=== PATIENT | female | born 1930 | race Caucasian/White ===

== ENCOUNTER 2016-09-11 06:42 | Outpatient (CLI) ==
[2016-08-30 08:15] VITALS: BMI 18.3
== END 2016-09-11 06:43 | disposition home or self-care (01) ==
LOC: AMBL 06:42
PROVIDERS: ATTEND Family Medicine
DX: R10.9 Unspecified abdominal pain (principal); I48.91 Unspecified atrial fibrillation; R19.5 Other fecal abnormalities; R53.1 Weakness; Z87.19 Personal history of other diseases of the digestive system; J44.9 Chronic obstructive pulmonary disease, unspecified; I50.9 Heart failure, unspecified

== ENCOUNTER 2016-09-27 04:23 | Outpatient (CLI) ==
[2016-09-27 07:50] VITALS: BMI 17.9
== END 2016-09-27 04:24 | disposition home or self-care (01) ==
LOC: AMBL 04:23
PROVIDERS: ATTEND Family Medicine
DX: R50.9 Fever, unspecified (principal); R11.10 Vomiting, unspecified; R09.02 Hypoxemia

== ENCOUNTER 2016-09-27 04:31 | Inpatient (IN) | payer OTHER ==
[2016-09-27] MEDS ORDERED: URO-JET MUCOUSMEMB STA (04:51)
[2016-09-27 05:08] LABS: BASOPHILS % (AUTO) 0.2 % (0.0-3.0); EOSINOPHILS # (AUTO) 0.1 K/ul (0.0-0.7); EOSINOPHILS % (AUTO) 0.3 % (0.0-7.0); HEMATOCRIT 38.3 % (37.0-47.0); HEMOGLOBIN 11.7 g/dl (12.0-16.0); IMMATURE GRANULOCYTE % (AUTO) 0.4 % (0.0-5.0); LYMPHOCYTES # (AUTO) 0.4 K/uL (0.60-3.4); LYMPHOCYTES % (AUTO) 2.4 (10.0-50.0); MEAN CORPUSCULAR HEMOGLOBIN 28.6 pg (27.0-31.0); MEAN CORPUSCULAR HGB CONC 30.5 (31.8-35.4); MEAN CORPUSCULAR VOLUME 93.6 fl (81.0-99.0); MONOCYTES # (AUTO) 0.5 K/uL (0.4-2.0); NEUTROPHILS # (AUTO) 14.4 K/ul (2.0-6.9); NEUTROPHILS % (AUTO) 93.7; PLATELET COUNT 335 10^3/uL (140-440); RED BLOOD COUNT 4.09 10^6/ul (4.20-5.40); WHITE BLOOD COUNT 15.31 K/ul (4.6-10.2)
[2016-09-27 05:32] LABS: FLU INTERNAL QC INTERNAL QC VALID; RAPID FLU A NEGATIVE (NEGATIVE); RAPID FLU B NEGATIVE (NEGATIVE)
[2016-09-27 05:35] LABS: ALBUMIN 3.1 g/dL (3.4-5.0); ALBUMIN/GLOBULIN RATIO 0.89; ANION GAP 15.8; BILIRUBIN,TOTAL 0.44 mg/dL (0.00-1.20); BUN/CREATININE RATIO 15.58; CALCIUM 8.9 mg/dL (8.2-10.2); CREATININE 0.77 mg/dL (0.60-1.30); POTASSIUM 3.8 mmol/L (3.5-5.10); TOTAL PROTEIN 6.6 g/dL (5.8-8.1); TROPONIN I 0.034 ng/ml (0.0000-0.4000)
--- NOTE | 2016-09-27 05:46 | CT ---
Exam: CT of the chest without contrast History: Vomiting and fever Technique: [address] of the chest without intravascular contrast FINDINGS: The lung windows show moderate to this change. Parenchymal scarring is present mostly on the right stable from 08/29/2015. There is also atelectasis in the right base adjacent to the diap hragm. No infiltrative opacities. Heavy atherosclerotic calcification of the aorta without aneurysm . Atherosclerotic calcification of the coronary arteries. No pathologic lymph node enlargement of the mediastinum. Granulomatous lymph node calcifications of the mediastinum. No acute abnormalitie s of the chest wall soft tissues or bony thorax. Chronic wedge deformity of T12. No acute abnormal ities of the upper abdomen. Impression: 1. Thick linear opacity in the right lung base favoring atelectasis. Small focus of underlying pneum onia not excluded. 2. Emphysematous change and parenchymal scarring, stable from 08/29/2015.
[2016-09-27 05:47] LABS: ADD URINE MICROSCOPIC NO; BILIRUBIN,URINE Negative (NEGATIVE); KETONES,URINE Trace (NEGATIVE); LEUKOCYTE ESTERASE ,URINE Negative (NEGATIVE); NITRITE,URINE Negative (NEGATIVE); PROTEIN,URINE Negative (NEGATIVE); URINE, BLOOD Negative (NEGATIVE)
--- NOTE | 2016-09-27 05:48 | ED.PDOC ---
General ED Provider: Dr. FAM BAEZ-ER Chief Complaint: Nausea/Vomiting Stated Complaint: sent from co with vomiting and fever Time Seen by Physician: 04:40 Mode of Arrival: Ambulance Information Source: Patient Exam Limitations: No limitations Primary Care Provider: KELI GUPTA Nursing and Triage Documentation Reviewed and Agree: Yes Miscellaneous Complaint Exam - Febrile Illness/Adult Complaint/Exam Onset/Duration: one hour Symptoms Are: Still present Timing: Constant Highest Temperature Recorded: 101 Initial Severity: Mild Current Severity: Mild Aggravating: Reports: None Alleviating: Reports: None Associated Signs and Symptoms: Reports: Short of air, Cough, Nausea, Vomiting. Denies: Headache, Fluid intake, Sore throat, Chills, Diaphoresis, Dysuria, Arthralgia, Stiff neck, Myalgia, Rash, Altered mental status Related History: Denies: Similar episode, Recent tick bite, Recent tick exposure Pseudomonas Risk Factors: Reports: Chronic Lung Disease Current Antibiotic Use: No Specific Findings: Absent: Meningeal signs, Diaphoresis, Joint swelling, Erythema, Cellulitis, Lymphadenopathy, Petechiae, CVA tenderness Differential Diagnoses: Abdominal Infection, Abdominal Abscess, Pneumonia, Pyelonephritis Quality Indicator For Non-Traumatic Chest Pain/Syncope: EKG Performed Review of Systems - Review Of Systems Constitutional: Reports: Fever Eyes: Reports: No symptoms Ears, Nose, Mouth, Throat: Reports: No symptoms Respiratory: Reports: No symptoms Cardiac: Reports: No symptoms GI: Reports: Nausea, Vomiting : Reports: No symptoms Musculoskeletal: Reports: No symptoms Skin: Reports: No symptoms Neurological: Reports: No symptoms Endocrine: Reports: No symptoms Hematologic/Lymphatic: Reports: No symptoms All Other Systems: Reviewed and Negative Past Medical History - Past Medical History Endocrine: Reports: None Cardiovascular: Reports: None Respiratory: Reports: COPD, Asthma Hematological: Reports: None Gastrointestinal: Reports: None Genitourinary: Reports: None Neuro/Psych: Reports: None Musculoskeletal: Reports: Joint Pain, Other (LEFT THIGH PAIN- RECENT FEMUR FRACTURE-IN [facility] IN JUNE FOR REHAB) Cancer: Reports: None Last Menstrual Period: n/a Other Pertinent Past Medical History: LIVES ALONE EATS POORLY PER FAMILY- ATE BETTER WHEN MEALS PROVIDED AT [facility] - Surgical History General Surgical History: Reports: Hysterectomy - Family History Family History: Reports: Unknown - Social History Smoking Status: Former smoker Hx Substance Use: No Alcohol Screening: None Lives: With family - Immunizations Tetanus Shot up to Date: No (unknown) Physical Exam - Physical Exam Appearance: Well-appearing, No pain distress, Well-nourished Eyes: SARAH ENT: Ears normal, Nose normal, Oropharynx normal Neck: Supple Respiratory: Airway patent, Crackles Cardiovascular: RRR, Pulses normal, No rub, No murmur GI/: Soft, Nontender, No masses, Bowel sounds normal, No Organomegaly Musculoskeletal: Normal strength, ROM intact, No edema, No calf tenderness Skin: Warm, Dry, Normal color Neurological: Sensation intact, Motor intact, Reflexes intact, Cranial nerves intact, Alert, Oriented Psychiatric: Affect appropriate, Mood appropriate Interpretation - Radiology Interpretation Radiology Interpretation By: Radiologist Radiology Results: Positive Exam Interpreted: CT Scan - EKG Interpretation Time of EKG #1: 06:25 Rate: Tachy Rhythm: Sinus Ectopy: None Orwell: NL ST Segment: Normal Re-Evaluation - Re-Evaluation Time of Re-Evaluation: 06:25 Status: Unchanged Vital Signs Stable: Yes Pain Level: 0 Appearance: NAD Lungs: Clear Skin: Warm and Dry Neuro: Alert and Oriented X3 CV: RRR Physician Notification - Case Discussed Physician Notified: dr castillo Time of Notification: 06:26 Critical Care Note - Critical Care Note Total Time (mins): 0 Course - Course Hematology/Chemistry: 09/27/16 05:00 09/27/16 05:00 Orders, Labs, Meds: Lab Review 09/27/16 09/27/16 09/27/16 05:00 05:02 05:40 WBC 15.31 H RBC 4.09 L Hgb 11.7 L Hct 38.3 MCV 93.6 MCH 28.6 MCHC 30.5 L RDW Coeff of Sherri 15.1 H Plt Count 335 Immature Gran % (Auto) 0.4 Neut % (Auto) 93.7 Lymph % (Auto) 2.4 L [place] % (Auto) 3.0 Eos % (Auto) 0.3 Baso % (Auto) 0.2 Immature Gran # (Auto) 0.1 Neut # 14.4 H Lymph # 0.4 L [place] # 0.5 Eos # 0.1 Baso # 0.0 Puncture Site Lb O2 Saturation 96.0 ABG pH 7.476 H ABG pCO2 48.1 H ABG pO2 77.0 L ABG HCO3 35.4 H ABG Total CO2 37 H ABG Base Excess 12 H Girma Test + O2 Delivery Device Nc Oxygen Liter Flow 3.00 FiO2 % 32.0 Sodium 143 Potassium 3.8 Chloride 97 L Carbon Dioxide 34 H Anion Gap 15.8 BUN 12 Creatinine 0.77 Estimated GFR (MDRD) 71.00 BUN/Creatinine Ratio 15.58 Glucose 111 Calcium 8.9 Total Bilirubin 0.44 AST 18 ALT 11 L Alkaline Phosphatase 86 Total Creatine Kinase 19 Troponin I 0.0340 Total Protein 6.6 Albumin 3.1 L Globulin 3.5 Albumin/Globulin Ratio 0.89 Amylase 59 Lipase 11 Urine Color Yellow Urine Clarity Clear Urine pH 7.0 Ur Specific [place] 1.015 Urine Protein Negative Urine Glucose (UA) Negative Urine Ketones Trace Urine Blood Negative Urine Nitrite Negative Urine Bilirubin Negative Urine Urobilinogen 0.2 Ur Leukocyte Esterase Negative Influenza A (Rapid) Negative Influenza B (Rapid) Negative Orders Category Date Time Status ABG DRAW REQUEST Stat CARDIO 09/27/16 05:02 Completed EKG-(ED ONLY) Stat CARDIO 09/27/16 04:51 Completed Reid [ED CATHETER INSERTION AND CARE] .ONCE EMERGENCY 09/27/16 04:51 Active IV [ED IV/MEDIPORT/POWERPORT] .ONCE EMERGENCY 09/27/16 06:04 Active AMYLASE Stat LAB 09/27/16 05:00 Completed ARTERIAL BLOOD GAS [ABG] Stat LAB 09/27/16 05:02 Completed BLOOD CULTURE Stat LAB 09/27/16 05:00 Received CBC W/ AUTO DIFF Stat LAB 09/27/16 05:00 Completed COMPREHENSIVE METABOLIC PANEL Stat LAB 09/27/16 05:00 Completed CREATINE KINASE Stat LAB 09/27/16 05:00 Completed LIPASE Stat LAB 09/27/16 05:00 Completed MOLECULAR GROUP A STREP Stat LAB 09/27/16 05:00 Results RAPID FLU A/B Stat LAB 09/27/16 05:00 Completed STREP SCREEN Stat LAB 09/27/16 05:00 Results THEOPHYLLINE Stat LAB 09/27/16 05:00 Received TROPONIN I Stat LAB 09/27/16 05:00 Completed URINALYSIS C & S IF INDICATED Stat LAB 09/27/16 05:40 Completed 0.9 % Sodium Chloride [Saline Flush] MEDS 09/27/16 06:04 Ordered 1 syr IVF PRN PRN Levofloxacin/D5w [Levaquin] 500 mg MEDS 09/27/16 06:04 Active Premix 100 ml D5w 1 bag IV ONCE Lidocaine HCl [Uro-Jet] MEDS 09/27/16 04:51 Discontinued 10 ml [id number] ONCE STA Sodium Chloride 0.9% [Sodium Chloride] 1,000 ml MEDS 09/27/16 06:04 Active IV 30 mls/hr CT ABDOMEN/PELVIS WO CONTRAST Stat RADS 09/27/16 04:[address] CHEST W/O CONTRAST Stat RADS 09/27/16 04:52 Completed Medications Generic Name Dose Route Start Last Admin Trade Name Freq PRN Reason Stop Dose Admin Levofloxacin/Dextrose 500 mg/ 100 mls @ 100 mls/hr 09/27/16 06:04 Dextrose IV 09/27/16 07:03 ONCE STA Sodium Chloride 1,000 mls @ 30 mls/hr 09/27/16 06:04 Sodium Chloride IV 09/28/16 15:23 .[id number] STA Sodium Chloride 1 syr 09/27/16 06:04 Saline Flush IVF PRN PRN To flush IV Discontinued Medications Generic Name Dose Route Start Last Admin Trade Name Freq PRN Reason Stop Dose Admin Lidocaine HCl 10 ml 09/27/16 04:51 09/27/16 05:46 Uro-Jet [id number] 09/27/16 04:52 10 ml ONCE STA Administration Vital Signs: Temp Pulse Resp BP Pulse Ox 09/27/16 04:32 100.8 F H 104 H 24 109/62 88 L Departure - Departure Time of Disposition: 06:26 Disposition: ADMITTED INPATIENT Discharge Problem: Pneumonia Qualifiers: Pneumonia type: due to unspecified organism Laterality: right Lung location: lower lobe of lung Qualifier Code: (J18.9) Pneumonia, unspecified organism Instructions: Pneumonitis (ED) Condition: Fair Pt referred to PMD for follow-up: Yes Allergies/Adverse Reactions: Allergies Penicillins Adverse Reaction (Verified 08/30/16 08:21) Home Medications: Ambulatory Orders Gabapentin 100 mg PO BID 03/22/13 Hydroxyzine HCl [Atarax] 25 mg PO BID PRN 03/22/13 Simvastatin [Zocor] 40 mg PO BEDTIME 03/22/13 Theophylline Anhydrous [Theophylline] 300 mg PO BEDTIME 03/22/13 Vitamin E 400 unit PO DAILY 03/22/13 Furosemide [Lasix Tab] 1 tab PO DAILY 07/03/13 Alprazolam 0.25 mg PO TID 08/29/15 Escitalopram Oxalate [Lexapro] 10 mg PO DAILY 30 Days 09/08/15 Acetaminophen [Tylenol] 500 mg PO Q12H 08/30/16 Amlodipine Besylate 5 mg PO DAILY 08/30/16 Beta-Carotene(A) W-C & E/Min [Vision Vitamins] 1 each PO BID 08/30/16 Budesonide/Formoterol Fumarate [Symbicort 160-4.5 Mcg Inhaler] 1 puff IH BID PRN 08/30/16 Calcium Carbonate/Vitamin D3 [Calcium 600 + Vit D Tablet] 2 each PO DAILY Cyanocobalamin (Vitamin B-12) [B-12] 500 mcg PO DIRECTED 08/30/16 Polyethylene Glycol 3350 [Miralax] 17 gm PO ONCE PRN 08/30/16 Potassium Chloride [K-Dur] 20 meq PO DAILY 08/30/16 Cholecalciferol (Vitamin D3) [Vitamin D] 1,000 mg PO DAILY 09/27/16 Ferrous Sulfate 325 mg PO DAILY 09/27/16 Hydrocodone Bit/Acetaminophen [[place] 5-325] 5 - 325 mg PO DAILY 09/27/16 Ipratropium/Albuterol Sulfate [Iprat-Albut 0.5-3(2.5) mg/3 ml] 0.5 - 2.5 inh IH QID 09/27/16 Pantoprazole Sodium [Protonix] 40 mg PO DAILY 09/27/16 Tizanidine HCl 4 mg PO DAILY 09/27/16 Disposition Discussed With: Patient, Family
--- NOTE | 2016-09-27 05:49 | CT ---
Exam: CT of the abdomen and pelvis without contrast History: Vomiting Technique: [address] of the abdomen and pelvis without intravascular contrast FINDINGS: Compared with 01/28/2014. No significant liver abnormality. The adrenals, pancreas and sp emi are unremarkable. The stomach and hiatus are unremarkable. A dense cyst in the lower left kidne y stable from prior studies. The kidneys and collecting system are unremarkable otherwise. Prior a ortic stent graft with stable aneurysm sac. Bowel loops demonstrate normal caliber. No inflamatory c hange seen in the mesentery or retroperitoneum. Anastomotic bowel sutures noted in the lower abdomen . A few sigmoid colonic diverticula. No inflammation of the pelvic fat. No free pelvic fluid. Prior hysterectomy. Normal urinary bladder. No acute findings of the skeleton. Left hip transfemoral n ail. Chronic T12 wedge deformity Impression: 1. No inflammatory process, bowel or urinary obstruction is seen. 2. Prior aortic stent graft 3. Prior bowel surgery 4. Colonic diverticulosis of the sigmoid
[2016-09-27] MEDS ORDERED: LEVAQUIN 500 MG in PREMIX 100 ML D5W 1 BAG IV STA (06:04)
[2016-09-27] MEDS ORDERED: SODIUM CHLORIDE 1,000 ML IV STA (06:04)
[2016-09-27 06:19] LABS: ABG PCO2 48.1 mmHg (35-45); ABG PH 7.476 (7.35-7.45)
[2016-09-27 06:20] LABS: ABG BASE EXCESS 12 (-2.0-2.0); ABG HCO3 35.4 (22.0-26.0); ABG TCO2 37 (22.0-28.0)
[2016-09-27] MEDS ORDERED: ATARAX PO PRN (06:31)
[2016-09-27] MEDS ORDERED: MIRALAX PO PRN (06:31)
[2016-09-27] MEDS ORDERED: LEVAQUIN 100 ML IV ONE (06:32)
[2016-09-27] MEDS ORDERED: ZOFRAN 4 MG/2 ML IVP PRN (06:35)
[2016-09-27] MEDS ORDERED: NON-FORMULARY MEDICATION (Cyanocobalamin (Vitamin B-12) [B-12] 500 MCG) PO SCH ×22 (06:45)
[2016-09-27 07:50] VITALS: BMI 17.9
[2016-09-27] MEDS ORDERED: NON-FORMULARY MEDICATION (Ferrous Sulfate [Ferrous Sulfate] 325 MG) PO SCH ×22 (09:00)
[2016-09-27] MEDS ORDERED: ROCEPHIN 1 GM in SODIUM CHLORIDE 100 ML IV SCH (09:00)
[2016-09-27] MEDS ORDERED: VANCOMYCIN 1 GM in SODIUM CHLORIDE 250 ML IV SCH (09:00)
[2016-09-27] MEDS ORDERED: VANCOMYCIN 750 MG in SODIUM CHLORIDE 250 ML IV SCH (09:00)
[2016-09-27] MEDS: SOLU-MEDROL 40 MG IVP SCH ×2 (09:20→21:35)
[2016-09-27] MEDS: LOVENOX SUBCUT SCH (09:30)
[2016-09-27] MEDS: NEURONTIN PO SCH ×2 (09:31→21:34)
[2016-09-27] MEDS: ZANAFLEX PO SCH ×3 (09:31→21:35)
[2016-09-27] MEDS: K-DUR PO SCH (09:31)
[2016-09-27] MEDS: NORVASC PO SCH (09:31)
[2016-09-27] MEDS: PROTONIX PO SCH (09:31)
[2016-09-27] MEDS: LEXAPRO PO SCH (09:31)
[2016-09-27] MEDS: XANAX PO SCH ×3 (09:31→21:35)
[2016-09-27] MEDS: LASIX TAB PO SCH (09:32)
[2016-09-27] MEDS: NORCO 5-325 PO SCH (09:32)
[2016-09-27] MEDS: FERROUS SULFATE PO SCH (09:32)
[2016-09-27] MEDS: SYMBICORT 160-4.5 MCG INHALER IH SCH ×2 (09:47→21:34)
[2016-09-27] MEDS: DUONEB NEB SCH ×3 (11:09→23:27)
--- NOTE | 2016-09-27 14:44 | HP ---
DATE OF SERVICE: 09/27/16 CHIEF COMPLAINT: Nausea, vomiting, fever. HISTORY OF PRESENT ILLNESS: This 86 year old WHITE/ F was hospitalized 09/27/16. The patient is admitted with pneumonia. This morning the nurse at the [facility] checked the patient's temperature and it was 101; therefore, the patient was sent to the hospital. Dr. English did a CT of the chest which showed right lower lobe pneumonia, health care facility acquired. The patient was feeling weak and tired and in view of COPD, oxygen dependent and cachexia, the patient was admitted to the hospital for breathing treatments and antibiotics. REVIEW OF SYSTEMS: CONSTITUTIONAL: Weakness and fever. No chills. ENDOCRINE: No weight loss or weight gain. HEENT: No sinus drainage, no sore throat. CVS: No angina symptoms. No CHF symptoms. No palpitations. No atypical chest pain for CAD. Shortness of breath on exertion. RESPIRATORY: Cough and congestion, unable to bring up any phlegm. GI: No melena. No abdominal pain. No nausea, no vomiting. : No hematuria. No polyuria. SKIN: No rash. No wounds. MUSCULOSKELETAL: No pain. TOY ASSEMBLER: No blackout, no dizziness. No headache. No double vision. PSYCHIATRIC: Not anxious; no depression. No suicidal thoughts. No homicidal thoughts. PAST MEDICAL/SURGICAL HISTORY: 1. COPD 2. Anemia with recent GI bleed 3. Recent femur fracture 3. Dyslipidemia 4. Peripheral neuropathy 5. DJD spine 6. Hypertension 7. Anxiety disorder 8. Coronary artery disease status post stent 9. Hysterectomy PERSONAL/FAMILY/SOCIAL HISTORY: The patient is ; lives by herself - has been in the [facility] for rehabilitation. Former smoker - doesn't smoke now. No alcohol use. She can do most activities of daily living. Family History - colon cancer. MEDICATIONS: (Home) 1. Vitamin E 400 unit p.o. daily 2. Gabapentin 100 mg p.o. b.i.d. 3. Theophylline 300 mg p.o. bedtime 4. Simvastatin 40 mg p.o. bedtime 5. Hydroxyzine 25 mg p.o. b.i.d. p.r.n. 6. Furosemide 20 mg one tab p.o. daily 7. Alprazolam 0.25 mg p.o. t.i.d. 8. Escitalopram 10 mg p.o. daily 9. K-Dur 20 mEq p.o. daily 10. Cyanocobalamin 500 mcg p.o. as directed 11. Calcium Carbonate/Vitamin D3 one tablet two each p.o. daily 12. Acetaminophen 500 mg p.o. q.12h 13. Budesonide/Formoterol one puff IH b.i.d. p.r.n. 14. Amlodipine 5 mg p.o. daily 15. MiraLax 17 gm p.o. once p.r.n. 16. Beta-Caratene (vision vitamins) one each p.o. b.i.d. 17. Pantoprazole 40 mg p.o. daily 18. Ferrous Sulfate 325 mg p.o. daily 19. Cholecalciferol 1,000 mg p.o. daily 20. Ipratropium 0.5-2.5 INH IH q.i.d. 21. Tizanidine 4 mg p.o. daily 22. Hydrocodone/Acetaminophen ([place]) 5-325 mg p.o. daily ALLERGIES: PENICILLIN (the patient does not remember what the adverse reaction is when taking penicillin) PHYSICAL EXAMINATION: GENERAL: Cachetic appearing lady of small stature, sitting up in bed in no distress. VITAL SIGNS: Temperature 99.3 F, Pulse 96, Respiratory Rate 20, BP 109/62, Pulse Ox 89% HEENT: Normocephalic, atraumatic. Mucosa is dry, pallor positive. NECK: No JVP, no carotid bruit. No lymphadenopathy. CARDIAC: S1, S2, no S3. No murmur, gallop or regurgitation. LUNGS: Decreased entry. Basilar crackles right more than left. ABDOMEN: Soft, non-tender. Bowel sounds active. No rigidity, guarding or CVA tenderness. EXTREMITIES: No clubbing, cyanosis or edema. NEUROLOGIC: Awake, alert and oriented x3. LYMPHATIC: No palpable lymph nodes SKIN: Not dry. Intact. MUSCULOSKELETAL: No joint swelling. ASSESSMENT: 1. Health care facility acquired pneumonia. 2. COPD, oxygen dependent. 3. Anemia with recent GI bleed. 4. Osteoporosis/osteoarthritis. PLAN: 1. Admit to the regular floor. 2. CBC, CMP daily. 3. Diet - cardiac and regular. 4. Vancomycin. 5. Duonebs. 6. Daily I & O's. 8. Stop Levaquin. 9. Rocephin 1 gm daily. 10. Have the patient up and ambulatory 11. Solu-Medrol 12. Begin regular diet. Plan and coordination of the patient's care discussed in the presence of Director Of Business Continuity and nurse. CONDITION: Stable SCRIBED BY: ZHANNA RICHARD Software Sales Executive scribed while in presence of service performed by Dr. KEMAR LIM on 09/27/16 ([id number]) [facility]OCKER HOSPITALShawna
[2016-09-27] MEDS ORDERED: THEOPHYLLINE ANHYDROUS 300 MG PO SCH ×22 (21:00)
[2016-09-27] MEDS: ZOCOR PO SCH (21:34)
[2016-09-27] MEDS: THEO-DUR PO SCH (21:34)
[2016-09-28 04:45] LABS: BASOPHILS % (AUTO) 0.1 % (0.0-3.0); HEMATOCRIT 31.3 % (37.0-47.0); HEMOGLOBIN 9.7 g/dl (12.0-16.0); IMMATURE GRANULOCYTE % (AUTO) 0.4 % (0.0-5.0); LYMPHOCYTES # (AUTO) 0.3 K/uL (0.60-3.4); LYMPHOCYTES % (AUTO) 3.8 (10.0-50.0); MEAN CORPUSCULAR HEMOGLOBIN 28.9 pg (27.0-31.0); MEAN CORPUSCULAR VOLUME 93.2 fl (81.0-99.0); MONOCYTES # (AUTO) 0.1 K/uL (0.4-2.0); NEUTROPHILS # (AUTO) 7.2 K/ul (2.0-6.9); NEUTROPHILS % (AUTO) 94.7; PLATELET COUNT 311 10^3/uL (140-440); RED BLOOD COUNT 3.36 10^6/ul (4.20-5.40); WHITE BLOOD COUNT 7.62 K/ul (4.6-10.2)
[2016-09-28 05:07] LABS: ALBUMIN 2.5 g/dL (3.4-5.0); ALBUMIN/GLOBULIN RATIO 0.81; ANION GAP 12.9; BILIRUBIN,TOTAL 0.19 mg/dL (0.00-1.20); BUN/CREATININE RATIO 23.28; CALCIUM 8.3 mg/dL (8.2-10.2); CREATININE 0.73 mg/dL (0.60-1.30); POTASSIUM 3.9 mmol/L (3.5-5.10); TOTAL PROTEIN 5.6 g/dL (5.8-8.1)
[2016-09-28] MEDS: DUONEB NEB SCH ×3 (05:30→18:10)
[2016-09-28] MEDS: LASIX TAB PO SCH (05:43)
[2016-09-28] MEDS: PROTONIX PO SCH (05:43)
[2016-09-28] MEDS: XANAX PO SCH ×3 (08:32→20:49)
[2016-09-28] MEDS: NORCO 5-325 PO SCH (08:32)
[2016-09-28] MEDS: NORVASC PO SCH (08:33)
[2016-09-28] MEDS: NEURONTIN PO SCH ×2 (08:33→20:49)
[2016-09-28] MEDS: ROCEPHIN 1 GM in SODIUM CHLORIDE 50 ML IV SCH (08:33)
[2016-09-28] MEDS: LEXAPRO PO SCH (08:33)
[2016-09-28] MEDS: FERROUS SULFATE PO SCH (08:33)
[2016-09-28] MEDS: K-DUR PO SCH (08:33)
[2016-09-28] MEDS: LOVENOX SUBCUT SCH (08:34)
[2016-09-28] MEDS: SOLU-MEDROL 40 MG IVP SCH ×2 (08:34→21:10)
[2016-09-28] MEDS: SYMBICORT 160-4.5 MCG INHALER IH SCH ×2 (08:39→20:49)
[2016-09-28] MEDS ORDERED: LEVAQUIN 500 MG in PREMIX 100 ML D5W 1 BAG IV SCH (09:00)
[2016-09-28] MEDS: VANCOMYCIN 500 MG in SODIUM CHLORIDE 100 ML IV SCH (09:17)
--- NOTE | 2016-09-28 10:50 | PCM.PROG ---
Attending Provider: ATTENDING PROVIDER: Dr. KEMAR LIM DATE OF SERVICE: 09/28/16 SUBJECTIVE: This 86 year old WHITE/ F was hospitalized 09/27/16. The patient is improving. The patient states she has been up walking. Discussed discharge. No fever, no chills. Shortness of breath is less. Coughing less. REVIEW OF SYSTEMS: CONSTITUTIONAL: No fever, no chills. ENDOCRINE: No weight loss or weight gain. HEENT: No sinus drainage, no sore throat. CVS: No angina symptoms. No CHF symptoms. No palpitations. No atypical chest pain for CAD. Less shortness of breath. RESPIRATORY: Less cough. No hemoptysis. GI: No melena. No abdominal pain. No nausea, no vomiting. : No hematuria. No polyuria. SKIN: No rash. No wounds. MUSCULOSKELETAL: No complaints of pain. MANAGER FASHION: No blackout, no dizziness. No headache. No double vision. PSYCHIATRIC: Not anxious; no depression. No suicidal thoughts. No homicidal thoughts. PHYSICAL EXAMINATION: GENERAL: Cachetic appearing lady of small stature lying in bed in no distress. VITAL SIGNS: Temperature 97.5 F, Pulse 95, Respiratory Rate 16, BP 104/57, Pulse Ox 95% HEENT: Normocephalic, atraumatic. Mucosa is dry, pallor positive. NECK: No JVP, no carotid bruit. No lymphadenopathy. CARDIAC: S1, S2, no S3. No murmur, gallop or regurgitation. LUNGS: Decreased entry, right basilar crackles. ABDOMEN: Soft, non-tender. Bowel sounds active. No rigidity, guarding or CVA tenderness. EXTREMITIES: No clubbing, cyanosis or edema. NEUROLOGIC: Awake, alert and oriented x3. LYMPHATIC: No palpable lymph nodes SKIN: Not dry. Intact. MUSCULOSKELETAL: No joint swelling. LAB REVIEW: 09/28/16 04:39 09/28/16 04:39 09/28/16 04:39: WBC 7.62 D, RBC 3.36 L, Hgb 9.7 L, Hct 31.3 L D, MCV 93.2, MCH 28.9, MCHC 31.0 L, RDW Coeff of Sherri 15.1 H, Plt Count 311, Immature Gran % (Auto ) 0.4, Neut % (Auto) 94.7, Lymph % (Auto) 3.8 L, [place] % (Auto) 1.0, Eos % (Auto ) 0.0, Baso % (Auto) 0.1, Immature Gran # (Auto) 0.0, Neut # 7.2 H, Lymph # 0.3 L, [place] # 0.1 L, Eos # 0.0, Baso # 0.0, Sodium 142, Potassium 3.9, Chloride 102 , Carbon Dioxide 31, Anion Gap 12.9, BUN 17, Creatinine 0.73, Estimated GFR ( MDRD) 75.00, BUN/Creatinine Ratio 23.28, Glucose 186 H D, Calcium 8.3, Total Bilirubin 0.19, AST 11 L, ALT 9 L, Alkaline Phosphatase 69, Total Protein 5.6 L , Albumin 2.5 L, Globulin 3.1, Albumin/Globulin Ratio 0.81 ASSESSMENT: 1. Pneumonia, health care facility acquired 2. COPD, oxygen dependent 3. Anemia with recent GI bleed 4. Osteoporosis/osteoarthritis PLAN: Plan and coordination of the patient's care discussed in the presence of Technical Designer and nurse. CONDITION: Stable SCRIBED BY: ZHANNA RICHARD Shop Helper scribed while in presence of service performed by Dr. KEMAR LIM on 09/28/16 ([id number])
[2016-09-28] MEDS: THEO-DUR PO SCH (20:49)
[2016-09-28] MEDS: ZANAFLEX PO SCH (20:49)
[2016-09-28] MEDS: ZOCOR PO SCH (20:50)
[2016-09-28 21:17] LABS: OCCULT BLOOD INTERNAL QC 1 INTERNAL QC VALID; OCCULT BLOOD SAMPLE 1 NEGATIVE (NEGATIVE)
[2016-09-29 00:04] LABS: OCCULT BLOOD INTERNAL QC 2 INTERNAL QC VALID; OCCULT BLOOD INTERNAL QC 3 INTERNAL QC VALID; OCCULT BLOOD SAMPLE 2 NO SPECIMEN RECEIVED (NEGATIVE); OCCULT BLOOD SAMPLE 3 NO SPECIMEN RECEIVED (NEGATIVE)
[2016-09-29] MEDS: DUONEB NEB SCH ×3 (00:19→11:05)
[2016-09-29 05:06] LABS: BASOPHILS % (AUTO) 0.1 % (0.0-3.0); HEMATOCRIT 31.7 % (37.0-47.0); HEMOGLOBIN 9.5 g/dl (12.0-16.0); LYMPHOCYTES # (AUTO) 0.4 K/uL (0.60-3.4); LYMPHOCYTES % (AUTO) 3.5 (10.0-50.0); MEAN CORPUSCULAR HEMOGLOBIN 28.4 pg (27.0-31.0); MEAN CORPUSCULAR VOLUME 94.6 fl (81.0-99.0); MONOCYTES # (AUTO) 0.2 K/uL (0.4-2.0); MONOCYTES % (AUTO) 1.9 (0-10); NEUTROPHILS % (AUTO) 93.5; PLATELET COUNT 306 10^3/uL (140-440); RED BLOOD COUNT 3.35 10^6/ul (4.20-5.40); WHITE BLOOD COUNT 11.78 K/ul (4.6-10.2)
[2016-09-29 05:29] LABS: ALBUMIN 2.7 g/dL (3.4-5.0); ALBUMIN/GLOBULIN RATIO 0.9; ANION GAP 15.3; BILIRUBIN,TOTAL 0.21 mg/dL (0.00-1.20); BUN/CREATININE RATIO 22.22; CALCIUM 8.3 mg/dL (8.2-10.2); CREATININE 0.63 mg/dL (0.60-1.30); POTASSIUM 4.3 mmol/L (3.5-5.10); TOTAL PROTEIN 5.7 g/dL (5.8-8.1)
[2016-09-29] MEDS: LASIX TAB PO SCH (05:33)
[2016-09-29] MEDS: PROTONIX PO SCH (05:33)
[2016-09-29] MEDS: SOLU-MEDROL 40 MG IVP SCH (09:09)
[2016-09-29] MEDS: ROCEPHIN 1 GM in SODIUM CHLORIDE 50 ML IV SCH (09:36)
[2016-09-29] MEDS: SYMBICORT 160-4.5 MCG INHALER IH SCH (09:36)
[2016-09-29] MEDS: NORVASC PO SCH (09:37)
[2016-09-29] MEDS: K-DUR PO SCH (09:37)
[2016-09-29] MEDS: LEXAPRO PO SCH (09:37)
[2016-09-29] MEDS: NORCO 5-325 PO SCH (09:37)
[2016-09-29] MEDS: LOVENOX SUBCUT SCH (09:37)
[2016-09-29] MEDS: XANAX PO SCH (09:38)
[2016-09-29] MEDS: FERROUS SULFATE PO SCH (09:38)
[2016-09-29] MEDS: NEURONTIN PO SCH (09:38)
[2016-09-29 10:20] VITALS: BP 112/45; TEMP 98.6
[2016-09-29] MEDS: VANCOMYCIN 500 MG in SODIUM CHLORIDE 100 ML IV SCH (10:26)
--- NOTE | 2016-09-30 10:07 | DS ---
DATE OF SERVICE: 09/29/16 FINAL DIAGNOSIS: 1. COPD Exacerbation secondary to the pneumonia 2. Right lower lobe pneumonia, health care facility acquired 3. COPD oxygen dependant 4. Anemia with recent GI bleed; seen and evaluated by GI doctor at [facility], did not have any endoscopic colonoscopy secondary to poor health condition. 5. Osteoporosis 6. Osteoarthritis 7. Weight loss, cachexia 8. Angina 9. Abdominal aortic aneurism with repair 10. History of colon cancer 11. Cataract surgery DISCHARGE INSTRUCTIONS: Discharge patient home. Instructed to see Dr. Bermudez in 5-7 days. [facility] for the nursing services. Resume home medication per list. MEDICATIONS AT DISCHARGE: Tylenol Xanax Norvasc Vitamin tablets Symbicort Calcium/Vitamin D Lexapro Ferrous Sulfate Lasix Neurontin Hydrocodone Atarax Protonix Simvastatin NEW PRESCRIPTIONS: Keflex 500mg twice a day for five days Medrol Dosepak DIET INSTRUCTIONS: As tolerated. Stay well hydrated. ACTIVITY: Get plenty of rest and resume regular activity. SMOKING: Former smoker DISEASE SPECIFIC EDUCATION: COPD Pneumonia and pneumonia vaccine been discussed. HOSPITAL COURSE: Gaye Garcia who is a 86 year old female who was in the senior living started feeling cough, congestion and one time vomiting and fever was 101. At that time the nurses at the senior living sent the patient to the emergency room and was seen by Dr. English for the evaluation. ABG was done which showed the pH 7.47, pCO2 48, pO2 77, WBC 15,000, BUN and creatinine was normal. CT scan of the abdomen was negative. Serology was negative. Theophylline was normal. CT scan of the chest showed the right lower lobe pneumonia. In review of the patient being at the senior living the patient was admitted with the health care facility acquired pneumonia. Vancomycin, Rocephin and Solu-Medrol was given and the DUO NEBS were given. Gradually the patient started feeling better and did not have any problem. She was up and about and walking. Hgb did drop some. The patient had recent history of GI bleed and was transferred to the [facility] the endoscopy and colonoscopy but Dr. Martinez saw the patient and suggested not to have any endoscopy and colonoscopy as the patient is old and the multiple medical problems and verbalized understand. They did the 2 units transfusion and ever since she has been fine. As of now hgb is stable. No aggressive management was done for that. As patient was doing fine and did not have any problem the patient is being discharged home today. NAEL
--- NOTE | 2016-09-30 10:18 | PN ---
DATE OF SERVICE: 09/29/16 SUBJECTIVE: Gaye Garcia who is a 86 year old female who was in the long term started feeling cough, congestion and one time vomiting and fever was 101. At that time the nurses at the long term sent the patient to the emergency room and was seen by Dr. English for the evaluation. ABG was done which showed the pH 7.47, pCO2 48, pO2 77, WBC 15,000, BUN and creatinine was normal. CT scan of the abdomen was negative. Serology was negative. Theophylline was normal. CT scan of the chest showed the right lower lobe pneumonia. In review of the patient being at the long term the patient was admitted with the health care facility acquired pneumonia. Vancomycin, Rocephin and Solu-Medrol was given and the DUO NEBS were given. Gradually the patient started feeling better and did not have any problem. She was up and about and walking. Hgb did drop some. The patient had recent history of GI bleed and was transferred to the [facility] the endoscopy and colonoscopy but Dr. Martinez saw the patient and suggested not to have any endoscopy and colonoscopy as the patient is old and the multiple medical problems and verbalized understand. They did the 2 units transfusion and ever since she has been fine. As of now hgb is stable. No aggressive management was done for that. As patient was doing fine and did not have any problem the patient is being discharged home today. REVIEW OF SYSTEMS: CONSTITUTIONAL: No fever, no chills. HEENT: Normal. ENDOCRINE: No weight gain, no weight loss. CVS: No angina symptoms. No CHF symptoms. No palpitations. No atypical chest pain for CAD. No shortness of breath. No PND, no orthopnea. RESPIRATORY: No cough, no hemoptysis. GI: No nausea, no vomiting. No abdominal pain. : No hematuria. No polyuria. MUSCULOSKELETAL:. No joint swelling. PSYCHIATRIC: Not anxious. No depression. No suicidal thoughts. No homicidal thoughts. SKIN: Intact. No rash. PHYSICAL EXAMINATION: V/S: Blood pressure 112/45, respiratory rate 24, heart rate 96, saturation 96 on 2 liters. GENERAL: Cachetic lady sitting in the bed and not in any distress. HEENT: Normocephalic, atraumatic. Ears, eyes, nose and throat normal. NECK: Supple. No JVD, no carotid bruit. No lymphadenopathy. LUNGS: Decreased and basilar crackles right more than left. No rales or rhonchi. HEART: S1, S2 normal. No S3. No murmur, gallop or regurgitation. ABDOMEN: Soft, nontender. Bowel sounds active. No rigidity. No rebound or guarding. No CVA tenderness. EXTREMITIES: No clubbing, cyanosis or pedal edema. MUSCULOSKELETAL: No joint swelling. NEUROLOGIC: Awake, alert, oriented times three. No focal deficit. LYMPHATIC: No lymph nodes palpable. SKIN: Intact. ASSESSMENT: 1. COPD Exacerbation secondary to the pneumonia 2. Right lower lobe pneumonia, health care facility acquired 3. COPD oxygen dependant 4. Anemia with recent GI bleed; seen and evaluated by GI doctor at [facility], did not have any endoscopic colonoscopy secondary to poor health condition. 5. Osteoporosis 6. Osteoarthritis 7. Weight loss, cachexia 8. Angina 9. Abdominal aortic aneurism with repair 10. History of colon cancer 11. Cataract surgery PLAN: 1. Discharge patient home. 2. Instructed to see Dr. Bermudez in 5-7 days. 3. [facility] for the nursing services. 4. Resume home medication per list. 5. Use oxygen at home continuously at 2 liters. TIME SPENT: More than 30 minutes MTDD
== END 2016-09-29 13:08 | disposition home or self-care (01) | DRG 194 ==
LOC: ED 04:31 → MEDSURG B 06:36
PROVIDERS: ADMIT Emergency Medicine; ATTEND Emergency Medicine
DX: J18.9 Pneumonia, unspecified organism (principal); J44.1 Chronic obstructive pulmonary disease with (acute) exacerbation; D62 Acute posthemorrhagic anemia; R64 Cachexia; Y95 Nosocomial condition; I10 Essential (primary) hypertension; I25.119 Atherosclerotic heart disease of native coronary artery with unspecified angina pectoris; M81.0 Age-related osteoporosis without current pathological fracture; M19.90 Unspecified osteoarthritis, unspecified site; R11.2 Nausea with vomiting, unspecified; Z95.5 Presence of coronary angioplasty implant and graft; Z79.899 Other long term (current) drug therapy; Z99.81 Dependence on supplemental oxygen; Z87.81 Personal history of (healed) traumatic fracture
CPT/HCPCS: 36415; 80053; 80198; 81001; 82150; 82272; 82550; 82803; 83690; 84484; 85025; 87040; 87081; 87651; 87804; 87880; 93005; 93010; 94640; 96365; 97802; 99284

== ENCOUNTER 2017-01-12 10:43 | Outpatient (CLI) ==
[2017-01-12 11:50] LABS: CALCIUM 9.1 mg/dL (8.2-10.2); MAGNESIUM 1.7 mg/dL (1.7-2.2); PHOSPHORUS 3.6 mg/dL (2.8-4.1)
== END 2017-01-12 10:44 | disposition home or self-care (01) ==
LOC: LAB 10:43
PROVIDERS: ATTEND Nurse Practitioner Family
DX: E55.9 Vitamin D deficiency, unspecified (principal); M81.0 Age-related osteoporosis without current pathological fracture
CPT/HCPCS: 36415; 82306; 82310; 83735; 84100

== ENCOUNTER 2017-01-17 15:24 | Emergency (ER) ==
[2017-01-17 16:16] VITALS: BMI 17.9
[2017-01-17] MEDS ORDERED: ZOFRAN 4 MG/2 ML IVP STA (16:18)
[2017-01-17] MEDS ORDERED: MORPHINE 2 MG/ML SYRINGE IVP STA (16:19)
[2017-01-17] MEDS ORDERED: MORPHINE 2 MG/ML SYRINGE ONE (16:21)
[2017-01-17] MEDS ORDERED: MORPHINE 2 MG/ML SYRINGE IM STA (16:24)
[2017-01-17] MEDS ORDERED: ZOFRAN 4 MG/2 ML IM STA (16:25)
[2017-01-17 16:34] VITALS: BP 135/77; TEMP 98.6
--- NOTE | 2017-01-17 16:40 | ED.PDOC ---
General ED Provider: Dr. CARO PALOMO JR Chief Complaint: Fall Stated Complaint: FELL DOWN AT HOME COMING OUR HER BACK DOOR. FELL ON HER LEFT RIB AREA. C/O LEFT RIB PAIN[End]BACK SHOULDER RIBS 98.6 81 22 94% 135/77 06/14 Time Seen by Physician: 16:00 Mode of Arrival: Walk-In Information Source: Patient, Family Exam Limitations: No limitations Primary Care Provider: KELI GUPTA Nursing and Triage Documentation Reviewed and Agree: No Review of Systems - Review Of Systems Constitutional: Reports: Weakness Eyes: Reports: No symptoms Ears, Nose, Mouth, Throat: Reports: No symptoms Respiratory: Reports: Short of air Cardiac: Reports: Chest pain (left sided tenderness) GI: Reports: No symptoms : Reports: No symptoms Musculoskeletal: Reports: Other Skin: Reports: No symptoms Neurological: Reports: No symptoms Endocrine: Reports: No symptoms Hematologic/Lymphatic: Reports: No symptoms All Other Systems: Other Past Medical History - Past Medical History Endocrine: Reports: None Cardiovascular: Reports: MD Respiratory: Reports: COPD, Asthma Hematological: Reports: Anemia Gastrointestinal: Reports: None Genitourinary: Reports: None Neuro/Psych: Reports: None Musculoskeletal: Reports: Arthritis, Joint Pain, Other (LEFT THIGH PAIN- RECENT FEMUR FRACTURE-IN [facility] IN [place] FOR REHAB) Cancer: Reports: None Last Menstrual Period: 1973 Other Pertinent Past Medical History: LIVES ALONE EATS POORLY PER FAMILY- ATE BETTER WHEN MEALS PROVIDED AT [facility] - Surgical History General Surgical History: Reports: Hysterectomy, Cholecystectomy - Family History Family History: Reports: Unknown - Social History Smoking Status: Former smoker Hx Substance Use: No Alcohol Screening: None - Immunizations Tetanus Shot up to Date: Yes Physical Exam - Physical Exam Appearance: Thin, Cachectic Ill-appearing: Moderate Pain Distress: Moderate Eyes: SARAH Neck: Supple Respiratory: Breath sounds clear, Breath sounds equal (LEFT SIDED CHEST WALL PAIN) Cardiovascular: RRR GI/: Soft, Bowel sounds normal Musculoskeletal: No edema, No calf tenderness Skin: Warm, Dry Neurological: Sensation intact, Motor intact, Cranial nerves intact, Alert, Oriented Psychiatric: Anxious Critical Care Note - Critical Care Note Total Time (mins): 0 Course - Course Orders, Labs, Meds: Orders Category Date Time Status ED IV/MEDIPORT/POWERPORT .ONCE EMERGENCY 01/17/17 16:18 Inactive Morphine Sulfate [Morphine 2 mg/ml Syringe] MEDS 01/17/17 16:21 Discontinued 2 mg .ROUTE .STK-MED ONE Morphine Sulfate [Morphine 2 mg/ml Syringe] MEDS 01/17/17 16:24 Discontinued 2 mg IM ONCE STA Ondansetron HCl/Pf [Zofran 4 mg/2 ml] MEDS 01/17/17 16:25 Discontinued 4 mg IM ONCE STA CHEST, 2 VIEWS PA & LAT Stat RADS 01/17/17 16:34 Completed RIBS, UNILATERAL LEFT Stat RADS 01/17/17 16:34 Completed Medications Discontinued Medications Generic Name Dose Route Start Last Admin Trade Name Freq PRN Reason Stop Dose Admin Morphine Sulfate 2 mg 01/17/17 16:24 01/17/17 16:31 Morphine 2 Mg/Ml Syringe IM 01/17/17 16:25 2 mg ONCE STA Administration Ondansetron HCl 4 mg 01/17/17 16:25 01/17/17 16:30 Zofran 4 Mg/2 Ml IM 01/17/17 16:26 4 mg ONCE STA Administration Vital Signs: Temp Pulse Resp BP Pulse Ox 01/17/17 15:24 98.6 F 81 22 135/77 94 L Departure - Departure Time of Disposition: 17:18 Disposition: HOME SELF-CARE Discharge Problem: Falls Contusion of rib on left side Qualifiers: Encounter type: initial encounter Qualifier Code: (S20.212A) Contusion of left front wall of thorax, initial encounter Instructions: Rib Contusion (ED) Condition: Good Pt referred to PMD for follow-up: Yes Additional Instructions: deep cough twice a day Norton for pain no fracture- recheck one week if not improved follow PMD if worse follow up PMD one week recheck Prescriptions: Hydrocodone Bit/Acetaminophen [Norton 5-325] 1 - 2 tab PO Q6HR PRN #12 tablet PRN Reason: pain Allergies/Adverse Reactions: Allergies clindamycin Adverse Reaction (Unknown, Unverified 11/11/16 12:15) diarrhea Penicillins Adverse Reaction (Verified 08/30/16 08:21) Home Medications: Ambulatory Orders Gabapentin 100 mg PO BID 03/22/13 Hydroxyzine HCl [Atarax] 25 mg PO BID PRN 03/22/13 Simvastatin [Zocor] 40 mg PO BEDTIME 03/22/13 Theophylline Anhydrous [Theophylline] 300 mg PO BEDTIME 03/22/13 Vitamin E 400 unit PO DAILY 03/22/13 Furosemide [Lasix Tab] 1 tab PO DAILY 07/03/13 Alprazolam 0.25 mg PO TID 08/29/15 Escitalopram Oxalate [Lexapro] 10 mg PO DAILY 30 Days 09/08/15 Acetaminophen [Tylenol] 500 mg PO Q12H 08/30/16 Amlodipine Besylate 5 mg PO DAILY 08/30/16 Beta-Carotene(A) W-C & E/Min [Vision Vitamins] 1 each PO BID 08/30/16 Budesonide/Formoterol Fumarate [Symbicort 160-4.5 Mcg Inhaler] 1 puff IH BID PRN 08/30/16 Calcium Carbonate/Vitamin D3 [Calcium 600 + Vit D Tablet] 2 each PO DAILY Cyanocobalamin (Vitamin B-12) [B-12] 500 mcg PO DIRECTED 08/30/16 Polyethylene Glycol 3350 [Miralax] 17 gm PO ONCE PRN 08/30/16 Potassium Chloride [K-Dur] 20 meq PO DAILY 08/30/16 Cholecalciferol (Vitamin D3) [Vitamin D] 1,000 mg PO DAILY 09/27/16 Ferrous Sulfate 325 mg PO DAILY 09/27/16 Hydrocodone Bit/Acetaminophen [Norton 5-325] 5 - 325 mg PO DAILY 09/27/16 Ipratropium/Albuterol Sulfate [Iprat-Albut 0.5-3(2.5) mg/3 ml] 0.5 - 2.5 inh IH QID 09/27/16 Pantoprazole Sodium [Protonix] 40 mg PO DAILY 09/27/16 Tizanidine HCl 4 mg PO DAILY 09/27/16 Cephalexin [Keflex] 500 mg PO Q12HR #10 capsule 09/29/16 Aspirin [Aspir 81] 81 mg PO DAILY 11/11/16 Calcium Carbonate/Vitamin D3 [Calcium 500-Vit D3 600 Tablet] 1 each PO BID 11/11 Cyanocobalamin (Vitamin B-12) [Vitamin B-12] 500 mcg PO TWO TIMES PER WEEK 11/11 Escitalopram Oxalate [Lexapro] 10 mg PO DAILY 11/11/16 Ferrous Gluconate 324 mg PO DAILY 11/11/16 Furosemide 20 mg PO DAILY 11/11/16 Gabapentin 100 mg PO BID 11/11/16 Hydrocodone/Acetaminophen [Norton 5-325 Tablet] 1 each PO TID 11/11/16 Hydrocodone/Acetaminophen [Norton 5-325 Tablet] 1 each PO TID 11/11/16 Hydroxyzine HCl 25 mg PO BID 11/11/16 Ipratropium/Albuterol Sulfate [Iprat-Albut 0.5-3(2.5) Mg/3 Ml] 3 ml IH QID 11/11 Pantoprazole Sodium 40 mg PO DAILY 11/11/16 Potassium Chloride 20 meq PO DAILY 11/11/16 Simvastatin [Zocor] 40 mg PO DAILY 11/11/16 Theophylline Anhydrous 300 mg PO BEDTIME #1 11/11/16 Tizanidine HCl 4 mg PO BID 11/11/16 Vitamin E Mixed [Vitamin E] 400 unit PO DAILY 11/11/16 Hydrocodone Bit/Acetaminophen [Norton 5-325] 1 - 2 tab PO Q6HR PRN #12 tablet
--- NOTE | 2017-01-17 16:53 | DI ---
EXAM: Chest two view, frontal and lateral views. HISTORY: Initial presentation for left lower lateral neck pain following a fall. COMPARISON: Chest CT 09/27/2016. FINDINGS: Heart is enlarged. Atherosclerotic calcifications present. Lungs are hyperexpanded but clear without pleural effusion or pneumothorax. Mild compression deformity of a lower thoracic vert ebral body noted. No left rib fracture seen. Abdominal aortic endovascular stent graft is present.. IMPRESSION: No acute cardiopulmonary process.
--- NOTE | 2017-01-17 16:54 | DI ---
EXAM: Radiographs, left rib HISTORY: Initial presentation for left lower lateral rib pain following a fall. COMPARISON: Chest CT 09/27/2016. TECHNIQUE: Two views. FINDINGS/IMPRESSION: No displaced left rib fracture identified. No left pleural effusion or pneumothorax identified.
== END 2017-01-17 17:53 | disposition home or self-care (01) ==
LOC: ED 15:24
DX: S20.212A Contusion of left front wall of thorax, initial encounter (principal); R06.02 Shortness of breath; R07.9 Chest pain, unspecified; W19.XXXA Unspecified fall, initial encounter; Y92.008 Other place in unspecified non-institutional (private) residence as the place of occurrence of the external cause; Z79.899 Other long term (current) drug therapy
CPT/HCPCS: 96372; 99283

== ENCOUNTER 2017-06-13 11:08 | Inpatient (IN) | payer OTHER ==
[2017-06-13] MEDS ORDERED: ATROPINE SULFATE PFS IVP PRN (11:44)
[2017-06-13] MEDS ORDERED: VISTARIL INJ IM PRN (11:44)
[2017-06-13] MEDS ORDERED: NITROSTAT SL PRN (11:44)
[2017-06-13] MEDS ORDERED: MORPHINE 4 MG/ML VIAL IVP PRN (11:44)
[2017-06-13] MEDS ORDERED: TYLENOL PO PRN ×2 (11:44→16:42)
[2017-06-13] MEDS ORDERED: ZITHROMAX 250 MG in SODIUM CHLORIDE 250 ML IV SCH (12:00)
[2017-06-13 12:06] VITALS: BMI 17.0
[2017-06-13 12:06] LABS: BASOPHILS % (AUTO) 0.5 % (0.0-3.0); EOSINOPHILS # (AUTO) 0.1 K/ul (0.0-0.7); EOSINOPHILS % (AUTO) 1.9 % (0.0-7.0); HEMATOCRIT 39.1 % (37.0-47.0); HEMOGLOBIN 12.9 g/dl (12.0-16.0); IMMATURE GRANULOCYTE % (AUTO) 0.3 % (0.0-5.0); LYMPHOCYTES % (AUTO) 13.2 (10.0-50.0); MEAN CORPUSCULAR HEMOGLOBIN 30.5 pg (27.0-31.0); MEAN CORPUSCULAR VOLUME 92.4 fl (81.0-99.0); MONOCYTES # (AUTO) 0.4 K/uL (0.4-2.0); MONOCYTES % (AUTO) 5.4 (0-10); NEUTROPHILS # (AUTO) 5.7 K/ul (2.0-6.9); NEUTROPHILS % (AUTO) 78.7; PLATELET COUNT 307 10^3/uL (140-440); RED BLOOD COUNT 4.23 10^6/ul (4.20-5.40); WHITE BLOOD COUNT 7.28 K/ul (4.6-10.2)
[2017-06-13 12:16] LABS: ABG PCO2 49.8 mmHg (35-45); ABG PH 7.484 (7.35-7.45)
[2017-06-13] MEDS: XOPENEX 1.25 MG NEB SCH ×3 (12:16→23:39)
[2017-06-13 12:17] LABS: ABG BASE EXCESS 14 (-2.0-2.0); ABG HCO3 37.4 (22.0-26.0); ABG TCO2 39 (22.0-28.0)
[2017-06-13 12:39] LABS: ALBUMIN 3.2 g/dL (3.4-5.0); ALBUMIN/GLOBULIN RATIO 0.82; ANION GAP 13.9; BILIRUBIN,TOTAL 0.34 mg/dL (0.00-1.20); CALCIUM 9.5 mg/dL (8.2-10.2); CREATININE 0.75 mg/dL (0.60-1.30); POTASSIUM 3.9 mmol/L (3.5-5.10); TOTAL PROTEIN 7.1 g/dL (5.8-8.1); TROPONIN I 0.011 ng/ml (0.0000-0.4000)
[2017-06-13] MEDS: DEXTROSE 5%-1/2NS IV SOLUTION 1,000 ML IV SCH (13:12)
[2017-06-13] MEDS: ROCEPHIN 1 GM in SODIUM CHLORIDE 50 ML IV SCH (13:17)
[2017-06-13] MEDS: SOLU-CORTEF 250 MG IVP SCH ×3 (13:30→21:44)
--- NOTE | 2017-06-13 14:06 | DI ---
EXAM: CHEST FRONTAL VIEW HISTORY: Cough. COMPARISON: 01/17/2017 FINDINGS: Upper limit normal heart size stable. Moderate atherosclerotic disease. Chronic-appearin g lung changes with hyperinflation. No acute infiltrates are seen. No vascular congestion. There is no consolidation, visible pleural fluid or pneumothorax. Bones reveal no acute fracture. IMPRESSION: No acute cardiopulmonary process.
[2017-06-13] MEDS ORDERED: NORCO 5-325 PO PRN (16:42)
[2017-06-13] MEDS ORDERED: NEURONTIN PO SCH (17:00)
[2017-06-13 17:24] LABS: ADD URINE MICROSCOPIC NO; BILIRUBIN,URINE Negative (NEGATIVE); KETONES,URINE Negative (NEGATIVE); LEUKOCYTE ESTERASE ,URINE Negative (NEGATIVE); NITRITE,URINE Negative (NEGATIVE); PH,URINE 7.5 (5-9); PROTEIN,URINE Negative (NEGATIVE); URINE, BLOOD Negative (NEGATIVE)
[2017-06-13] MEDS: PULMICORT 0.5 MG/2 ML NEB SCH (17:39)
[2017-06-13] MEDS ORDERED: NEURONTIN ONE (17:44)
[2017-06-13] MEDS: MIRALAX PO SCH (17:46)
[2017-06-13] MEDS: ZOCOR PO SCH (17:47)
[2017-06-13] MEDS: LEXAPRO PO SCH (17:47)
[2017-06-13] MEDS: CYANOCOBALAMIN 500 MG PO SCH (17:49)
[2017-06-13 20:36] LABS: CREATINE KINASE 33 U/L; MYOGLOBIN 51 ng/ml
[2017-06-13] MEDS ORDERED: THEOPHYLLINE ANHYDROUS 300 MG PO SCH ×22 (21:00)
[2017-06-13] MEDS: NORVASC PO SCH (21:44)
[2017-06-13] MEDS: PROAIR HFA IH SCH (21:44)
[2017-06-13] MEDS: THEO-DUR PO SCH (21:44)
[2017-06-13] MEDS: ATARAX PO SCH (21:44)
[2017-06-13] MEDS: SYMBICORT 160-4.5 MCG INHALER IH SCH (21:44)
[2017-06-13] MEDS: [UNRECOGNIZED DRUG - OTHER] PO SCH (21:46)
[2017-06-13] MEDS: ZANAFLEX PO SCH (21:49)
[2017-06-13] MEDS: XANAX PO SCH (21:49)
[2017-06-14 05:05] LABS: BASOPHILS % (AUTO) 0.1 % (0.0-3.0); HEMATOCRIT 36.6 % (37.0-47.0); IMMATURE GRANULOCYTE % (AUTO) 0.4 % (0.0-5.0); LYMPHOCYTES # (AUTO) 0.6 K/uL (0.60-3.4); LYMPHOCYTES % (AUTO) 8.1 (10.0-50.0); MEAN CORPUSCULAR HEMOGLOBIN 30.1 pg (27.0-31.0); MEAN CORPUSCULAR HGB CONC 32.8 (31.8-35.4); MEAN CORPUSCULAR VOLUME 91.7 fl (81.0-99.0); MONOCYTES # (AUTO) 0.1 K/uL (0.4-2.0); MONOCYTES % (AUTO) 1.4 (0-10); PLATELET COUNT 305 10^3/uL (140-440); RED BLOOD COUNT 3.99 10^6/ul (4.20-5.40); WHITE BLOOD COUNT 7.76 K/ul (4.6-10.2)
[2017-06-14] MEDS: XOPENEX 1.25 MG NEB SCH ×4 (05:12→23:35)
[2017-06-14] MEDS: PULMICORT 0.5 MG/2 ML NEB SCH ×2 (05:12→16:45)
[2017-06-14 05:29] LABS: ALANINE AMINOTRANSFERASE < 6 U/L (12-78); ALBUMIN/GLOBULIN RATIO 0.88; ALKALINE PHOSPHATASE 69 U/L (53-141); ANION GAP 16.6; ASPARTATE AMINO TRANSFERASE 8 U/L (15-37); BILIRUBIN,TOTAL 0.29 mg/dL (0.00-1.20); BLOOD UREA NITROGEN 17 mg/dL (7-18); CALCIUM 8.8 mg/dL (8.2-10.2); CARBON DIOXIDE 29 mmol/L (23-31); CHLORIDE 97 mmol/L (98-107); CREATININE 0.85 mg/dL (0.60-1.30); GLUCOSE 173 mg/dL (82-115); POTASSIUM 3.6 mmol/L (3.5-5.10); SODIUM 139 mmol/L (136-145); TOTAL PROTEIN 6.4 g/dL (5.8-8.1)
[2017-06-14] MEDS: PROTONIX PO SCH (05:38)
[2017-06-14] MEDS: LASIX TAB PO SCH (05:38)
[2017-06-14] MEDS: SOLU-CORTEF 250 MG IVP SCH ×3 (05:38→20:38)
[2017-06-14] MEDS ORDERED: [UNRECOGNIZED DRUG - OTHER] PO SCH (09:00)
[2017-06-14] MEDS ORDERED: NON-FORMULARY MEDICATION (Ferrous Gluconate [Ferrous Gluconate] 324 MG) PO SCH (09:00)
[2017-06-14] MEDS ORDERED: CALCIUM CARBONATE PO SCH (09:00)
[2017-06-14] MEDS ORDERED: VITAMIN D3 E PO SCH (09:00)
[2017-06-14] MEDS: NEURONTIN PO SCH ×2 (09:06→20:37)
[2017-06-14] MEDS: K-DUR PO SCH (09:07)
[2017-06-14] MEDS: CALCIUM 500 + VIT D 200 MG TABLET PO SCH (09:07)
[2017-06-14] MEDS: ATARAX PO SCH ×2 (09:07→20:37)
[2017-06-14] MEDS: ASPIRIN EC PO SCH (09:07)
[2017-06-14] MEDS: XANAX PO SCH ×3 (09:07→20:38)
[2017-06-14] MEDS: FERROUS SULFATE PO SCH (09:07)
[2017-06-14] MEDS: ZITHROMAX PO SCH (09:07)
[2017-06-14] MEDS: ROCEPHIN 1 GM in SODIUM CHLORIDE 50 ML IV SCH (09:07)
[2017-06-14] MEDS: SYMBICORT 160-4.5 MCG INHALER IH SCH ×2 (09:08→20:35)
[2017-06-14] MEDS: PROAIR HFA IH SCH ×2 (09:08→20:35)
[2017-06-14] MEDS: MIRALAX PO SCH (09:13)
[2017-06-14] MEDS: [UNRECOGNIZED DRUG - OTHER] PO SCH ×2 (09:45→20:39)
--- NOTE | 2017-06-14 10:43 | PCM.PROG ---
Attending Provider: ATTENDING PROVIDER: Dr. KELI GUPTA This patient is seen with Patito Rodriguez, Nurse Practitioner. DATE OF SERVICE: 06/14/17 SUBJECTIVE: This 87 year old WHITE/ F was hospitalized 06/13/17. The patient is alert, lying in bed. She slept well. Breathing is better. Shortness of breath improved today. REVIEW OF SYSTEMS: CONSTITUTIONAL: Weakness. No night sweats. No fever or chills. HEENT: Eyes: No visual changes. No eye pain. No eye discharge. ENT: No runny nose. No epistaxis. No sinus pain. No odynophagia. No congestion. RESPIRATORY: Cough. No congestion. No hemoptysis. No shortness of breath. CARDIOVASCULAR: No angina symptoms. No CHF symptoms. No atypical chest pain for CAD. No palpitations. No orthopnea.. GASTROINTESTINAL: No abdominal pain. No nausea or vomiting. No diarrhea or constipation. No hematemesis. No hematochezia. GENITOURINARY: No urgency. No frequency. No dysuria. No hematuria. No obstructive symptoms. No discharge. No pain. No significant abnormal bleeding. MUSCULOSKELETAL: No musculoskeletal pain; no joint swelling. NEUROLOGICAL: Awake, alert, oriented to time, place and person. No headache. No neck pain. No syncope. No seizures. No dizziness. PSYCHIATRIC: Not anxious. No depression. No suicidal thoughts. No homicidal thoughts. SKIN: No rash. No lesions. No wounds. ENDOCRINE: No unexplained weight loss. No weight gain. HEMATOLOGIC/LYMPHATIC: No anemia. No purpura. No petechiae. No prolonged or excessive bleeding. No palpable lymph nodes. PHYSICAL EXAMINATION: GENERAL: The patient is awake, alert and oriented, lying in bed in no distress. VITAL SIGNS: Temperature 97.6 F, Pulse 77, Respiratory Rate 18, BP 113/54, Pulse Ox 98% HEENT: Head normocephalic, atraumatic. Eyes: Extraocular muscles are intact. Pupils are equal, round and reactive to light and accommodation. Ears: No lesions. Nose appeared normal. Throat: No exudate or erythema. NECK: Supple. No JVD, no carotid bruit. No lymphadenopathy or thyromegaly. LUNGS: Diminished breath sounds bilaterally. Bilateral rhonchi. Percussion note normal. Chest symmetrical. HEART: S1, S2, no S3. No murmurs. No cyanosis or clubbing. No ascites. Pulses: Dorsalis pedis and posterior tibial pulses +1 to +2 both sides. ABDOMEN: Soft. Non-tender. Bowel sounds active. No CVA tenderness. No mass felt. EXTREMITIES: No edema. Full range of motion of all extremities, equal. NEUROLOGIC: No focal deficit. Cranial nerves II through XII are grossly intact. No headache, no double vision or headache. SKIN: Not dry. Intact. Turgor-normal. LYMPHATIC: No palpable lymph nodes/no lymphedema. MUSCULOSKELETAL: Normal joints with no swelling. Muscle tone is normal. LAB REVIEW: 06/14/17 05:04 06/14/17 05:04 06/14/17 05:04: Sodium 139, Potassium 3.6, Chloride 97 L, Carbon Dioxide 29 D, Anion Gap 16.6, BUN 17, Creatinine 0.85, Estimated GFR (MDRD) 63.00, BUN/ Creatinine Ratio 20.00, Glucose 173 H D, Calcium 8.8, Total Bilirubin 0.29, AST 8 L, ALT < 6 L, Alkaline Phosphatase 69, Total Protein 6.4, Albumin 3.0 L, Globulin 3.4, Albumin/Globulin Ratio 0.88 06/14/17 05:04: WBC 7.76, RBC 3.99 L, Hgb 12.0, Hct 36.6 L, MCV 91.7, MCH 30.1, MCHC 32.8, RDW Coeff of Sherri 13.2, Plt Count 305, Immature Gran % (Auto) 0.4, Neut % (Auto) 90.0, Lymph % (Auto) 8.1 L, [place] % (Auto) 1.4, Eos % (Auto) 0.0, Baso % (Auto) 0.1, Immature Gran # (Auto) 0.0, Neut # 7.0 H, Lymph # 0.6, [place] # 0.1 L, Eos # 0.0, Baso # 0.0 06/13/17 20:00: Total Creatine Kinase 33, Myoglobin 51, Troponin I < 0.0100 06/13/17 17:10: Urine Color Yellow, Urine Clarity Clear, Urine pH 7.5, Ur Specific Davin 1.015, Urine Protein Negative, Urine Glucose (UA) Negative, Urine Ketones Negative, Urine Blood Negative, Urine Nitrite Negative, Urine Bilirubin Negative, Urine Urobilinogen 0.2, Ur Leukocyte Esterase Negative 06/13/17 11:55: B-Natriuretic Peptide 82 06/13/17 11:55: Sodium 142, Potassium 3.9, Chloride 95 L, Carbon Dioxide 37 H, Anion Gap 13.9, BUN 15, Creatinine 0.75, Estimated GFR (MDRD) 73.00, BUN/ Creatinine Ratio 20.00, Glucose 118 H, Calcium 9.5, Total Bilirubin 0.34, AST 11 L, ALT 7 L, Alkaline Phosphatase 69, Total Creatine Kinase 36, Myoglobin 53, Troponin I 0.0110, Total Protein 7.1, Albumin 3.2 L, Globulin 3.9, Albumin/ Globulin Ratio 0.82 06/13/17 11:55: WBC 7.28, RBC 4.23, Hgb 12.9, Hct 39.1, MCV 92.4, MCH 30.5, MCHC 33.0, RDW Coeff of Sherri 13.2, Plt Count 307, Immature Gran % (Auto) 0.3, Neut % (Auto) 78.7, Lymph % (Auto) 13.2, [place] % (Auto) 5.4, Eos % (Auto) 1.9, Baso % (Auto) 0.5, Immature Gran # (Auto) 0.0, Neut # 5.7, Lymph # 1.0, [place] # 0.4, Eos # 0.1, Baso # 0.0 06/13/17 11:49: Puncture Site Rrad, O2 Saturation 89.0 L, ABG pH 7.484 H, ABG pCO2 49.8 H, ABG pO2 54.0 L*, ABG HCO3 37.4 H, ABG Total CO2 39 H, ABG Base Excess 14 H, Girma Test +, FiO2 % 21.0 ASSESSMENT: 1. Acute bronchitis 2. Shortness of breath, improved 3. COPD oxygen dependent PLAN: 1. Continue IV antibiotics and steroids Plan and coordination of the patient's care discussed in the presence of Mixed Crop And Livestock Farm Worker and nurse. CONDITION: Stable SCRIBED BY: ZHANNA RICHARD Technical Research Scientist scribed while in presence of service performed by Dr. Gupta/Patito Rodriguez APRN on 06/14/17 ([id number])
[2017-06-14] MEDS: DEXTROSE 5%-1/2NS IV SOLUTION 1,000 ML IV SCH (11:52)
[2017-06-14] MEDS: LEXAPRO PO SCH (16:57)
[2017-06-14] MEDS: ZOCOR PO SCH (16:57)
[2017-06-14] MEDS: NORVASC PO SCH (20:36)
[2017-06-14] MEDS: THEO-DUR PO SCH (20:37)
[2017-06-14] MEDS: ZANAFLEX PO SCH (20:37)
[2017-06-15] MEDS: SOLU-CORTEF 250 MG IVP SCH (04:31)
[2017-06-15] MEDS: PULMICORT 0.5 MG/2 ML NEB SCH ×2 (05:06→17:10)
[2017-06-15] MEDS: XOPENEX 1.25 MG NEB SCH ×4 (05:07→22:43)
[2017-06-15 05:29] LABS: BASOPHILS % (AUTO) 0.2 % (0.0-3.0); HEMATOCRIT 32.9 % (37.0-47.0); HEMOGLOBIN 10.8 g/dl (12.0-16.0); IMMATURE GRANULOCYTE % (AUTO) 0.5 % (0.0-5.0); LYMPHOCYTES # (AUTO) 0.9 K/uL (0.60-3.4); LYMPHOCYTES % (AUTO) 7.8 (10.0-50.0); MEAN CORPUSCULAR HEMOGLOBIN 30.1 pg (27.0-31.0); MEAN CORPUSCULAR HGB CONC 32.8 (31.8-35.4); MEAN CORPUSCULAR VOLUME 91.6 fl (81.0-99.0); MONOCYTES # (AUTO) 0.4 K/uL (0.4-2.0); MONOCYTES % (AUTO) 3.3 (0-10); NEUTROPHILS % (AUTO) 88.2; PLATELET COUNT 276 10^3/uL (140-440); RED BLOOD COUNT 3.59 10^6/ul (4.20-5.40); WHITE BLOOD COUNT 11.35 K/ul (4.6-10.2)
[2017-06-15] MEDS: LASIX TAB PO SCH (05:42)
[2017-06-15] MEDS: PROTONIX PO SCH (05:42)
[2017-06-15 05:48] LABS: ALANINE AMINOTRANSFERASE < 6 U/L (12-78); ALBUMIN 2.8 g/dL (3.4-5.0); ALBUMIN/GLOBULIN RATIO 0.97; ALKALINE PHOSPHATASE 57 U/L (53-141); ANION GAP 14.8; ASPARTATE AMINO TRANSFERASE 8 U/L (15-37); BILIRUBIN,TOTAL 0.23 mg/dL (0.00-1.20); BLOOD UREA NITROGEN 16 mg/dL (7-18); BUN/CREATININE RATIO 23.18; CALCIUM 8.3 mg/dL (8.2-10.2); CARBON DIOXIDE 28 mmol/L (23-31); CHLORIDE 103 mmol/L (98-107); CREATININE 0.69 mg/dL (0.60-1.30); GLUCOSE 130 mg/dL (82-115); POTASSIUM 3.8 mmol/L (3.5-5.10); SODIUM 142 mmol/L (136-145); TOTAL PROTEIN 5.7 g/dL (5.8-8.1)
[2017-06-15] MEDS: DEXTROSE 5%-1/2NS IV SOLUTION 1,000 ML IV SCH (06:33)
[2017-06-15] MEDS: PROAIR HFA IH SCH ×2 (08:52→20:48)
[2017-06-15] MEDS: SYMBICORT 160-4.5 MCG INHALER IH SCH ×2 (08:52→20:48)
[2017-06-15] MEDS: ROCEPHIN 1 GM in SODIUM CHLORIDE 50 ML IV SCH (08:52)
[2017-06-15] MEDS: ATARAX PO SCH ×2 (08:53→20:49)
[2017-06-15] MEDS: FERROUS SULFATE PO SCH (08:53)
[2017-06-15] MEDS: ASPIRIN EC PO SCH (08:53)
[2017-06-15] MEDS: MIRALAX PO SCH (08:53)
[2017-06-15] MEDS: K-DUR PO SCH (08:53)
[2017-06-15] MEDS: NEURONTIN PO SCH ×2 (08:53→20:48)
[2017-06-15] MEDS: CALCIUM 500 + VIT D 200 MG TABLET PO SCH (08:54)
[2017-06-15] MEDS: XANAX PO SCH ×3 (08:54→20:49)
[2017-06-15] MEDS: PREDNISONE PO SCH ×2 (08:54→17:00)
[2017-06-15] MEDS: [UNRECOGNIZED DRUG - OTHER] PO SCH ×2 (08:54→20:51)
[2017-06-15] MEDS: ZITHROMAX PO SCH (08:54)
--- NOTE | 2017-06-15 09:39 | PCM.PROG ---
Attending Provider: ATTENDING PROVIDER: Dr. KELI GUPTA DATE OF SERVICE: 06/15/17 SUBJECTIVE: This 87 year old WHITE/ F was hospitalized 06/13/17. The patient is hospitalized with acute respiratory failure and hypoxemia. Condition has improved. Oxygen saturation 98% on 2L She is feeling a lot better. No congested breath sounds at rest. REVIEW OF SYSTEMS: CONSTITUTIONAL: No night sweats. No fatigue, malaise, lethargy. No fever or chills. HEENT: Eyes: No visual changes. No eye pain. No eye discharge. ENT: No runny nose. No epistaxis. No sinus pain. No odynophagia. No congestion. RESPIRATORY: No cough, no congestion. No hemoptysis. No shortness of breath. CARDIOVASCULAR: No angina symptoms. No CHF symptoms. No atypical chest pain for CAD. No palpitations. No orthopnea.. GASTROINTESTINAL: No abdominal pain. No nausea or vomiting. No diarrhea or constipation. No hematemesis. No hematochezia. GENITOURINARY: No urgency. No frequency. No dysuria. No hematuria. No obstructive symptoms. No discharge. No pain. No significant abnormal bleeding. MUSCULOSKELETAL: No musculoskeletal pain; no joint swelling. NEUROLOGICAL: Awake, alert, oriented to time, place and person. No headache. No neck pain. No syncope. No seizures. No dizziness. PSYCHIATRIC: Not anxious. No depression. No suicidal thoughts. No homicidal thoughts. SKIN: No rash. No lesions. No wounds. ENDOCRINE: No unexplained weight loss. No weight gain. HEMATOLOGIC/LYMPHATIC: No anemia. No purpura. No petechiae. No prolonged or excessive bleeding. No palpable lymph nodes. PHYSICAL EXAMINATION: GENERAL: The patient is awake, alert and oriented, lying in bed in no distress. VITAL SIGNS: Temperature 98.0 F, Pulse 75, Respiratory Rate 21, BP 121/56, Pulse Ox 98% HEENT: Head normocephalic, atraumatic. Eyes: Extraocular muscles are intact. Pupils are equal, round and reactive to light and accommodation. Ears: No lesions. Nose appeared normal. Throat: No exudate or erythema. NECK: Supple. No JVD, no carotid bruit. No lymphadenopathy or thyromegaly. LUNGS: More air entry, no wheeze. The patient has harsh breath sounds. Percussion note normal. Chest symmetrical. HEART: S1, S2, no S3. No murmurs. No cyanosis or clubbing. No ascites. Pulses: Dorsalis pedis and posterior tibial pulses +1 to +2 both sides. ABDOMEN: Soft. Non-tender. Bowel sounds active. No CVA tenderness. No mass felt. EXTREMITIES: No pedal edema. Full range of motion of all extremities, equal. NEUROLOGIC: No focal deficit. Cranial nerves II through XII are grossly intact. No headache, no double vision or headache. SKIN: Not dry. Intact. Turgor-normal. LYMPHATIC: No palpable lymph nodes/no lymphedema. MUSCULOSKELETAL: Normal joints with no swelling. Muscle tone is normal. LAB REVIEW: 06/15/17 05:24 06/15/17 05:24 06/15/17 05:24: Sodium 142, Potassium 3.8, Chloride 103, Carbon Dioxide 28, Anion Gap 14.8, BUN 16, Creatinine 0.69, Estimated GFR (MDRD) 80.00, BUN/ Creatinine Ratio 23.18, Glucose 130 H, Calcium 8.3, Total Bilirubin 0.23, AST 8 L, ALT < 6 L, Alkaline Phosphatase 57, Total Protein 5.7 L, Albumin 2.8 L, Globulin 2.9, Albumin/Globulin Ratio 0.97 06/15/17 05:24: WBC 11.35 H, RBC 3.59 L, Hgb 10.8 L, Hct 32.9 L, MCV 91.6, MCH 30.1, MCHC 32.8, RDW Coeff of Sherri 13.5, Plt Count 276, Immature Gran % (Auto) 0.5, Neut % (Auto) 88.2, Lymph % (Auto) 7.8 L, [place] % (Auto) 3.3, Eos % (Auto) 0.0, Baso % (Auto) 0.2, Immature Gran # (Auto) 0.1, Neut # 10.0 H, Lymph # 0.9, [place] # 0.4, Eos # 0.0, Baso # 0.0 ASSESSMENT: 1. Respiratory failure under control with chronic lung disease. 2. COPD. 3. Anemia. PLAN: 1. Continue antibiotics. 2. D/C IV fluids. 3. Up and about. 4. Encouraged to eat. 5. D/C Solu-Cortef 6. Prednisone 10 mg b.i.d. Plan and coordination of the patient's care discussed in the presence of Packing Machine Inspector and nurse. CONDITION: Stable SCRIBED BY: ZHANNA RICHARD Livestock Ranch Hand scribed while in presence of service performed by Dr. KELI GUPTA on 06/15/17 ([id number])
--- NOTE | 2017-06-15 10:51 | PN ---
DATE OF SERVICE: 06/14/17 SUBJECTIVE: 87 year old white female hospitalized with acute pneumonia/bronchitis and respiratory failure. The patient's condition has improved and she felt a lot better. Her appetite has improved. No congestion anymore like what she had at rest. No fever and no chills. PHYSICAL EXAMINATION: HEENT: Head normocephalic, atraumatic. Eyes: Extraocular muscles are intact. Pupils are equal, round and reactive to light and accommodation. Ears: No lesions. Nose appeared normal. Throat: No exudate or erythema. NECK: Supple. No JVD, no carotid bruit. No lymphadenopathy or thyromegaly. LUNGS: Decreased breaths with mild wheeze. Percussion note normal. Chest symmetrical. HEART: S1, S2, no S3. No murmurs. No cyanosis or clubbing. No ascites. Pulses: Dorsalis pedis and posterior tibial pulses +1 to +2 both sides. ABDOMEN: Soft. Nontender. Bowel sounds active. No CVA tenderness. No mass felt. EXTREMITIES: No edema. Full range of motion of all extremities, equal. NEUROLOGIC: No focal deficit. Cranial nerves II through XII are grossly intact. No headache, no double vision or headache. SKIN: Not dry. Intact. Turgor - normal. LYMPHATIC: No palpable lymph nodes/no lymphedema. MUSCULOSKELETAL: Normal joints with no swelling. Muscle tone is normal. ASSESSMENT: 1. Pneumonitis/bronchitis 2. Respiratory failure, seems to be resolving PLAN: 1. Continue steroids 2. Antibiotics 3. NEBS treatment 4. IV fluids CONDITION: Stable The patient was seen and examined with Nurse Practitioner and Legal Operations Manager. TIME SPENT: More than 30 minutes. Plan and coordination of the patient's care discussed in the presence of nurse. NAEL
--- NOTE | 2017-06-15 13:03 | HP ---
DATE OF SERVICE: 06/13/17 HISTORY OF PRESENT ILLNESS: This is an 87-year-old female who presents being congested times three weeks, appetite not good. She was on Keflex off and on, steroid shots and nebs and worsening to some extent. Fatigue, shortness of breath with exertion. No PND, no orthopnea. Pleuritic pain right-sided. Coughing up yellowish phlegm. PAST MEDICAL HISTORY: Left femur fracture AAA DJD CAD with stent Hypertension Cancer of colon Neuropathy Dementia Compound fracture spine Anemia with history of GI bleed Anxiety Emphysema Atrial fibrillation MENSTRUAL HISTORY: Hysterectomy. PAST SURGICAL HISTORY: Colon resection 2004 Hernia repair Hysterectomy Gallbladder Heart cath - Dr. Brunner 04/17 REVIEW OF SYSTEMS: CONSTITUTIONAL: Positive for fever and fatigue. HEENT: No sinus drainage, no sore throat. RESPIRATORY: Cough, no hemoptysis. CARDIOVASCULAR: Atypical chest pain for coronary artery disease. No angina, CHF symptoms, or palpitations. Shortness of breath with minimal exertion. GASTROINTESTINAL: No melena or abdominal pain. No GERD. GENITOURINARY: No hematuria, no polyuria. POULTRY DRESSING WORKER: Dizziness. No blackout, no headache, no double vision. MUSCULOSKELETAL: Osteoarthritis pain. ENDOCRINE: No weight loss, no weight gain. SKIN: Dry, no rash. PSYCHIATRIC: Anxious. No depression, no suicidal thoughts, no homicidal thoughts. SOCIAL HISTORY: ; four children, one . Nonsmoker. No alcohol use. FAMILY HISTORY: Father with CVA. Mother with colon cancer. MEDICATIONS: (HOME) Lasix 20 mg one tablet p.o. two times per day Hydrocodone/Acetaminophen 5-325 mg one p.o. three times per day as needed for pain Hydroxyzine 25 mg p.o. two times per day Theophylline 300 mg one tablet p.o. one time per day Ferrous Sulfate 324 mg (65 mg iron) tablet delayed releaase one tablet p.o. two times per day one a day Neurontin 100 mg take two capsules p.o. one time per day Potassium Chloride 20 mEq one tablet p.o. one time per day Protonix 40 mg take one tablet p.o. once daily Zanaflex 4 mg one tablet p.o. every 6 to 8 hours as needed not to exceed 3 doses in 24 hours one at night Zocor 40 mg one p.o. one daily in the evening Norvasc 5 mg p.o. one time per day at h.s. Alprazolam 0.25 mg one p.o. three times per day Symbicort 160-4.5 mcg/actuation HFA aerosol inhaler two puffs by inhalation route two times per day in morning and evening Lexapro 10 mg one tablet p.o. once daily Duoneb 0.5 mg - 3 mg four times per day and as needed up to 6 doses per day p.r.n. ProAir HFA 90 mcg/actuation HFA aerosol inhaler two puffs every 12 hours Tylenol 500 mg daily p.r.n. ALLERGIES: BROVANA, PENICILLIN PHYSICAL EXAMINATION: V/S: Pulse 74, BP 104/52, temperature 98, 02 sat 94%, weight 88.6, BMI 17.3, height 5'0". GENERAL APPEARANCE: Oriented times three. Skin is dry. HEENT: Normal. NECK: No JVP, no bruits. RESPIRATORY: Lungs have decreased breath sounds with dry creps. CARDIOVASCULAR: S1, S2, no S3, no murmurs. No cyanosis, clubbing. No ascites. GI/ABDOMEN: No tenderness. Bowel sounds are active. EXTREMITIES: No edema, pulses +1, equal. POULTRY DRESSING WORKER: Deep tendon reflexes, sensory, motor and gait all normal. RECTAL/PELVIC: Patient refused repeat colonoscopy 2006. Pelvic: Hysterectomy , mammogram patient refused. Bone density refused. LABS: ABGs FI02 21, ABG pH 7.484, pc02 49.8, p02 54, base excess of 14, bicarb 37.4, TC02 39, 02 sat 89. Sodium 142, potassium 3.9, chloride 95, c02 37, BUN 15, creatinine 0.75, glucose 118, total bili 0.34, AST 11, ALT 7, total protein 7.1 , albumin 3.2, globulin 3.9, alkaline phosphatase 69, BNP 82, white count 7.28, hemoglobin 12.9, hematocrit 39.1, platelets 307. Chest x-ay reveals no acute pulmonary process. ASSESSMENT: 1. ACUTE BRONCHITIS/PNEUMONITIS 2. SEVERE COPD/CHRONIC RESPIRATORY FAILURE 3. DEPRESSION 4. COPD 02 DR[address] AC 5. HISTORY OF FEMUR FRACTURE-FALL 6. DJD SPINE 7. ABDOMINAL AORTIC ANEURYSM - DR. ADAN 8. COMPOUND FRACTURE SPINE 9. ANEMIA WITH GI BLEED 10. HYPERTENSION 11. CANCER OF THE COLON 12. NEUROPATHY PLAN: 1. Admit regular 2. Regular diet 3. Telemetry orders 4. Sputum for C & S 5. Solu-Cortef 125 mg IV now and 8 hourly 6. Rocephin 1 gm 24 hourly and today 7. Zithromax 250 mg IV times five days 8. Nebs Xopenex q.6hourly 9. Pulmicort b.i.d. 10. Oxygen 2L/cannula/min 11. ABG/BNP today 12. Daily CBC/CMP a.m. 13. Continue home medications 14. D/C Keflex 15. Ceftriaxone 1 gm 50 mL @ 75 mls/hr IV daily ANKITA TIME SPENT: More than 70 minutes. MTDD
[2017-06-15] MEDS: LEXAPRO PO SCH (16:59)
[2017-06-15] MEDS: ZOCOR PO SCH (16:59)
[2017-06-15] MEDS: CYANOCOBALAMIN 500 MG PO SCH (17:06)
[2017-06-15] MEDS: NORVASC PO SCH (20:49)
[2017-06-15] MEDS: THEO-DUR PO SCH (20:49)
[2017-06-15] MEDS: ZANAFLEX PO SCH (20:50)
[2017-06-16 04:56] LABS: BASOPHILS % (AUTO) 0.1 % (0.0-3.0); HEMATOCRIT 32.2 % (37.0-47.0); HEMOGLOBIN 10.6 g/dl (12.0-16.0); IMMATURE GRANULOCYTE % (AUTO) 0.6 % (0.0-5.0); LYMPHOCYTES # (AUTO) 1.3 K/uL (0.60-3.4); LYMPHOCYTES % (AUTO) 12.7 (10.0-50.0); MEAN CORPUSCULAR HEMOGLOBIN 30.3 pg (27.0-31.0); MEAN CORPUSCULAR HGB CONC 32.9 (31.8-35.4); MONOCYTES # (AUTO) 0.6 K/uL (0.4-2.0); MONOCYTES % (AUTO) 5.8 (0-10); NEUTROPHILS # (AUTO) 8.2 K/ul (2.0-6.9); NEUTROPHILS % (AUTO) 80.8; PLATELET COUNT 274 10^3/uL (140-440)
[2017-06-16] MEDS: XOPENEX 1.25 MG NEB SCH (04:58)
[2017-06-16] MEDS: PULMICORT 0.5 MG/2 ML NEB SCH (04:58)
[2017-06-16 05:20] LABS: ALBUMIN 2.8 g/dL (3.4-5.0); ALBUMIN/GLOBULIN RATIO 0.97; ANION GAP 12.7; BILIRUBIN,TOTAL 0.23 mg/dL (0.00-1.20); BUN/CREATININE RATIO 27.86; CALCIUM 8.1 mg/dL (8.2-10.2); CREATININE 0.61 mg/dL (0.60-1.30); POTASSIUM 3.7 mmol/L (3.5-5.10); TOTAL PROTEIN 5.7 g/dL (5.8-8.1)
[2017-06-16] MEDS: LASIX TAB PO SCH (05:36)
[2017-06-16] MEDS: PROTONIX PO SCH (05:36)
[2017-06-16] MEDS: ROCEPHIN 1 GM in SODIUM CHLORIDE 50 ML IV SCH (08:39)
[2017-06-16] MEDS: PROAIR HFA IH SCH (08:39)
[2017-06-16] MEDS: SYMBICORT 160-4.5 MCG INHALER IH SCH (08:39)
[2017-06-16] MEDS: ASPIRIN EC PO SCH (08:40)
[2017-06-16] MEDS: NEURONTIN PO SCH (08:40)
[2017-06-16] MEDS: CALCIUM 500 + VIT D 200 MG TABLET PO SCH (08:40)
[2017-06-16] MEDS: PREDNISONE PO SCH (08:40)
[2017-06-16] MEDS: ATARAX PO SCH (08:40)
[2017-06-16] MEDS: XANAX PO SCH (08:40)
[2017-06-16] MEDS: K-DUR PO SCH (08:40)
[2017-06-16] MEDS: FERROUS SULFATE PO SCH (08:41)
[2017-06-16] MEDS: [UNRECOGNIZED DRUG - OTHER] PO SCH (08:41)
[2017-06-16] MEDS: MIRALAX PO SCH (08:41)
[2017-06-16 09:53] VITALS: BP 131/62; TEMP 98.4
--- NOTE | 2017-06-16 11:34 | PCM.PROG ---
Attending Provider: ATTENDING PROVIDER: Dr. KELI GUPTA This patient is seen with Patito Rodriguez, Nurse Practitioner. DATE OF SERVICE: 06/16/17 SUBJECTIVE: This 87 year old WHITE/ F was hospitalized 06/13/17. The patient is lying in bed alert. She states she feels better ready to go home She has been eating well and has been up and about. REVIEW OF SYSTEMS: CONSTITUTIONAL: No night sweats. No fatigue, malaise, lethargy. No fever or chills. HEENT: Eyes: No visual changes. No eye pain. No eye discharge. ENT: No runny nose. No epistaxis. No sinus pain. No odynophagia. No congestion. RESPIRATORY: Cough. No congestion. No hemoptysis. No shortness of breath. CARDIOVASCULAR: No angina symptoms. No CHF symptoms. No atypical chest pain for CAD. No palpitations. No orthopnea.. GASTROINTESTINAL: No abdominal pain. No nausea or vomiting. No diarrhea or constipation. No hematemesis. No hematochezia. GENITOURINARY: No urgency. No frequency. No dysuria. No hematuria. No obstructive symptoms. No discharge. No pain. No significant abnormal bleeding. MUSCULOSKELETAL: No musculoskeletal pain; no joint swelling. NEUROLOGICAL: Awake, alert, oriented to time, place and person. No headache. No neck pain. No syncope. No seizures. No dizziness. PSYCHIATRIC: Not anxious. No depression. No suicidal thoughts. No homicidal thoughts. SKIN: No rash. No lesions. No wounds. ENDOCRINE: No unexplained weight loss. No weight gain. HEMATOLOGIC/LYMPHATIC: No anemia. No purpura. No petechiae. No prolonged or excessive bleeding. No palpable lymph nodes. PHYSICAL EXAMINATION: GENERAL: The patient is awake, alert and oriented, lying in bed in no distress. VITAL SIGNS: Temperature 97.5 F, Pulse 65, Respiratory Rate 17, BP 125/59, Pulse Ox 98% HEENT: Head normocephalic, atraumatic. Eyes: Extraocular muscles are intact. Pupils are equal, round and reactive to light and accommodation. Ears: No lesions. Nose appeared normal. Throat: No exudate or erythema. NECK: Supple. No JVD, no carotid bruit. No lymphadenopathy or thyromegaly. LUNGS: Diminished breath sounds bilaterally equal and clear to auscultation. Percussion note normal. Chest symmetrical. HEART: S1, S2, no S3. No murmurs. No cyanosis or clubbing. No ascites. Pulses: Dorsalis pedis and posterior tibial pulses +1 to +2 both sides. ABDOMEN: Soft. Non-tender. Bowel sounds active. No CVA tenderness. No mass felt. EXTREMITIES: No edema. Full range of motion of all extremities, equal. NEUROLOGIC: No focal deficit. Cranial nerves II through XII are grossly intact. No headache, no double vision or headache. SKIN: Not dry. Intact. Turgor-normal. LYMPHATIC: No palpable lymph nodes/no lymphedema. MUSCULOSKELETAL: Normal joints with no swelling. Muscle tone is normal. LAB REVIEW: 06/16/17 04:56 06/16/17 04:56 06/16/17 04:56: Sodium 141, Potassium 3.7, Chloride 102, Carbon Dioxide 30, Anion Gap 12.7, BUN 17, Creatinine 0.61, Estimated GFR (MDRD) 92.00, BUN/ Creatinine Ratio 27.86, Glucose 86, Calcium 8.1 L, Total Bilirubin 0.23, AST 17 , ALT 13, Alkaline Phosphatase 56, Total Protein 5.7 L, Albumin 2.8 L, Globulin 2.9, Albumin/Globulin Ratio 0.97 06/16/17 04:56: WBC 10.20, RBC 3.50 L, Hgb 10.6 L, Hct 32.2 L, MCV 92.0, MCH 30.3, MCHC 32.9, RDW Coeff of Sherri 14.0, Plt Count 274, Immature Gran % (Auto) 0.6, Neut % (Auto) 80.8, Lymph % (Auto) 12.7, [place] % (Auto) 5.8, Eos % (Auto) 0.0, Baso % (Auto) 0.1, Immature Gran # (Auto) 0.1, Neut # 8.2 H, Lymph # 1.3, [place] # 0.6, Eos # 0.0, Baso # 0.0 ASSESSMENT: 1. Acute bronchitis 2. COPD. 3. Anemia. PLAN: 1. D/C home 2. Prednisone 10 mg b.i.d. for five more days 3. Keflex 500 mg t.i.d. times 7 days 4. Symbicort inhaler 5. Followup on Tuesday or Tuesday Plan and coordination of the patient's care discussed in the presence of General Magistrate and nurse. CONDITION: Stable SCRIBED BY: ZHANNA RICHARD Department Head scribed while in presence of service performed by Dr. Gupta/Patito Rodriguez APRN on 06/16/17 ([id number])
--- NOTE | 2017-06-16 13:08 | CM.DICTOOL ---
ADMISSION: 06/13/17 11:08 DISCHARGE: 06/16/17 DATE OF SERVICE: 06/16/17 FINAL DIAGNOSIS ACUTE BRONCHITIS PNEUMONITIS COPD OXYGEN DEPENDENT ANEMIA/GI BLEED CAD S/P STENT APPLICATION MODERATE TRICUSPID AND MILD MITRAL REGURG (ECHO 09/05/15) DSYLIPIDEMIA HYPERTENSION PERIPHERAL NEUROPATHY DJD SPINE OA/OP WEIGHT LOSS, CACHEXIA ANXIETY AAA REPAIR COLON CANCER BY HISTORY CATARACT SURGERY HYSTERECTOMY LAST VITALS Temp Pulse Resp BP Pulse Ox 97.5 F L 65 17 125/59 L 98 06/16/17 06:00 06/16/17 06:00 06/16/17 06:00 06/16/17 06:00 06/16/17 06:00 ACTIVE MEDICATIONS Acetaminophen (Tylenol) 500 - 1,000 mg PO Q6HR PRN PRN Reason: pain Acetaminophen/Hydrocodone Bitart ([place] 5-325) 1 tab PO TID PRN PRN Reason: pain Albuterol Sulfate (Proair Hfa) 2 puff IH BID [facility] Last Admin: 06/15/17 20:48 Dose: 2 puff Alprazolam (Xanax) 0.25 mg PO TID [facility] Last Admin: 06/15/17 20:49 Dose: 0.25 mg Amlodipine Besylate (Norvasc) 5 mg PO BEDTIME [facility] Last Admin: 06/15/17 20:49 Dose: 5 mg Aspirin (Aspirin Ec) 81 mg PO DAILYWM [facility] Last Admin: 06/15/17 08:53 Dose: 81 mg Budesonide/Formoterol Fumarate (Symbicort 160-4.5 Mcg Inhaler) 2 puff IH BID [facility] Last Admin: 06/15/17 20:48 Dose: 2 puff Calcium/Vitamin D (Calcium 500 + Vit D 200 Mg Tablet) 1 each PO DAILY [facility] Last Admin: 06/15/17 08:54 Dose: 1 each Escitalopram Oxalate (Lexapro) 10 mg PO 1700 [facility] Last Admin: 06/15/17 16:59 Dose: 10 mg Ferrous Sulfate (Ferrous Sulfate) 324 mg PO DAILY [facility] Last Admin: 06/15/17 08:53 Dose: 324 mg Furosemide (Lasix Tab) 20 mg PO QDAC [facility] Last Admin: 06/16/17 05:36 Dose: 20 mg Gabapentin (Neurontin) 100 mg PO BID [facility] Last Admin: 06/15/17 20:48 Dose: 100 mg Hydroxyzine HCl (Atarax) 50 mg PO BID [facility] Last Admin: 06/15/17 20:49 Dose: 50 mg Beta-Carotene(A) W-C & E/Min [Vision Vitamins] 1 each PO BID [facility] Last Admin: 06/15/17 20:51 Dose: Not Given Cyanocobalamin (Vitamin B-12) [Vitamin B-12] 500 mg PO MOWEFR [facility] Last Admin: 06/15/17 17:06 Dose: Not Given Pantoprazole Sodium (Protonix) 40 mg PO QDAC [facility] Last Admin: 06/16/17 05:36 Dose: 40 mg Polyethylene Glycol (Miralax) 17 gm PO DAILY [facility] Last Admin: 06/15/17 08:53 Dose: Not Given Potassium Chloride (K-Dur) 20 meq PO DAILY [facility] Last Admin: 06/15/17 08:53 Dose: 20 meq Simvastatin (Zocor) 40 mg PO 1700 [facility] Last Admin: 06/15/17 16:59 Dose: 40 mg Theophylline (Jeancarlos-Dur) 300 mg PO BEDTIME [facility] Last Admin: 06/15/17 20:49 Dose: 300 mg Tizanidine HCl (Zanaflex) 4 mg PO BEDTIME [facility] Last Admin: 06/15/17 20:50 Dose: 4 mg ALLERGIES clindamycin Adverse Reaction (Unknown, Unverified 11/11/16 12:15) diarrhea Penicillins Adverse Reaction (Verified 08/30/16 08:21) NEW PRESCRIPTIONS: KEFLEX 500 MG, TAKE ONE CAPSULE BY MOUTH THREE TIMES DAILY FOR 7 DAYS PREDNISONE 10 MG, TAKE ONE TABLET BY MOUTH TWICE DAILY WITH FOOD FOR 5 DAYS SMOKING: FORMER SMOKER NONE NOW DISEASE SPECIFIC EDUCATION: BRONCHITIS/PNEUMONITIS HOME MEDICATIONS NEW PRESCRIPTIONS ADVERSE EFFECTS OF 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6, Neut % (Auto) 80.8, Lymph % (Auto) 12.7, [place] % (Auto) 5.8, Eos % (Auto) 0.0, Baso % (Auto) 0.1, Immature Gran # (Auto) 0.1, Neut # 8.2 H, Lymph # 1.3, [place] # 0.6, Eos # 0.0, Baso # 0.0 PLAN: DISCHARGE HOME TODAY RETURN TO SEE DR. GUPTA ON 06/20/17 OR 06/21/17. PLEASE PHONE THE OFFICE TO SCHEDULE YOUR FOLLOW UP APPOINTMENT RESUME YOUR HOME MEDICATIONS PER LIST PROVIDED BY THE NURSING STAFF NEW PRESCRIPTIONS: KEFLEX 500 MG, TAKE ONE CAPSULE BY MOUTH THREE TIMES DAILY FOR 7 DAYS PREDNISONE 10 MG, TAKE ONE TABLET BY MOUTH TWICE DAILY WITH FOOD FOR 5 DAYS ACTIVITY: GET PLENTY OF REST AT HOME. GRADUALLY INCREASE YOUR ACTIVITY LEVEL ACCORDING TO YOUR TOLERATION DIET: HEALTHY HEART TOLERATED SUMMARY: THE PATIENT IS ALERT AND ORIENTED X3. SHE CURRENTLY RESIDES AT HOME. SHE IS INDEPENDENT WITH ADL'S. HER FAMILY IS SUPPORTIVE OF HER NEEDS WHEN NECESSARY. SHE HAS OXYGEN, A WALKER AND A WHEELCHAIR AT HOME. SHE DOES NOT UTILIZE HOME HEALTH OR HOMEMAKING SERVICES. SHE DESIRES TO RETURN TO HER HOME AT DISCHARGE. [facility] IS INTACT. SHE HAS NO DECUBITUS ULCERS AT DISCHARGE. HER HYDRATION STATUS HAS IMPROVED SINCE ADMISSION. SHE IS AWARE OF DISCHARGE PLANS FOR TODAY AND IS AGREEABLE. WE WILL FOLLOW HER THROUGH THE OFFICE IN 5-7 DAYS. CURRENT CODE STATUS: DO NOT RESUSCITATE GEOFFREY HELM APRN KELI GUPTA M.D.
--- NOTE | 2017-06-27 15:45 | DS ---
DATE OF SERVICE: 06/16/17 FINAL DIAGNOSIS: 1. ACUTE BRONCHITIS 2. PNEUMONITIS 3. COPD OXYGEN DEPENDENT 4. ANEMIA/GI BLEED 5. CAD STATUS POST STENT APPLICATION 6. MODERATE TRICUSPID AND MILD MITRAL REGURGITATION (ECHO 09/05/15) 7. DYSLIPIDEMIA 8. HYPERTENSION 9. PERIPHERAL NEUROPATHY 10. DJD SPINE 11. OA/OP 12. WEIGHT LOSS, CACHEXIA 13. ANXIETY 14. AAA REPAIR 15. COLON CANCER BY HISTORY 16. CATARACT SURGERY 17. HYSTERECTOMY DISCHARGE INSTRUCTIONS: Followup appointment: Return to see Dr. Shi on 06/20/17 or 06/21/17. Please phone the office to schedule your follow up appointment. MEDICATIONS AT DISCHARGE: Acetaminophen (Tylenol) 500-1,000 mg p.o. q.6hr p.r.n. Acetaminophen/Hydrocodone Bitart ([place] 5-325) one tab p.o. t.i.d. p.r.n. Albuterol (ProAir Hfa) two puff IH b.i.d. ANKITA Alprazolam (Xanax) 0.25 mg p.o. t.i.d. ANKITA Amlodipine (Norvasc) 5 mg p.o. bedtime ANKITA Aspirin 81 mg p.o. daily with meal ANKITA Budesonide/Formoterol (Symbicort 160-4.5 mcg) two puff IH b.i.d. ANKITA Calcium/Vitamin D (Calcium 500 +Vit D 200 mg) one each p.o. daily ANKITA Escitalopram (Lexapro) 10 mg p.o. 1700 ANKITA Ferrous Sulfate 324 mg p.o. daily ANKITA Furosemide (Lasix) 20 mg p.o. q.d a.c ANKITA Gabapentin 100 mg p.o. b.i.d. ANKITA Hydroxyzine (Atarax) 50 mg p.o. b.i.d. ANKITA Beta Carotene (A) W-C & E/min (Vision Vitamins) one each p.o. b.i.d. ANKITA Cyanocobalamin (Vitamin B12) 500 mg p.o. MoWeFr ANKITA Pantoprazole (Protonix) 40 mg p.o. q.d a.c. ANKITA Polyethylene Glycol (Miralax) 17 mg p.o. daily ANKITA Potassium Chloride (K-Dur) 20 mEq p.o. daily ANKITA Simvastatin (Zocor) 40 mg p.o. 1700 ANKITA Theophylline (Jeancarlos-Dur) 300 mg p.o. bedtime ANKITA Tizanidine (Zanaflex) 4 mg p.o. bedtime ANKITA NEW PRESCRIPTIONS: Keflex 500 mg take one capsule by mouth three times daily for 7 days Prednisone 10 mg take one tablet by m outh twice daily with food for 5 days DIET INSTRUCTIONS: Healthy heart as tolerated. ACTIVITY: Get plenty of rest at home. Gradually increase your activity level according to your toleration. SMOKING: N/A DISEASE SPECIFIC EDUCATION: Bronchitis/Pneumonitis Home medications New prescriptions Adverse effects of long-term steroid use including bone demineralization Follow up HOSPITAL COURSE: This is an 87-year-old female who was a direct admit from our office. She arrived at the office on 06/13 and was found to be short of breath, have worsening cough and congestion. She is oxygen dependent with severe COPD. She has been treated as an outpatient with p.o. steroids and antibiotics and this subsequently failed over the past several weeks. Her oxygen saturation in the office was 90% and below with exertion. She was subsequently admitted. Her chest x-ray showed no pneumonia, only acute bronchitis and chronic changes associated with COPD. She was started on Zithromax p.o. daily for three days along with Rocephin 1 gm IV daily along with Solu-Medrol 125 mg q.8hr. We started her on nebulizer treatments, Duonebs q.6hr for cough. Over the course of several days after the IV steroids and antibiotics, her wheezing and ease of breathing has significantly improved. Today, on day of discharge, her pulse ox is 98% on 2L. Her vital signs have been stable. On the day of admission, she had low grade temperature of 99, has had none since. Today, temperature 97.5, heart rate 65, respirations 17, BP 125/59 and pulse ox 98%. Yesterday, she was placed on Prednisone 10 mg by mouth b.i.d. and her Solu-Medrol was discontinued. Today we will discontinue her Rocephin. She has completed the three day course of Zithromax. We will start her on Keflex 500 mg t.i.d. for the next 7 days to go home as well as continue Prednisone 10 mg b.i.d. for the next five days. We will followup with her on Tuesday or Tuesday of next week, The patient has oxygen at home. The past two days she has been eating 75 to 100 % of her meals. She has been up and about on her own with the assistance of a walker and her oxygen. Her vital signs have been stable. Her labs look good. White count 10.2, hemoglobin 10.6, hematocrit 32.2, platelets 274. Sodium 141, potassium 3.7, BUN 17, creatinine 0.61. BNP was normal on admission. She has been on routine telemetry which has shown sinus rhythm with a few PACs. Her weight has remained stable. She is alert and oriented. She will be discharged home today in stable condition. TIME SPENT: More than 60 minutes. NAEL
== END 2017-06-16 11:10 | disposition home or self-care (01) | DRG 202 ==
LOC: MEDSURG B 11:08
PROVIDERS: ADMIT Internal Medicine; ATTEND Internal Medicine
DX: J20.9 Acute bronchitis, unspecified (principal); J96.01 Acute respiratory failure with hypoxia; J44.0 Chronic obstructive pulmonary disease with (acute) lower respiratory infection; K92.2 Gastrointestinal hemorrhage, unspecified; D50.0 Iron deficiency anemia secondary to blood loss (chronic); R50.9 Fever, unspecified; R06.02 Shortness of breath; I34.0 Nonrheumatic mitral (valve) insufficiency; I07.1 Rheumatic tricuspid insufficiency; I25.10 Atherosclerotic heart disease of native coronary artery without angina pectoris; E78.5 Hyperlipidemia, unspecified; I10 Essential (primary) hypertension; G62.9 Polyneuropathy, unspecified; M47.9 Spondylosis, unspecified; R63.4 Abnormal weight loss; F41.9 Anxiety disorder, unspecified; M19.90 Unspecified osteoarthritis, unspecified site; M81.0 Age-related osteoporosis without current pathological fracture; Z85.038 Personal history of other malignant neoplasm of large intestine; Z95.5 Presence of coronary angioplasty implant and graft; Z99.81 Dependence on supplemental oxygen; Z79.899 Other long term (current) drug therapy
CPT/HCPCS: 36415; 80053; 81001; 82550; 82803; 83874; 83880; 84484; 85025; 93005; 93010; 94640

== ENCOUNTER 2017-08-02 09:11 | Outpatient (CLI) ==
[2017-08-02 10:16] LABS: CALCIUM 10.1 mg/dL (8.2-10.2); MAGNESIUM 1.7 mg/dL (1.7-2.2); PHOSPHORUS 3.5 mg/dL (2.8-4.1)
== END 2017-08-02 09:12 | disposition home or self-care (01) ==
LOC: LAB 09:11
PROVIDERS: ATTEND Nurse Practitioner Family
DX: M81.0 Age-related osteoporosis without current pathological fracture (principal)
CPT/HCPCS: 36415; 82306; 82310; 83735; 84100

== ENCOUNTER 2017-10-07 13:20 | Inpatient (IN) ==
[2017-10-07] MEDS ORDERED: NORCO 10-325 PO STA (16:02)
--- NOTE | 2017-10-07 16:58 | US ---
EXAM: ULTRASOUND LOWER EXTREMITY VENOUS DOPPLER EXAM HISTORY: Leg pain. FINDINGS: Left lower extremity venous Doppler exam. Real time pena-scale, Doppler spectral analysis and color-flow Doppler imaging performed. The veins targeted for evaluation include the common femor al, greater saphenous, profundus, femoral, popliteal, peroneal, anterior tibial and posterior tibial. The evaluated veins demonstrated normal spontaneous flow and compression without evidence of throm bosis. IMPRESSION: No venous thrombosis identified within the areas evaluated.
--- NOTE | 2017-10-07 17:21 | CT ---
EXAM: CT scan of the chest without contrast HISTORY: Fall. Right rib pain TECHNIQUE: Imaging of the chest was performed without contrast. 5 mm thin axial images and coronal and sagittal images were provided for interpretation. Comparison CT scan of the chest dated 09/27/2016. FINDINGS: No acute fractures are seen within the osseous structures. The heart is normal size. No mediastinal masses are seen. There is diffuse atherosclerotic calcification of the thoracic aorta. There appears to be an opacity seen in the right lower lobe of the lung. Additional patchy opacities are also seen in the dependent left lower lobe of the lung and within the left upper lobe of the lung . IMPRESSION: No acute traumatic abnormalities are seen within the thorax. Right lower lobe pneumonia. Additional patchy areas of probable pneumonia are also seen in the left l ower lobe and left upper lobe of the lung.
--- NOTE | 2017-10-07 17:22 | CT ---
EXAM: CT lumbar spine without intravenous contrast 10/07/2017. Sagittal and coronal reformatted janes ges obtained HISTORY: Pain COMPARISON: 12/16/2015 FINDINGS: Chronic partial compression fracture of T12. The lumbar vertebral bodies appear intact without fracture. The facet joints align normally Normal anatomic alignment is maintained. Chronic healed fracture within the S3-S4 level. No acute fracture identified. Partially visualized aortoiliac stent graft. IMPRESSION: Chronic and postoperative findings. There is no acute osseous abnormality of the lumbar spine.
--- NOTE | 2017-10-07 17:25 | CT ---
EXAM: CT scan of the thoracic spine without contrast HISTORY: Fall, back pain TECHNIQUE: Imaging of the thoracic spine was performed without contrast. Sagittal and coronal recon structions and axial images were provided for interpretation. FINDINGS: The alignment of the thoracic spine is normal. There is no evidence of acute compression fracture. The paraspinal soft tissues are normal. The spinous processes are intact. There is a norm al alignment of the facet joints. IMPRESSION: No evidence of acute fracture seen within the thoracic spine.
--- NOTE | 2017-10-07 17:25 | CT ---
EXAM: CT pelvis without contrast HISTORY: Pelvic pain post fall. COMPARISON: CT abdomen pelvis 09/27/2016 and multiple priors TECHNIQUE: Serial axial images of the pelvis were obtained without contrast. These were viewed in m ultiple planes. FINDINGS: The osseous structures demonstrate mild degenerative disease and generalized osteopenia. There is de generative disease of the sacroiliac joints. The pelvis is unremarkable. Internal fixation hardware in the left hip with associated degenerative change and osteophyte formation is stable when compared to prior CT. There is narrowing and osteophyte formation of the right hip joint space. The soft tissues demonstrate moderate atherosclerotic disease with endograft stent and bilateral rowdy c extensions present. The urinary bladder is distended. Small bowel and colon are unremarkable. Th ere is surgical change in the anterior mid pelvis and in the right lower quadrant. There is no free a ir or free fluid. IMPRESSION: 1. No acute abnormality or displaced fracture of the pelvis. 2. Internal fixation hardware in the left hip with degenerative changes of both hips and spine are u nchanged in comparison to prior study. 3. Aortic endograft is unchanged with scattered atherosclerotic disease. 4. Surgical changes in the anterior mid pelvis and right lower quadrant with no evidence of obstruct ion.
[2017-10-07] MEDS ORDERED: ROCEPHIN 1 GM in SODIUM CHLORIDE 50 ML IV STA (17:34)
[2017-10-07] MEDS ORDERED: SOLU-MEDROL 125 MG IVP STA (17:35)
[2017-10-07] MEDS ORDERED: ROCEPHIN ONE (17:48)
[2017-10-07] MEDS ORDERED: DUONEB NEB SCH (18:00)
--- NOTE | 2017-10-07 18:41 | ED.PDOC ---
General ED Provider: Dr. CHADD PIZARRO Chief Complaint: Back Pain Stated Complaint: BACK PAIN Time Seen by Physician: 13:21 (THIS PT WAS SEEN nery at ALL TIMES ) Mode of Arrival: Wheelchair Information Source: Patient Exam Limitations: No limitations Primary Care Provider: KELI GUPTA Nursing and Triage Documentation Reviewed and Agree: Yes Reviewed sepsis parameters & appropriate labs ordered?: Yes System Inflammatory Response Syndrome: Not Applicable Sepsis Protocol: For patient's 13 years and over: Temp is 96.8 and below OR 101 and greater Pulse >90 BPM Resp >20/minute Acutely Altered Mental Status Are patient's symptoms suggestive of a new infection, such as: -Pneumonia -Skin, Soft Tissue -Endocarditis -UTI -Bone, Joint Infection -Implantable Device -Acute Abdominal Infection -Wound Infection -Meningitis -Blood Stream Catheter Infection -Unknown System Inflammatory Response Syndrome: Not Applicable Respiratory Complaint Exam - Respiratory Complaint/Exam Onset/Duration: CHRONIC Symptoms Are: Still present Timing: Intermittent Initial Severity: Moderate Current Severity: Moderate Location: Throat Character: Reports: Non-productive cough Aggravating: Reports: None Alleviating: Reports: None Associated Signs and Symptoms: Reports: Nasal congestion. Denies: Rapid breathing, Dyspnea, Fever, Chills, Chest pain, Pleuritic chest pain, Wheezing, Hemoptysis, Dizziness, Calf pain, Calf swelling, Edema, URI, Hoarseness, Sinus discomfort, Vomiting, Sore throat, Weight loss, Decreased oral intake, Increased thirst, Increased appetite, Increased urination Related History: Reports: Similar episode History of Healthcare-Acquired Pneumonia: No Related Surgical History: Reports: None Pulmonary Embolism Risk Factors: None Review of Systems - Review Of Systems Constitutional: Reports: Malaise Eyes: Reports: No symptoms Ears, Nose, Mouth, Throat: Reports: No symptoms Respiratory: Reports: Cough Cardiac: Reports: No symptoms GI: Reports: No symptoms : Reports: No symptoms Musculoskeletal: Reports: Back pain Skin: Reports: No symptoms Neurological: Reports: No symptoms Endocrine: Reports: No symptoms Hematologic/Lymphatic: Reports: No symptoms All Other Systems: Reviewed and Negative Past Medical History - Past Medical History Previously Healthy: Yes Endocrine: Reports: None Cardiovascular: Reports: IA Respiratory: Reports: COPD, Asthma Hematological: Reports: Anemia Gastrointestinal: Reports: None Genitourinary: Reports: None Neuro/Psych: Reports: None Musculoskeletal: Reports: Arthritis, Joint Pain, Other (LEFT THIGH PAIN- RECENT FEMUR FRACTURE-IN [facility] IN [place] FOR REHAB) Cancer: Reports: None Last Menstrual Period: unknown Other Pertinent Past Medical History: LIVES ALONE EATS POORLY PER FAMILY- ATE BETTER WHEN MEALS PROVIDED AT [facility] - Surgical History General Surgical History: Reports: Hysterectomy, Cholecystectomy - Family History Family History: Reports: Unknown - Social History Smoking Status: Former smoker Hx Substance Use: No Alcohol Screening: None Physical Exam - Physical Exam Appearance: Well-appearing, No pain distress, Well-nourished Eyes: SARAH, EOMI, Conjunctiva clear ENT: Ears normal, Nose normal, Oropharynx normal Respiratory: Airway patent, Breath sounds clear, Breath sounds equal, Respirations nonlabored Cardiovascular: RRR, Pulses normal, No rub, No murmur GI/: Soft, Nontender, No masses, Bowel sounds normal, No Organomegaly Musculoskeletal: Normal strength, ROM intact, No edema, No calf tenderness Skin: Warm, Dry, Normal color Neurological: Sensation intact, Motor intact, Reflexes intact, Cranial nerves intact, Alert, Oriented Psychiatric: Affect appropriate, Mood appropriate Interpretation - Radiology Interpretation Radiology Interpretation By: Radiologist Radiology Results: No acute changes Re-Evaluation - Re-Evaluation Time of Re-Evaluation: 16:00 Status: Improved Vital Signs Stable: Yes Pain Level: 6 Appearance: NAD Lungs: Clear Skin: Warm and Dry Neuro: Alert and Oriented X3 CV: RRR - Re-Evaluation Time of Re-Evaluation: 18:42 (SEEN WITH NURSING STAFF AND POLICE LIEUTENANT PATROL AT ALL TIMES ) Status: Improved Vital Signs Stable: Yes Pain Level: 7 Appearance: NAD Skin: Warm and Dry Neuro: Alert and Oriented X3 CV: RRR Additional Comments: THIS IS A CHRONIC ISSUE WORSE TODAY REPORTS OF ALL IMAGING GIVE TO FAMILY Physician Notification - Case Discussed Physician Notified: PMD Time of Notification: 18:43 Admit To: Inpatient Critical Care Note - Critical Care Note Total Time (mins): 0 Course - Course Hematology/Chemistry: 10/07/17 17:57 Orders, Labs, Meds: Lab Review 10/07/17 10/07/17 10/07/17 17:34 17:38 17:57 Puncture Site Lbrach O2 Saturation 98.0 ABG pH 7.438 ABG pCO2 54.4 H ABG pO2 112.0 H ABG HCO3 36.8 H ABG Total CO2 38 H ABG Base Excess 13 H O2 Delivery Device Nc Oxygen Liter Flow 2.00 Sodium 140 Potassium 4.1 Chloride 95 L Carbon Dioxide 35 H Anion Gap 14.1 BUN 9 Creatinine 0.72 Estimated GFR (MDRD) 76.00 BUN/Creatinine Ratio 12.50 Glucose 90 Calcium 9.9 Total Bilirubin 0.4 AST 10 L ALT 9 L Alkaline Phosphatase 79 Total Protein 7.3 Albumin 3.0 L Globulin 4.3 Albumin/Globulin Ratio 0.70 Influenza A (Rapid) Negative by naat Influenza B (Rapid) Negative by naat Orders Category Date Time Status ABG DRAW REQUEST Stat CARDIO 10/07/17 17:34 Completed EKG-(ED ONLY) Stat CARDIO 10/07/17 17:33 Completed NEBULIZER TREATMENT Routine CARDIO 10/07/17 17:35 Active IV ACCESS ONCE CARE 10/07/17 17:33 Active IV [ED IV/MEDIPORT/POWERPORT] .ONCE EMERGENCY 10/07/17 17:43 Active ABG Stat LAB 10/07/17 17:34 Completed BLOOD CULTURE Stat LAB 10/07/17 17:34 Received CBC W/ AUTO DIFF Stat LAB 10/07/17 17:57 Received COMPREHENSIVE METABOLIC PANEL Stat LAB 10/07/17 17:57 Completed FLU A/B MOLECULAR Stat LAB 10/07/17 17:38 Completed MOLECULAR GROUP A STREP Stat LAB 10/07/17 17:38 Received PROCALCITONIN Stat LAB 10/07/17 17:57 Received 0.9 % Sodium Chloride [Saline Flush] MEDS 10/07/17 17:43 Ordered 1 syr IVF PRN PRN Ceftriaxone Sodium [Rocephin] MEDS 10/07/17 17:48 Discontinued 1 gm .ROUTE .STK-MED ONE Ceftriaxone Sodium [Rocephin] 1 gm MEDS 10/07/17 17:34 Discontinued 0.9 % Sodium Chloride [Sodium Chloride] 50 ml IV ONCE Hydrocodone Bit/Acetaminophen [[place] 10-325] MEDS 10/07/17 16:02 Discontinued 1 tab PO ONCE STA Ipratropium/Albuterol Neb [Duoneb] MEDS 10/07/17 18:00 Ordered 1 vial NEB RTQ6H Methylprednisolone Sod Succ/Pf [Solu-Medrol 125 mg] MEDS 10/07/17 17:35 Discontinued [address] ON[address] CHEST W/O CONTRAST Stat RADS 10/07/17 16:[address] LUMBAR SPINE W/O CONTRAST Stat RADS 10/07/17 16:[address] PELVIS W/O CONTRAST Stat RADS 10/07/17 16:[address] THORACIC SPINE W/O CONTRAST Stat RADS 10/07/17 16:02 Completed U/S VENOUS SCAN LT. LEG Stat RADS 10/07/17 16:16 Completed Medications Generic Name Dose Route Start Last Admin Trade Name Freq PRN Reason Stop Dose Admin Albuterol/Ipratropium 1 vial 10/07/17 18:00 Duoneb NEB RTQ6H ANKITA Sodium Chloride 1 syr 10/07/17 17:43 10/07/17 18:02 Saline Flush IVF 1 syr PRN PRN Administration To flush IV Discontinued Medications Generic Name Dose Route Start Last Admin Trade Name Freq PRN Reason Stop Dose Admin Acetaminophen/Hydrocodone Bitart 1 tab 10/07/17 16:02 10/07/17 16:16 [place] 10-325 PO 10/07/17 16:03 1 tab ONCE STA Administration Ceftriaxone Sodium 1 gm/ 50 mls @ 75 mls/hr 10/07/17 17:34 10/07/17 18:02 Sodium Chloride IV 10/07/17 18:13 75 mls/hr ONCE STA Administration Methylprednisolone Sodium Succinate 125 mg 10/07/17 17:35 10/07/17 18:05 Solu-Medrol 125 Mg IVP 10/07/17 17:36 Not Given ONCE STA Vital Signs: Temp Pulse Resp BP Pulse Ox 10/07/17 13:21 99.3 F 75 20 121/82 91 L Departure - Departure Time of Disposition: 18:41 Disposition: ADMITTED INPATIENT Discharge Problem: Pneumonia Qualifiers: Pneumonia type: due to unspecified organism Instructions: Pneumonitis (ED) Condition: Good Pt referred to PMD for follow-up: Yes IPMP verified?: Yes Additional Instructions: Please call your Family Physician as soon as possible to schedule a follow-up appointment. Allergies/Adverse Reactions: Allergies clindamycin Adverse Reaction (Unknown, Verified 10/07/17 13:35) diarrhea Penicillins Adverse Reaction (Verified 10/07/17 13:35) Home Medications: Ambulatory Orders Gabapentin 100 mg PO BID 03/22/13 Theophylline Anhydrous [Theophylline] 300 mg PO BEDTIME 03/22/13 Alprazolam 0.25 mg PO TID 08/29/15 Beta-Carotene(A)-Vits C,E/Mins [Vision Vitamins] 1 each PO BID 08/30/16 Potassium Chloride [K-Dur] 20 meq PO DAILY 08/30/16 Pantoprazole Sodium [Protonix] 40 mg PO DAILY 09/27/16 Tizanidine HCl 4 mg PO BID 09/27/16 Cyanocobalamin (Vitamin B-12) [Vitamin B-12] 500 mg PO 2 TIMES PER WEEK Ferrous Gluconate 324 mg PO DAILY 11/11/16 Furosemide 20 mg PO DAILY 11/11/16 Hydrocodone/Acetaminophen [[place] 5-325 Tablet] 1 tab PO TID PRN 11/11/16 Acetaminophen [Tylenol Extra Strength] 1 - 2 tab PO Q6HR PRN 06/13/17 Albuterol Sulfate [Proair Hfa] 2 inh INH BID 06/13/17 Amlodipine Besylate 5 mg PO BEDTIME 06/13/17 Budesonide/Formoterol Fumarate [Symbicort 160-4.5 Mcg Inhaler] 2 inh INH BID 05/22 Escitalopram Oxalate [Lexapro] 10 mg PO 1700 06/13/17 Ipratropium/Albuterol Neb [Duoneb] 1 vial INH QID 06/13/17 Simvastatin 40 mg PO 1700 06/13/17 Calcium Carbonate/Vitamin D3 [Calcium 1,000 + D3 Caplet] 1 each PO DAILY Hydroxyzine HCl [Atarax] 25 mg PO BID 10/07/17
[2017-10-07 20:46] VITALS: BMI 15.9
[2017-10-07] MEDS ORDERED: SOLU-MEDROL 40 MG IVP SCH (21:00)
[2017-10-07] MEDS ORDERED: PROAIR HFA IH SCH ×2 (21:10→21:46)
[2017-10-07] MEDS ORDERED: CYANOCOBALAMIN 500 MG PO SCH (21:15)
[2017-10-07] MEDS ORDERED: SYMBICORT 160-4.5 MCG INHALER IH SCH (21:30)
[2017-10-07] MEDS: NEURONTIN PO SCH (21:55)
[2017-10-07] MEDS: ATARAX PO SCH (21:55)
[2017-10-07] MEDS: NORVASC PO SCH (21:56)
[2017-10-07] MEDS: ZANAFLEX PO SCH (21:56)
[2017-10-07] MEDS: XANAX PO SCH (21:56)
[2017-10-07] MEDS ORDERED: SOLU-MEDROL 125 MG IVP SCH (22:00)
[2017-10-07] MEDS ORDERED: SOLU-CORTEF 250 MG IVP SCH (22:00)
[2017-10-07] MEDS: SOLU-CORTEF 250 MG IVP SCH (23:32)
[2017-10-07] MEDS: XOPENEX 1.25 MG NEB SCH (23:40)
[2017-10-08] MEDS: XOPENEX 1.25 MG NEB SCH ×4 (04:55→22:51)
[2017-10-08] MEDS: SOLU-CORTEF 250 MG IVP SCH ×3 (05:25→21:27)
[2017-10-08] MEDS ORDERED: NON-FORMULARY MEDICATION (Ferrous Gluconate [Ferrous Gluconate] 324 MG) PO SCH (09:00)
[2017-10-08] MEDS ORDERED: VITAMIN D3 PO SCH (09:00)
[2017-10-08] MEDS ORDERED: [UNRECOGNIZED DRUG - OTHER] PO SCH (09:00)
[2017-10-08] MEDS ORDERED: CALCIUM CARBONATE PO SCH (09:00)
[2017-10-08] MEDS: ATARAX PO SCH ×2 (09:20→21:25)
[2017-10-08] MEDS: MINS PO SCH ×2 (09:20→21:33)
[2017-10-08] MEDS: BETA CAROTENE VITS C E PO SCH ×2 (09:20→21:33)
[2017-10-08] MEDS: FERROUS SULFATE PO SCH (09:21)
[2017-10-08] MEDS: K-DUR PO SCH (09:21)
[2017-10-08] MEDS: CALCIUM 500 + VIT D 200 MG TABLET PO SCH (09:21)
[2017-10-08] MEDS: LASIX TAB PO SCH (09:22)
[2017-10-08] MEDS: NEURONTIN PO SCH ×2 (09:22→21:25)
[2017-10-08] MEDS: XANAX PO SCH ×3 (09:23→21:26)
[2017-10-08] MEDS: PROTONIX PO SCH (09:23)
[2017-10-08] MEDS: ZANAFLEX PO SCH ×2 (09:23→21:24)
[2017-10-08] MEDS: ROCEPHIN 1 GM in SODIUM CHLORIDE 50 ML IV SCH (09:33)
[2017-10-08] MEDS: PROAIR HFA IH SCH ×2 (09:34→21:23)
[2017-10-08] MEDS: SYMBICORT 160-4.5 MCG INHALER IH SCH ×2 (09:34→21:23)
[2017-10-08] MEDS: LEXAPRO PO SCH (17:06)
[2017-10-08] MEDS: ZOCOR PO SCH (17:06)
[2017-10-08] MEDS ORDERED: THEOPHYLLINE ANHYDROUS 300 MG PO SCH (21:00)
[2017-10-08] MEDS: THEO-DUR PO SCH (21:24)
[2017-10-08] MEDS: NORVASC PO SCH (21:26)
[2017-10-08] MEDS: DECADRON 4 MG/ML SDV IM SCH (22:14)
[2017-10-09] MEDS: XOPENEX 1.25 MG NEB SCH ×4 (04:52→23:55)
[2017-10-09] MEDS: PROTONIX PO SCH (05:48)
[2017-10-09] MEDS: LASIX TAB PO SCH (05:49)
[2017-10-09] MEDS: PROAIR HFA IH SCH ×2 (09:32→20:35)
[2017-10-09] MEDS: SYMBICORT 160-4.5 MCG INHALER IH SCH ×2 (09:32→20:35)
[2017-10-09] MEDS: DECADRON 4 MG/ML SDV IM SCH (09:33)
[2017-10-09] MEDS: CALCIUM 500 + VIT D 200 MG TABLET PO SCH (09:33)
[2017-10-09] MEDS: FERROUS SULFATE PO SCH (09:33)
[2017-10-09] MEDS: K-DUR PO SCH (09:33)
[2017-10-09] MEDS: NEURONTIN PO SCH ×2 (09:34→20:37)
[2017-10-09] MEDS: ATARAX PO SCH ×2 (09:34→20:36)
[2017-10-09] MEDS: XANAX PO SCH ×3 (09:34→20:37)
[2017-10-09] MEDS: ZANAFLEX PO SCH ×2 (09:35→20:37)
[2017-10-09] MEDS: ROCEPHIN 1 GM in SODIUM CHLORIDE 50 ML IV SCH (09:35)
[2017-10-09] MEDS: MINS PO SCH ×2 (09:35→20:25)
[2017-10-09] MEDS: BETA CAROTENE VITS C E PO SCH ×2 (09:35→20:25)
[2017-10-09] MEDS ORDERED: LIDOCAINE HCL 1% SDV SUBCUT STA (12:15)
[2017-10-09] MEDS: ROCEPHIN IM SCH (14:29)
[2017-10-09] MEDS: LEXAPRO PO SCH (17:27)
[2017-10-09] MEDS: ZOCOR PO SCH (17:27)
[2017-10-09] MEDS: THEO-DUR PO SCH (20:35)
[2017-10-09] MEDS: NORVASC PO SCH (20:36)
[2017-10-09] MEDS: NORCO 5-325 PO PRN (21:06)
[2017-10-10] MEDS: LASIX TAB PO SCH (05:48)
[2017-10-10] MEDS: PROTONIX PO SCH (05:48)
[2017-10-10] MEDS: XOPENEX 1.25 MG NEB SCH ×3 (06:14→18:30)
[2017-10-10] MEDS: SYMBICORT 160-4.5 MCG INHALER IH SCH ×2 (09:28→20:38)
[2017-10-10] MEDS: PROAIR HFA IH SCH ×2 (09:28→20:38)
[2017-10-10] MEDS: CALCIUM 500 + VIT D 200 MG TABLET PO SCH (09:29)
[2017-10-10] MEDS: FERROUS SULFATE PO SCH (09:30)
[2017-10-10] MEDS: K-DUR PO SCH (09:30)
[2017-10-10] MEDS: ZITHROMAX PO SCH (09:30)
[2017-10-10] MEDS: XANAX PO SCH ×3 (09:30→20:39)
[2017-10-10] MEDS: ZANAFLEX PO SCH ×2 (09:30→20:39)
[2017-10-10] MEDS: ATARAX PO SCH ×2 (09:31→20:38)
[2017-10-10] MEDS: DECADRON 4 MG/ML SDV IM SCH (09:31)
[2017-10-10] MEDS: NEURONTIN PO SCH ×2 (09:31→20:39)
--- NOTE | 2017-10-10 10:07 | PCM.PROG ---
Attending Provider: ATTENDING PROVIDER: Dr. KELI GUPTA This patient is seen with Patito Rodriguez, Nurse Practitioner. DATE OF SERVICE: 10/10/17 SUBJECTIVE: This 87 year old WHITE/ F was hospitalized 10/07/17. The patient is alert, sitting in chair. She states she is feeling better, cough is improved. We will repeat chest x-ray today. REVIEW OF SYSTEMS: CONSTITUTIONAL: Weakness. No night sweats. No malaise, lethargy. No fever or chills. HEENT: Eyes: No visual changes. No eye pain. No eye discharge. ENT: No runny nose. No epistaxis. No sinus pain. No odynophagia. No congestion. RESPIRATORY: Cough. No congestion. No hemoptysis. No shortness of breath. CARDIOVASCULAR: No angina symptoms. No CHF symptoms. No atypical chest pain for CAD. No palpitations. No orthopnea.. GASTROINTESTINAL: No abdominal pain. No nausea or vomiting. No diarrhea or constipation. No hematemesis. No hematochezia. GENITOURINARY: No urgency. No frequency. No dysuria. No hematuria. No obstructive symptoms. No discharge. No pain. No significant abnormal bleeding. MUSCULOSKELETAL: No musculoskeletal pain; no joint swelling. NEUROLOGICAL: Awake, alert, oriented to time, place and person. No headache. No neck pain. No syncope. No seizures. No dizziness. PSYCHIATRIC: Not anxious. No depression. No suicidal thoughts. No homicidal thoughts. SKIN: No rash. No lesions. No wounds. ENDOCRINE: No unexplained weight loss. No weight gain. HEMATOLOGIC/LYMPHATIC: No anemia. No purpura. No petechiae. No prolonged or excessive bleeding. No palpable lymph nodes. PHYSICAL EXAMINATION: GENERAL: The patient is awake, alert and oriented, sitting in bed in no distress. VITAL SIGNS: Temperature 98.0 F, Pulse 66, Respiratory Rate 16, BP 124/63, Pulse Ox 99% HEENT: Head normocephalic, atraumatic. Eyes: Extraocular muscles are intact. Pupils are equal, round and reactive to light and accommodation. Ears: No lesions. Nose appeared normal. Throat: No exudate or erythema. NECK: Supple. No JVD, no carotid bruit. No lymphadenopathy or thyromegaly. LUNGS: Severely diminished breath sounds. Clear to auscultation. Percussion note normal. Chest symmetrical. HEART: Irregular heart rate. S1, S2, no S3. No murmurs. No cyanosis or clubbing. No ascites. Pulses: Dorsalis pedis and posterior tibial pulses +1 to +2 both sides. ABDOMEN: Soft. Non-tender. Bowel sounds active. No CVA tenderness. No mass felt. EXTREMITIES: No edema. Full range of motion of all extremities, equal. NEUROLOGIC: No focal deficit. Cranial nerves II through XII are grossly intact. No headache, no double vision or headache. SKIN: Not dry. Intact. Turgor-normal. LYMPHATIC: No palpable lymph nodes/no lymphedema. MUSCULOSKELETAL: Normal joints with no swelling. Muscle tone is normal. LAB REVIEW: 10/10/17 05:25 10/10/17 05:25 10/10/17 06:30: Puncture Site R brach, O2 Saturation 93.0 L, ABG pH 7.513 H*, ABG pCO2 47.4 H, ABG pO2 60.0 L, ABG HCO3 38.1 H, ABG Total CO2 40 H, ABG Base Excess 15 H, Girma Test +, FiO2 % 21.0 10/10/17 05:25: Sodium 143, Potassium 3.7, Chloride 99, Carbon Dioxide 35 H, Anion Gap 12.7, BUN 17, Creatinine 0.64, Estimated GFR (MDRD) 87.00, BUN/ Creatinine Ratio 26.56, Glucose 83, Calcium 9.0, Total Bilirubin < 0.3, AST 15, ALT 13, Alkaline Phosphatase 64, Total Protein 6.2, Albumin 2.6 L, Globulin 3.6 , Albumin/Globulin Ratio 0.72 10/10/17 05:25: WBC 18.16 H, RBC 3.57 L, Hgb 10.8 L, Hct 32.5 L, MCV 91.0, MCH 30.3, MCHC 33.2, RDW Coeff of Sherri 13.0, Plt Count 414, Immature Gran % (Auto) 0.9, Neut % (Auto) 86.6, Lymph % (Auto) 7.2 L, [place] % (Auto) 5.0, Eos % (Auto) 0.1, Baso % (Auto) 0.2, Immature Gran # (Auto) 0.2, Neut # 15.8 H, Lymph # 1.3, [place] # 0.9, Eos # 0.0, Baso # 0.0 ASSESSMENT: 1. BILATERAL PNEUMONIA 2. SEVERE COPD, OXYGEN DEPENDENT 3. GENERALIZED WEAKNESS 4. PLEURITIC TYPE PAIN PLAN: 1. Zithromax 500 mg times three daysP.O. DAILY TIMES THREE DAYS not already ordered 2. Repeat chest x-ray Plan and coordination of the patient's care discussed in the presence of Double Bass Player and nurse. CONDITION: Stable SCRIBED BY: ZHANNA RICHARD Grating Machine Operator scribed while in presence of service performed by Dr. Gupta/Patito Rodriguez APRN on 10/10/17 ([id number])
[2017-10-10] MEDS: LIDOCAINE HCL 1% SDV IM SCH (10:15)
[2017-10-10] MEDS: BETA CAROTENE VITS C E PO SCH ×2 (10:18→20:26)
[2017-10-10] MEDS: MINS PO SCH ×2 (10:18→20:26)
[2017-10-10] MEDS: ROCEPHIN IM SCH (10:19)
[2017-10-10] MEDS ORDERED: LIDOCAINE 2% 2ML SDV INJ SCH (10:30)
--- NOTE | 2017-10-10 11:58 | DI ---
EXAM: Two views of the chest. History: Cough and congestion. Comparison: Chest radiograph 06/13/2017, chest CT 10/07/2017 Findings: Heart is borderline enlarged. Emphysema again noted. The patchy bibasilar lung infiltrate s appear improved. No appreciable pleural fluid and no pneumothorax. Atherosclerotic vascular calci fications. Stent seen within the abdominal aorta. No acute osseous abnormalities. Impression: Persistent but improving patchy bilateral lung infiltrates
[2017-10-10] MEDS: ZOCOR PO SCH (17:12)
[2017-10-10] MEDS: LEXAPRO PO SCH (17:12)
[2017-10-10] MEDS: NORVASC PO SCH (20:39)
[2017-10-10] MEDS: THEO-DUR PO SCH (20:39)
[2017-10-10] MEDS: NORCO 5-325 PO PRN (23:12)
[2017-10-11] MEDS: XOPENEX 1.25 MG NEB SCH ×5 (01:05→23:07)
[2017-10-11] MEDS: PROTONIX PO SCH (05:30)
[2017-10-11] MEDS: LASIX TAB PO SCH (05:31)
[2017-10-11] MEDS: SYMBICORT 160-4.5 MCG INHALER IH SCH ×2 (08:12→21:36)
[2017-10-11] MEDS: PROAIR HFA IH SCH ×2 (08:12→21:37)
[2017-10-11] MEDS: ATARAX PO SCH ×2 (08:13→21:36)
[2017-10-11] MEDS: BETA CAROTENE VITS C E PO SCH ×2 (08:14→21:37)
[2017-10-11] MEDS: FERROUS SULFATE PO SCH (08:14)
[2017-10-11] MEDS: CALCIUM 500 + VIT D 200 MG TABLET PO SCH (08:14)
[2017-10-11] MEDS: MINS PO SCH ×2 (08:14→21:37)
[2017-10-11] MEDS: XANAX PO SCH ×3 (08:15→21:35)
[2017-10-11] MEDS: NEURONTIN PO SCH ×2 (08:15→21:36)
[2017-10-11] MEDS: K-DUR PO SCH (08:15)
[2017-10-11] MEDS: ZANAFLEX PO SCH ×2 (08:23→21:36)
[2017-10-11] MEDS: ZITHROMAX PO SCH (08:24)
[2017-10-11] MEDS: DECADRON 4 MG/ML SDV IM SCH (08:26)
[2017-10-11] MEDS: ROCEPHIN IM SCH (08:28)
[2017-10-11] MEDS: LIDOCAINE HCL 1% SDV IM SCH (08:29)
[2017-10-11] MEDS: NORCO 5-325 PO PRN ×2 (11:36→21:35)
[2017-10-11] MEDS ORDERED: TORADOL IM STA (11:46)
--- NOTE | 2017-10-11 12:49 | PCM.PROG ---
Attending Provider: ATTENDING PROVIDER: Dr. KELI GUPTA This patient is seen with Patito Rodriguez, Nurse Practitioner. DATE OF SERVICE: 10/11/17 SUBJECTIVE: This 87 year old WHITE/ F was hospitalized 10/07/17. Sitting in chair , alert. The patient states she has been feeling well. She is ready to go home. REVIEW OF SYSTEMS: CONSTITUTIONAL: Weakness. No night sweats. No malaise, lethargy. No fever or chills. HEENT: Eyes: No visual changes. No eye pain. No eye discharge. ENT: No runny nose. No epistaxis. No sinus pain. No odynophagia. No congestion. RESPIRATORY: Cough. No hemoptysis. No shortness of breath. CARDIOVASCULAR: No angina symptoms. No CHF symptoms. No atypical chest pain for CAD. No palpitations. No orthopnea.. GASTROINTESTINAL: No abdominal pain. No nausea or vomiting. No diarrhea or constipation. No hematemesis. No hematochezia. GENITOURINARY: No urgency. No frequency. No dysuria. No hematuria. No obstructive symptoms. No discharge. No pain. No significant abnormal bleeding. MUSCULOSKELETAL: No musculoskeletal pain; no joint swelling. NEUROLOGICAL: Awake, alert, oriented to time, place and person. No headache. No neck pain. No syncope. No seizures. No dizziness. PSYCHIATRIC: Not anxious. No depression. No suicidal thoughts. No homicidal thoughts. SKIN: No rash. No lesions. No wounds. ENDOCRINE: No unexplained weight loss. No weight gain. HEMATOLOGIC/LYMPHATIC: No anemia. No purpura. No petechiae. No prolonged or excessive bleeding. No palpable lymph nodes. PHYSICAL EXAMINATION: GENERAL: The patient is awake, alert and oriented, lying in bed in no distress. VITAL SIGNS: Temperature 97.7 F, Pulse 66, Respiratory Rate 16, BP 128/61, Pulse Ox 99% HEENT: Head normocephalic, atraumatic. Eyes: Extraocular muscles are intact. Pupils are equal, round and reactive to light and accommodation. Ears: No lesions. Nose appeared normal. Throat: No exudate or erythema. NECK: Supple. No JVD, no carotid bruit. No lymphadenopathy or thyromegaly. LUNGS: Diminished breath sounds bilaterally. Clear to auscultation. Percussion note normal. Chest symmetrical. HEART: S1, S2, no S3. No murmurs. No cyanosis or clubbing. No ascites. Pulses: Dorsalis pedis and posterior tibial pulses +1 to +2 both sides. ABDOMEN: Soft. Non-tender. Bowel sounds active. No CVA tenderness. No mass felt. EXTREMITIES: No edema. Full range of motion of all extremities, equal. NEUROLOGIC: No focal deficit. Cranial nerves II through XII are grossly intact. No headache, no double vision or headache. SKIN: Not dry. Intact. Turgor-normal. LYMPHATIC: No palpable lymph nodes/no lymphedema. MUSCULOSKELETAL: Normal joints with no swelling. Muscle tone is normal. LAB REVIEW: 10/11/17 05:10 10/11/17 05:10 10/11/17 05:10: Sodium 142, Potassium 3.8, Chloride 100, Carbon Dioxide 36 H, Anion Gap 9.8, BUN 17, Creatinine 0.61, Estimated GFR (MDRD) 92.00, BUN/ Creatinine Ratio 27.86, Glucose 83, Calcium 8.7, Total Bilirubin < 0.3, AST 21, ALT 23, Alkaline Phosphatase 64, Total Protein 5.9, Albumin 2.6 L, Globulin 3.3 , Albumin/Globulin Ratio 0.79 10/11/17 05:10: WBC 11.83 H D, RBC 3.52 L, Hgb 10.6 L, Hct 32.3 L, MCV 91.8, MCH 30.1, MCHC 32.8, RDW Coeff of Sherri 13.2, Plt Count 368, Immature Gran % (Auto ) 2.2, Neut % (Auto) 79.7, Lymph % (Auto) 11.0, [place] % (Auto) 6.8, Eos % (Auto) 0.1, Baso % (Auto) 0.2, Immature Gran # (Auto) 0.3, Neut # 9.4 H, Lymph # 1.3, [place] # 0.8, Eos # 0.0, Baso # 0.0 ASSESSMENT: 1. BILATERAL PNEUMONIA 2. SEVERE COPD, OXYGEN DEPENDENT 3. GENERALIZED WEAKNESS 4. PLEURITIC TYPE PAIN PLAN: 1. D/C home 2. Prednisone 20 mg daily times five days 3. Will see next week in followup 4. Keflex 500 t.i.d. times 10 days 5. Finish Zithromax tomorrow will be 3rd day 6. Rocephin and Decadron before d/c today Plan and coordination of the patient's care discussed in the presence of Vineyardist and nurse. CONDITION: Stable SCRIBED BY: ZHANNA RICHARD Global Implementation Manager scribed while in presence of service performed by Dr. Gupta/Patito Rodriguez APRN on 10/11/17 ([id number])
--- NOTE | 2017-10-11 13:57 | PN ---
DATE OF SERVICE: 10/10/17 SUBJECTIVE: 87 year old white female admitted with pneumonia. The patient's condition has improved remarkably. PHYSICAL EXAMINATION: VITALS: Temperature 98, pulse 66, respiratory rate 16, blood pressure 124/60 and pulse ox 99%. HEENT: Head normocephalic, atraumatic. Eyes: Extraocular muscles are intact. Pupils are equal, round and reactive to light and accommodation. Ears: No lesions. Nose appeared normal. Throat: No exudate or erythema. NECK: Supple. No JVD, no carotid bruit. No lymphadenopathy or thyromegaly. LUNGS: Decreased breath sounds but clear to auscultation. Percussion note normal. Chest symmetrical. HEART: S1, S2, no S3. No murmurs. No cyanosis or clubbing. No ascites. Pulses: Dorsalis pedis and posterior tibial pulses +1 to +2 both sides. ABDOMEN: Soft. Nontender. Bowel sounds active. No CVA tenderness. No mass felt. EXTREMITIES: No edema. Full range of motion of all extremities, equal. NEUROLOGIC: No focal deficit. Cranial nerves II through XII are grossly intact. No headache, no double vision or headache. SKIN: Not dry. Intact. Turgor - normal. LYMPHATIC: No palpable lymph nodes/no lymphedema. MUSCULOSKELETAL: Normal joints with no swelling. Muscle tone is normal. ASSESSMENT: 1. Pneumonia seems to be resolving PLAN: 1. Z-Jamaal for three days 2. Will repeat the chest x-ray TIME SPENT: More than 30 minutes. Plan and coordination of the patient's care discussed in the presence of nurse. NAEL
[2017-10-11] MEDS ORDERED: NORCO 5-325 PO STA (14:39)
[2017-10-11] MEDS: LEXAPRO PO SCH (16:52)
[2017-10-11] MEDS: ZOCOR PO SCH (16:52)
[2017-10-11] MEDS: THEO-DUR PO SCH (21:35)
[2017-10-11] MEDS: NORVASC PO SCH (21:36)
[2017-10-12] MEDS: XOPENEX 1.25 MG NEB SCH ×4 (04:55→18:39)
[2017-10-12] MEDS: LASIX TAB PO SCH (05:55)
[2017-10-12] MEDS: PROTONIX PO SCH (05:55)
[2017-10-12] MEDS ORDERED: TORADOL IVP SCH (09:00)
[2017-10-12] MEDS: PROAIR HFA IH SCH ×2 (09:48→21:06)
[2017-10-12] MEDS: SYMBICORT 160-4.5 MCG INHALER IH SCH ×2 (09:48→21:06)
[2017-10-12] MEDS: LIDOCAINE HCL 1% SDV IM SCH (09:49)
[2017-10-12] MEDS: ROCEPHIN IM SCH (09:49)
[2017-10-12] MEDS: DECADRON 4 MG/ML SDV IM SCH (09:50)
[2017-10-12] MEDS: ATARAX PO SCH ×2 (09:50→21:06)
[2017-10-12] MEDS: ZANAFLEX PO SCH ×2 (09:50→21:07)
[2017-10-12] MEDS: K-DUR PO SCH (09:50)
[2017-10-12] MEDS: NEURONTIN PO SCH ×2 (09:50→21:07)
[2017-10-12] MEDS: BETA CAROTENE VITS C E PO SCH ×2 (09:51→21:08)
[2017-10-12] MEDS: MINS PO SCH ×2 (09:51→21:08)
[2017-10-12] MEDS: CALCIUM 500 + VIT D 200 MG TABLET PO SCH (09:51)
[2017-10-12] MEDS: XANAX PO SCH ×3 (09:51→21:06)
[2017-10-12] MEDS: FERROUS SULFATE PO SCH (09:51)
[2017-10-12] MEDS: ZITHROMAX PO SCH (09:52)
--- NOTE | 2017-10-12 09:54 | PCM.PROG ---
Attending Provider: ATTENDING PROVIDER: Dr. KELI GUPTA DATE OF SERVICE: 10/12/17 SUBJECTIVE: This 87 year old WHITE/ F was hospitalized 10/07/17 with pneumonia. Pneumonia has practically resolved clinically. She was to go home yesterday but developed chest pain, sharp going through to back. EKG revealed no changes. Cardiovascular status stable. REVIEW OF SYSTEMS: CONSTITUTIONAL: No night sweats. No fatigue, malaise, lethargy. No fever or chills. HEENT: Eyes: No visual changes. No eye pain. No eye discharge. ENT: No runny nose. No epistaxis. No sinus pain. No odynophagia. No congestion. RESPIRATORY: No cough, no congestion. No hemoptysis. No shortness of breath. CARDIOVASCULAR: No angina symptoms. No CHF symptoms. No atypical chest pain for CAD. No palpitations. No orthopnea.. GASTROINTESTINAL: No abdominal pain. No nausea or vomiting. No diarrhea or constipation. No hematemesis. No hematochezia. GENITOURINARY: No urgency. No frequency. No dysuria. No hematuria. No obstructive symptoms. No discharge. No pain. No significant abnormal bleeding. MUSCULOSKELETAL: No musculoskeletal pain; no joint swelling. NEUROLOGICAL: Awake, alert, oriented to time, place and person. No headache. No neck pain. No syncope. No seizures. No dizziness. PSYCHIATRIC: Not anxious. No depression. No suicidal thoughts. No homicidal thoughts. SKIN: No rash. No lesions. No wounds. ENDOCRINE: No unexplained weight loss. No weight gain. HEMATOLOGIC/LYMPHATIC: No anemia. No purpura. No petechiae. No prolonged or excessive bleeding. No palpable lymph nodes. PHYSICAL EXAMINATION: GENERAL: The patient is awake, alert and oriented, lying in bed in no distress. VITAL SIGNS: Temperature 98.3 F, Pulse 79, Respiratory Rate 24, BP 151/89, Pulse Ox 4% HEENT: Head normocephalic, atraumatic. Eyes: Extraocular muscles are intact. Pupils are equal, round and reactive to light and accommodation. Ears: No lesions. Nose appeared normal. Throat: No exudate or erythema. NECK: Supple. No JVD, no carotid bruit. No lymphadenopathy or thyromegaly. LUNGS: Decreased breath sounds. Clear to auscultation. Percussion note normal. Chest symmetrical. HEART: S1, S2, no S3. No murmurs. No cyanosis or clubbing. No ascites. Pulses: Dorsalis pedis and posterior tibial pulses +1 to +2 both sides. ABDOMEN: Soft. Non-tender. Bowel sounds active. No CVA tenderness. No mass felt. EXTREMITIES: No edema. Full range of motion of all extremities, equal. NEUROLOGIC: No focal deficit. Cranial nerves II through XII are grossly intact. No headache, no double vision or headache. SKIN: Warm and dry. Intact. Turgor-normal. LYMPHATIC: No palpable lymph nodes/no lymphedema. MUSCULOSKELETAL: Normal joints with no swelling. Muscle tone is normal. LAB REVIEW: 10/12/17 04:35 10/12/17 04:35 10/12/17 04:35: Sodium 142, Potassium 5.0, Chloride 99, Carbon Dioxide 37 H, Anion Gap 11.0, BUN 24 H, Creatinine 0.78, Estimated GFR (MDRD) 70.00, BUN/ Creatinine Ratio 30.76, Glucose 110, Calcium 8.9, Total Bilirubin < 0.3, AST 13 L, ALT 23, Alkaline Phosphatase 62, Total Protein 5.8, Albumin 2.6 L, Globulin 3.2, Albumin/Globulin Ratio 0.81 10/12/17 04:35: WBC 16.54 H, RBC 3.55 L, Hgb 10.7 L, Hct 32.8 L, MCV 92.4, MCH 30.1, MCHC 32.6, RDW Coeff of Sherri 13.3, Plt Count 362, Immature Gran % (Auto) 1.3, Neut % (Auto) 81.3, Lymph % (Auto) 9.6 L, [place] % (Auto) 7.6, Eos % (Auto) 0.1, Baso % (Auto) 0.1, Immature Gran # (Auto) 0.2, Neut # 13.4 H, Lymph # 1.6, [place] # 1.3, Eos # 0.0, Baso # 0.0 ASSESSMENT: 1. Pneumonia resolved 2. Chest pain atypical 3. History of CAD 4. Chronic lung disease 5. Anemia PLAN: 1. The patient still has chest pain with steady ache since yesterday, non cardiac, more musculoskeletal. With contiued pain and no change in EKG, will do cardiac markers, CK-MB and will observe. 2. Will give Toradol 30 mg q.8hr ANKITA 3. Continue Protonix. Plan and coordination of the patient's care discussed in the presence of Whipped Topping Finisher and nurse. CONDITION: Stable SCRIBED BY: ZHANNA RICHARD Natural Resource Economist scribed while in presence of service performed by Dr. KELI GUPTA on 10/12/17 ([id number])
[2017-10-12] MEDS: TORADOL IM SCH ×2 (12:56→21:51)
[2017-10-12] MEDS: NORCO 5-325 PO PRN ×2 (15:38→21:07)
[2017-10-12] MEDS: ZOCOR PO SCH (16:59)
[2017-10-12] MEDS: LEXAPRO PO SCH (16:59)
[2017-10-12] MEDS: THEO-DUR PO SCH (21:07)
[2017-10-12] MEDS: NORVASC PO SCH (21:07)
[2017-10-13] MEDS: XOPENEX 1.25 MG NEB SCH ×5 (00:05→23:00)
[2017-10-13] MEDS: TORADOL IM SCH ×3 (05:36→20:37)
[2017-10-13] MEDS: PROTONIX PO SCH (05:36)
[2017-10-13] MEDS: LASIX TAB PO SCH (05:36)
[2017-10-13] MEDS: SYMBICORT 160-4.5 MCG INHALER IH SCH ×2 (09:19→20:36)
[2017-10-13] MEDS: PROAIR HFA IH SCH ×2 (09:19→20:36)
[2017-10-13] MEDS: K-DUR PO SCH (09:20)
[2017-10-13] MEDS: XANAX PO SCH ×3 (09:20→20:35)
[2017-10-13] MEDS: NEURONTIN PO SCH ×2 (09:20→20:35)
[2017-10-13] MEDS: FERROUS SULFATE PO SCH (09:20)
[2017-10-13] MEDS: ATARAX PO SCH ×2 (09:20→20:34)
[2017-10-13] MEDS: ZANAFLEX PO SCH ×2 (09:20→20:35)
[2017-10-13] MEDS: KEFLEX PO SCH ×3 (09:20→20:35)
[2017-10-13] MEDS: CALCIUM 500 + VIT D 200 MG TABLET PO SCH (09:20)
[2017-10-13] MEDS: PREDNISONE PO SCH ×2 (09:21→16:29)
[2017-10-13] MEDS: BETA CAROTENE VITS C E PO SCH ×2 (09:22→20:36)
[2017-10-13] MEDS: MINS PO SCH ×2 (09:22→20:36)
[2017-10-13] MEDS: LIDOCAINE HCL 1% SDV IM SCH (09:24)
--- NOTE | 2017-10-13 09:56 | PCM.PROG ---
Attending Provider: ATTENDING PROVIDER: Dr. KELI GUPTA This patient is seen with Patito Rodriguez, Nurse Practitioner. DATE OF SERVICE: 10/13/17 SUBJECTIVE: This 87 year old WHITE/ F was hospitalized 10/07/17. The patient is lying in bed, alert. She still complains of atypical type chest pain and shortness of breath as usual. REVIEW OF SYSTEMS: CONSTITUTIONAL: No night sweats. No fatigue, malaise, lethargy. No fever or chills. HEENT: Eyes: No visual changes. No eye pain. No eye discharge. ENT: No runny nose. No epistaxis. No sinus pain. No odynophagia. No congestion. RESPIRATORY: Shortness of breath as usual. No cough, no congestion. No hemoptysis. CARDIOVASCULAR: No angina symptoms. No CHF symptoms. Atypical chest pain for CAD. No palpitations. No orthopnea.. GASTROINTESTINAL: No abdominal pain. No nausea or vomiting. No diarrhea or constipation. No hematemesis. No hematochezia. GENITOURINARY: No urgency. No frequency. No dysuria. No hematuria. No obstructive symptoms. No discharge. No pain. No significant abnormal bleeding. MUSCULOSKELETAL: No musculoskeletal pain; no joint swelling. NEUROLOGICAL: Awake, alert, oriented to time, place and person. No headache. No neck pain. No syncope. No seizures. No dizziness. PSYCHIATRIC: Not anxious. No depression. No suicidal thoughts. No homicidal thoughts. SKIN: No rash. No lesions. No wounds. ENDOCRINE: No unexplained weight loss. No weight gain. HEMATOLOGIC/LYMPHATIC: No anemia. No purpura. No petechiae. No prolonged or excessive bleeding. No palpable lymph nodes. PHYSICAL EXAMINATION: GENERAL: The patient is awake, alert and oriented, lying/sitting in bed in no distress. VITAL SIGNS: Temperature 97.9 F, Pulse 69, Respiratory Rate 16, BP 148/53, Pulse Ox 98% HEENT: Head normocephalic, atraumatic. Eyes: Extraocular muscles are intact. Pupils are equal, round and reactive to light and accommodation. Ears: No lesions. Nose appeared normal. Throat: No exudate or erythema. NECK: Supple. No JVD, no carotid bruit. No lymphadenopathy or thyromegaly. LUNGS: Diminished breath sounds bilaterally. Clear to auscultation. Percussion note normal. Chest symmetrical. HEART: S1, S2, no S3. No murmurs. No cyanosis or clubbing. No ascites. Pulses: Dorsalis pedis and posterior tibial pulses +1 to +2 both sides. ABDOMEN: Soft. Non-tender. Bowel sounds active. No CVA tenderness. No mass felt. EXTREMITIES: No edema. Full range of motion of all extremities, equal. NEUROLOGIC: No focal deficit. Cranial nerves II through XII are grossly intact. No headache, no double vision or headache. SKIN: Not dry. Intact. Turgor-normal. LYMPHATIC: No palpable lymph nodes/no lymphedema. MUSCULOSKELETAL: Normal joints with no swelling. Muscle tone is normal. LAB REVIEW: 10/13/17 04:30 10/13/17 04:30 10/13/17 04:30: Sodium 140, Potassium 4.5, Chloride 98, Carbon Dioxide 34 H, Anion Gap 12.5, BUN 32 H, Creatinine 0.71, Estimated GFR (MDRD) 78.00, BUN/ Creatinine Ratio 45.07, Glucose 94, Calcium 9.0, Total Bilirubin 0.3, AST 12 L, ALT 19, Alkaline Phosphatase 66, Total Protein 6.1, Albumin 2.7 L, Globulin 3.4 , Albumin/Globulin Ratio 0.79 10/13/17 04:30: WBC 25.27 H D, RBC 3.76 L, Hgb 11.3 L, Hct 34.4 L, MCV 91.5, MCH 30.1, MCHC 32.8, RDW Coeff of Sherri 13.2, Plt Count 378, Immature Gran % (Auto ) 1.0, Neut % (Auto) 88.3, Lymph % (Auto) 4.8 L, [place] % (Auto) 5.7, Eos % (Auto ) 0.0, Baso % (Auto) 0.2, Immature Gran # (Auto) 0.3, Neut # 22.3 H, Lymph # 1.2 , [place] # 1.4, Eos # 0.0, Baso # 0.0 10/12/17 09:18: Total Creatine Kinase 18, Troponin I 0.0230 ASSESSMENT: 1. Pneumonia resolved 2. Chest pain atypical, noncardiac 3. History of CAD 4. Chronic lung disease 5. Anemia PLAN: 1. Have patient up in room today. 2. Keflex 500 mg t.i.d. for five days 3. Discharge home. 4. Prednisone 20 b.i.d. for 2 days then 10 b.i.d.for 5 days Plan and coordination of the patient's care discussed in the presence of Band Reamer Machine Operator and nurse. CONDITION: Stable SCRIBED BY: ZHANNA RICHARD Wet Washer Machine scribed while in presence of service performed by Dr. Gupta/Patito Rodriguez APRN on 10/13/17 ([id number])
--- NOTE | 2017-10-13 10:39 | PN ---
DATE OF SERVICE: 10/11/17 SUBJECTIVE: 87 year old white female hospitalized with pneumonia. The patient's pneumonia was treated with antibiotics. She has improved remarkably. The patient was discharged home but she developed severe chest pain go through to the back. She had this type of pain before. She usually says that this type of pain responds to [place] two tablets. She was given [place] along with Toradol. It was done with no acute changes. CONDITION: Stable The patient was seen and examined with Nurse Practitioner, we will discharge her tomorrow. TIME SPENT: More than 30 minutes. Plan and coordination of the patient's care discussed in the presence of nurse. NAEL
--- NOTE | 2017-10-13 12:54 | HP ---
DATE OF SERVICE: 10/08/17 REASON FOR HOSPITALIZATION: Pneumonia. HISTORY OF PRESENT ILLNESS: 87-year-old white female was brought to the emergency room with complaint of being short of breath, weakness and with mild cough. According to the family, they suspected pneumonia. Further investigation done in the emergency room was CT of the chest which showed bilateral pneumonia. The patient has severe chronic lung disease, history of coronary artery disease. REVIEW OF SYSTEMS: CONSTITUTIONAL: Weakness. No night sweats. No malaise, lethargy. No fever or chills. HEENT: Eyes: No visual changes. No eye pain. No eye discharge. ENT: No runny nose. No epistaxis. No sinus pain. No sore throat. No odynophagia. No congestion. No PND. RESPIRATORY: Mild cough and congestion. No hemoptysis. Shortness of breath on exertion. No PND. CARDIOVASCULAR: No angina symptoms. No CHF symptoms. No atypical chest pain for CAD. No palpitations. No orthopnea. GASTROINTESTINAL: Appetite not good for the past couple of days. No abdominal pain. No nausea or vomiting. No diarrhea or constipation. No hematemesis. No hematochezia. GENITOURINARY: No urgency. No frequency. No dysuria. No hematuria. No obstructive symptoms. No discharge. No pain. No significant abnormal bleeding. MUSCULOSKELETAL: No musculoskeletal pain; no joint swelling. NEUROLOGICAL: No headache. No neck pain. No syncope. No seizures. No dizziness. PSYCHIATRIC: Not anxious. No depression. No suicidal thoughts. No homicidal thoughts. SKIN: No rash. No lesions. No wounds. ENDOCRINE: No unexplained weight loss. No weight gain. HEMATOLOGIC/LYMPHATIC: No anemia. No purpura. No petechiae. No prolonged or excessive bleeding. No palpable lymph nodes. ALLERGIES: CLINDAMYCIN, PENICILLIN PERSONAL/FAMILY/SOCIAL HISTORY: The patient is , lives by herself. Nonsmoker. No alcohol abuse. The patient is being helped by the daughter. She does not do most activity of daily living. The patient wants DNR. The patient is mostly oriented to person and place. MEDICATIONS: Gabapentin 100 mg p.o. b.i.d. Theophylline 300 mg p.o. at bedtime Xanax 0.25 mg t.i.d. K-Dur 20 mEq p.o. daily Protonix 40 mg p.o. daily Tizanidine 4 mg p.o. twice a day Furosemide 20 mg p.o. daily Hydrocodone 5 mg three times a day Albuterol inhaler two puffs twice a day Amlodipine 5 mg p.o. at bedtime Symbicort 160/4.5 mg two inhalations twice a day Lexapro 10 mg p.o. daily Duoneb nebs q.i.d. Simvastatin 40 mg p.o. daily Hydroxyzine (Atarax) 25 mg p.o. twice a day PHYSICAL EXAMINATION: GENERAL: Looks somewhat pale. Skin dry. Mucous membrane dry. V/S: Temperature 98.4, pulse 100/min, respiratory rate 15, BP 130/70, pulse ox 91% with 2L. HEENT: Head normocephalic, atraumatic. Eyes: Extraocular muscles are intact. Pupils are equal, round and reactive to light and accommodation. Ears: No lesions. Nose appeared normal. Throat: No exudate or erythema. NECK: Supple. No JVD, no carotid bruit. No lymphadenopathy or thyromegaly. LUNGS: Decreased breath sounds with mild wheeze bilaterally. Percussion note normal. Chest symmetrical. HEART: PMI 5th intercostal space, mid clavicular line. S1, S2, no S3. Grade I/ systolic murmur.. No cyanosis or clubbing. No ascites. Pulses: Dorsalis pedis and posterior tibial pulses +1 bilaterally. ABDOMEN: Soft. Nontender. Bowel sounds active. No CVA tenderness. No mass felt. EXTREMITIES: No pedal edema. Full range of motion of all extremities, equal. DIRECTOR OF CASEWORK SERVICES: Mental status seems to be normal. Moving all her extremities. Deep tendon reflexes, motor, sensory normal. No rash, no lymphadenopathy. SKIN: Dry. Intact. Turgor - normal. LYMPHATIC: No palpable lymph nodes/no lymphedema. MUSCULOSKELETAL: Normal joints with no swelling. Muscle tone is normal. LABS: Hemoglobin 10.9, hematocrit 32, WBC 10,000, normal differential. Creatinine 0.6 , BUN 10. CT scan of the chest shows bilateral pneumonia. ASSESSMENT: 1. BILATERAL PNEUMONIA WITH SEVERE CHRONIC LUNG DISEASE 2. CORONARY ARTERY DISEASE WITH STENT 3. DYSLIPIDEMIA 4. ANEMIA 5. GENERALIZED SEVERE OSTEOARTHRITIS PLAN: 1. IV antibiotics, Rocephin 1 gm 2. Solu-Cortef 125 mg q.8 3. Nebs treatment with Pulmicort twice a day 4. Xopenex q.6 5. Telemetry 6. EKG 7. Encourage the patient to eat CONDITION: Stable TIME SPENT: More than 30 minutes. Plan and coordination of the patient's care discussed in the presence of nurse. NAEL
--- NOTE | 2017-10-13 12:56 | PN ---
DATE OF SERVICE: 10/08/2017 SUBJECTIVE: 87-year-old white female hospitalized with pneumonia. The patient was brought to the emergency room with mild cough and weakness. CT scan of the chest showed bilateral pneumonia. The patient has shown a lot of improvement. According to her she is feeling better, breathing better and doesn't have any cough or congestion. REVIEW OF SYSTEMS: CONSTITUTIONAL: No night sweats. No fatigue, malaise, lethargy. No fever or chills. HEENT: Eyes: No visual changes. No eye pain. No eye discharge. ENT: No runny nose. No epistaxis. No sinus pain. No sore throat. No odynophagia. No congestion. No PND. RESPIRATORY: No cough, no congestion. No hemoptysis. No shortness of breath. CARDIOVASCULAR: No angina symptoms. No CHF symptoms. No atypical chest pain for CAD. No palpitations. No orthopnea. GASTROINTESTINAL: No abdominal pain. No nausea or vomiting. No diarrhea or constipation. No hematemesis. No hematochezia. GENITOURINARY: No urgency. No frequency. No dysuria. No hematuria. No obstructive symptoms. No discharge. No pain. No significant abnormal bleeding. MUSCULOSKELETAL: No musculoskeletal pain; no joint swelling. NEUROLOGICAL: No headache. No neck pain. No syncope. No seizures. No dizziness. PSYCHIATRIC: Not anxious. No depression. No suicidal thoughts. No homicidal thoughts. SKIN: No rash. No lesions. No wounds. ENDOCRINE: No unexplained weight loss. No weight gain. HEMATOLOGIC/LYMPHATIC: No anemia. No purpura. No petechiae. No prolonged or excessive bleeding. No palpable lymph nodes. PHYSICAL EXAMINATION: HEENT: Head normocephalic, atraumatic. Eyes: Extraocular muscles are intact. Pupils are equal, round and reactive to light and accommodation. Ears: No lesions. Nose appeared normal. Throat: No exudate or erythema. NECK: Supple. No JVD, no carotid bruit. No lymphadenopathy or thyromegaly. LUNGS: Decreased breath sounds with mild wheeze. Percussion note normal. Chest symmetrical. HEART: S1, S2, no S3. No murmurs. No cyanosis or clubbing. No ascites. Pulses: Dorsalis pedis and posterior tibial pulses +1 to +2 both sides. ABDOMEN: Soft. Nontender. Bowel sounds active. No CVA tenderness. No mass felt. EXTREMITIES: No edema. Full range of motion of all extremities, equal. NEUROLOGIC: No focal deficit. Cranial nerves II through XII are grossly intact. No headache, no double vision or headache. SKIN: Not dry. Intact. Turgor - normal. LYMPHATIC: No palpable lymph nodes/no lymphedema. MUSCULOSKELETAL: Normal joints with no swelling. Muscle tone is normal. LABS: Hemoglobin 10.9, hematocrit 32, WBC 10,000, normal differential. Creatinine 0.6 , BUN 10. ASSESSMENT: 1. PNEUMONIA SEEMS TO BE IMPROVING CLINICALLY WITH IMPROVEMENT IN OXYGEN SATURATION ALONG WITH IMPROVEMENT IN HYDRATION. 2. CARDIOVASCULAR STATUS IS STABLE. 3. SHE HAS HISTORY OF CORONARY ARTERY DISEASE WITH STENT. PLAN: 1. The patient is on steroids, nebs treatment and antibiotics. Continue the same treatment. TIME SPENT: More than 30 minutes. Plan and coordination of the patient's care discussed in the presence of nurse. NAEL
--- NOTE | 2017-10-13 13:40 | PN ---
DATE OF SERVICE: 10/09/17 SUBJECTIVE: 87-year-old white female hospitalized with pneumonia. The patient's condition has steadily improved. She is feeling a lot better. She is talking about alot of other things. No cough, no congestion. REVIEW OF SYSTEMS: CONSTITUTIONAL: No night sweats. No fatigue, malaise, lethargy. No fever or chills. HEENT: Eyes: No visual changes. No eye pain. No eye discharge. ENT: No runny nose. No epistaxis. No sinus pain. No sore throat. No odynophagia. No congestion. RESPIRATORY: No cough, no congestion. No hemoptysis. No shortness of breath. CARDIOVASCULAR: No angina symptoms. No CHF symptoms. No atypical chest pain for CAD. No palpitations. No orthopnea. GASTROINTESTINAL: No abdominal pain. No nausea or vomiting. No diarrhea or constipation. No hematemesis. No hematochezia. GENITOURINARY: No urgency. No frequency. No dysuria. No hematuria. No obstructive symptoms. No discharge. No pain. No significant abnormal bleeding. MUSCULOSKELETAL: No musculoskeletal pain; no joint swelling. NEUROLOGICAL: No headache. No neck pain. No syncope. No seizures. No dizziness. PSYCHIATRIC: Not anxious. No depression. No suicidal thoughts. No homicidal thoughts. SKIN: No rash. No lesions. No wounds. ENDOCRINE: No unexplained weight loss. No weight gain. HEMATOLOGIC/LYMPHATIC: No anemia. No purpura. No petechiae. No prolonged or excessive bleeding. No palpable lymph nodes. PHYSICAL EXAMINATION: GENERAL: The patient is oriented to time, place and person. VITAL SIGNS: Temperature 97.7, pulse 75, respiratory rate 18, BP 138/69, pulse ox 96%. HEENT: Head normocephalic, atraumatic. Eyes: Extraocular muscles are intact. Pupils are equal, round and reactive to light and accommodation. Ears: No lesions. Nose appeared normal. Throat: No exudate or erythema. NECK: Supple. No JVD, no carotid bruit. No lymphadenopathy or thyromegaly. LUNGS: Decreased breath sounds but clear to auscultation. Percussion note normal. Chest symmetrical. HEART: S1, S2, no S3. No murmurs. No cyanosis or clubbing. No ascites. Pulses: Dorsalis pedis and posterior tibial pulses +1 to +2 both sides. ABDOMEN: Soft. Nontender. Bowel sounds active. No CVA tenderness. No mass felt. EXTREMITIES: No edema. Full range of motion of all extremities, equal. NEUROLOGIC: No focal deficit. Cranial nerves II through XII are grossly intact. No headache, no double vision or headache. SKIN: Not dry. Intact. Turgor - normal. LYMPHATIC: No palpable lymph nodes/no lymphedema. MUSCULOSKELETAL: Normal joints with no swelling. Muscle tone is normal. ASSESSMENT: 1. PNEUMONIA SEEMS TO BE CLINICALLY RESOLVING 2. CARDIOVASCULAR SYSTEM STABLE 3. COPD STABLE PLAN: 1. D/C IV fluids 2. ABG in the morning 3. Chest x-ray in the morning 4. Continue antibiotics, steroids and nebs treatment TIME SPENT: More than 30 minutes. Plan and coordination of the patient's care discussed in the presence of nurse. NAEL
[2017-10-13] MEDS ORDERED: GI COCKTAIL PO STA (14:02)
[2017-10-13] MEDS: NORCO 5-325 PO PRN ×2 (15:09→20:37)
[2017-10-13] MEDS: LEXAPRO PO SCH (16:27)
[2017-10-13] MEDS: ZOCOR PO SCH (16:28)
[2017-10-13] MEDS ORDERED: LOMOTIL PO PRN (16:53)
[2017-10-13] MEDS ORDERED: TORADOL IM STA (16:54)
[2017-10-13] MEDS: NORVASC PO SCH (20:34)
[2017-10-13] MEDS: THEO-DUR PO SCH (20:35)
[2017-10-14] MEDS: TORADOL IM SCH ×2 (04:13→13:52)
[2017-10-14] MEDS: XOPENEX 1.25 MG NEB SCH ×4 (05:08→23:30)
[2017-10-14] MEDS: PROTONIX PO SCH (05:41)
[2017-10-14] MEDS: LASIX TAB PO SCH (05:41)
[2017-10-14] MEDS ORDERED: ZOFRAN 4 MG/2 ML IVP PRN (07:57)
[2017-10-14] MEDS ORDERED: MORPHINE 2 MG/ML SYRINGE IVP PRN (10:05)
[2017-10-14] MEDS ORDERED: CARAFATE PO SCH (11:00)
--- NOTE | 2017-10-14 11:05 | PCM.PROG ---
Attending Provider: ATTENDING PROVIDER: Dr. KELI GUPTA This patient is seen with Patito Rodriguez, Nurse Practitioner. DATE OF SERVICE: 10/14/17 SUBJECTIVE: This 87 year old WHITE/ F was hospitalized 10/07/17. The patient is lying in bed, alert. Complaining of abdominal pain and nausea. She did sleep last night. REVIEW OF SYSTEMS: CONSTITUTIONAL: Weakness. No night sweats. No malaise, lethargy. No fever or chills. HEENT: Eyes: No visual changes. No eye pain. No eye discharge. ENT: No runny nose. No epistaxis. No sinus pain. No odynophagia. No congestion. RESPIRATORY: No cough, no congestion. No hemoptysis. No shortness of breath. CARDIOVASCULAR: No angina symptoms. No CHF symptoms. No atypical chest pain for CAD. No palpitations. No orthopnea.. GASTROINTESTINAL: Abdominal pain, nausea. No vomiting. No diarrhea or constipation. No hematemesis. No hematochezia. GENITOURINARY: No urgency. No frequency. No dysuria. No hematuria. No obstructive symptoms. No discharge. No pain. No significant abnormal bleeding. MUSCULOSKELETAL: Back pain. NEUROLOGICAL: Awake, alert, oriented to person and place. No headache. No neck pain. No syncope. No seizures. No dizziness. PSYCHIATRIC: Not anxious. No depression. No suicidal thoughts. No homicidal thoughts. SKIN: No rash. No lesions. No wounds. ENDOCRINE: No unexplained weight loss. No weight gain. HEMATOLOGIC/LYMPHATIC: No anemia. No purpura. No petechiae. No prolonged or excessive bleeding. No palpable lymph nodes. PHYSICAL EXAMINATION: GENERAL: The patient is awake, alert and oriented, lying in bed in no distress. VITAL SIGNS: Temperature 97.9 F, Pulse 67, Respiratory Rate 18, BP 134/77, Pulse Ox 96% HEENT: Head normocephalic, atraumatic. Eyes: Extraocular muscles are intact. Pupils are equal, round and reactive to light and accommodation. Ears: No lesions. Nose appeared normal. Throat: No exudate or erythema. NECK: Supple. No JVD, no carotid bruit. No lymphadenopathy or thyromegaly. LUNGS: Diminished breath sounds. Clear to auscultation. Percussion note normal. Chest symmetrical. HEART: S1, S2, no S3. No murmurs. No cyanosis or clubbing. No ascites. Pulses: Dorsalis pedis and posterior tibial pulses +1 to +2 both sides. ABDOMEN: Soft. Generalized abdominal tenderness. No guarding. Bowel sounds active. No CVA tenderness. No mass felt. EXTREMITIES: No edema. Full range of motion of all extremities, equal. NEUROLOGIC: No focal deficit. Cranial nerves II through XII are grossly intact. No headache, no double vision or headache. SKIN: Not dry. Intact. Turgor-normal. LYMPHATIC: No palpable lymph nodes/no lymphedema. MUSCULOSKELETAL: Normal joints with no swelling. Muscle tone is normal. LAB REVIEW: 10/14/17 05:10 10/14/17 05:10 10/14/17 05:10: Sodium 140, Potassium 5.3 H, Chloride 96 L, Carbon Dioxide 31, Anion Gap 18.3, BUN 45 H, Creatinine 0.91, Estimated GFR (MDRD) 58.00, BUN/ Creatinine Ratio 49.45, Glucose 132 H, Calcium 9.9, Total Bilirubin 0.5, AST 11 L, ALT 18, Alkaline Phosphatase 88, Total Protein 7.2, Albumin 3.0 L, Globulin 4.2, Albumin/Globulin Ratio 0.71 10/14/17 05:10: WBC 43.31 H D, RBC 4.11 L, Hgb 12.4, Hct 37.2, MCV 90.5, MCH 30.2, MCHC 33.3, RDW Coeff of Sherri 13.3, Plt Count 461 H, Neutrophils % (Manual) 97.0 H, Lymphocytes % (Manual) 2.0 L, Monocytes % (Manual) 1.0, Anisocytosis Not present ASSESSMENT: Abdominal pain, nausea Pneumonia resolved Chest pain atypical, noncardiac History of CAD Chronic lung disease Anemia PLAN: CT abdomen and pelvis without Repeat chest x-ray Zofran 4 mg IV STAT and q.6hr p.r.n. Repeat UA Hold potassium today Plan and coordination of the patient's care discussed in the presence of Folding Machine Operator and nurse. CONDITION: Stable SCRIBED BY: ZHANNA RICHARD Psychiatric Security Nurse scribed while in presence of service performed by Dr. Gupta/Patito Rodriguez APRN on 10/14/17 ([id number])
--- NOTE | 2017-10-14 11:10 | CT ---
EXAM: CT of the abdomen pelvis without contrast History: Abdominal pain. Comparison: CT abdomen pelvis 09/27/2016 Technique: Multiplanar CT images through the abdomen pelvis were obtained without the administration of IV contrast Findings: Subsegmental atelectasis again seen within the lower lungs. Visualized osseous structures unchanged with no acute osseous abnormalities identified. Hardware again seen within the left hip. Osteopenia. Bifurcating aortic stent graft is stable in appearance. No focal liver or splenic lesions. Adrenal glands are unremarkable. No peripancreatic inflammation. No renal stones and no hydronephrosis. Po stsurgical changes of the bowel. Uterus is not seen. No bladder wall thickening. Colonic diverticulo sis. There is focal mesenteric edema within the lower abdomen with small amount of a lower abdominal and pelvic fluid. The loops of bowel within the lower abdomen demonstrate wall thickening and mild distension. Impression: 1. Probable enteritis of the bowel within the lower abdomen and pelvis with associated mesenteric ed elvi and small amount of surrounding fluid. Early partial small bowel obstruction is not excluded. I f symptoms worsen or persist, consider correlation with IV contrast enhanced study. 2. Colonic diverticulosis.
[2017-10-14] MEDS: PROTONIX IV IVP SCH (11:41)
[2017-10-14] MEDS: DEXTROSE 5%-1/2NS IV SOLUTION 1,000 ML IV SCH (11:42)
[2017-10-14] MEDS: BETA CAROTENE VITS C E PO SCH ×2 (12:30→20:15)
[2017-10-14] MEDS: CALCIUM 500 + VIT D 200 MG TABLET PO SCH (12:30)
[2017-10-14] MEDS: MINS PO SCH ×2 (12:30→20:15)
[2017-10-14] MEDS: ATARAX PO SCH ×2 (12:30→20:15)
[2017-10-14] MEDS: FERROUS SULFATE PO SCH (12:31)
[2017-10-14] MEDS: CARAFATE PO SCH ×3 (12:31→20:15)
[2017-10-14] MEDS: KEFLEX PO SCH (12:31)
[2017-10-14] MEDS: SYMBICORT 160-4.5 MCG INHALER IH SCH ×2 (12:32→20:20)
[2017-10-14] MEDS: NEURONTIN PO SCH ×2 (12:32→20:15)
[2017-10-14] MEDS: PROAIR HFA IH SCH ×2 (12:32→20:20)
[2017-10-14] MEDS: XANAX PO SCH ×3 (12:32→20:16)
[2017-10-14] MEDS: PREDNISONE PO SCH (12:32)
[2017-10-14] MEDS: ZANAFLEX PO SCH ×2 (12:33→20:16)
[2017-10-14] MEDS: ZOFRAN 4 MG/2 ML IVP SCH ×3 (13:43→20:21)
[2017-10-14] MEDS: FLAGYL 500 MG/100 ML 500 MG in PREMIX 100 ML NS 1 BAG IV SCH ×2 (13:43→20:21)
[2017-10-14] MEDS: MORPHINE 2 MG/ML SYRINGE IVP PRN ×5 (13:51→23:19)
[2017-10-14] MEDS: TORADOL IVP SCH ×2 (13:51→20:21)
[2017-10-14] MEDS: ZOCOR PO SCH (16:18)
[2017-10-14] MEDS: LEXAPRO PO SCH (17:22)
[2017-10-14] MEDS: NORVASC PO SCH (20:15)
[2017-10-14] MEDS: THEO-DUR PO SCH (20:16)
[2017-10-15] MEDS: ZOFRAN 4 MG/2 ML IVP SCH ×6 (01:27→21:45)
[2017-10-15] MEDS: MORPHINE 2 MG/ML SYRINGE IVP PRN ×5 (01:27→21:43)
[2017-10-15] MEDS: TORADOL IVP SCH ×3 (04:10→21:40)
[2017-10-15] MEDS: FLAGYL 500 MG/100 ML 500 MG in PREMIX 100 ML NS 1 BAG IV SCH ×3 (04:11→21:40)
[2017-10-15] MEDS: XOPENEX 1.25 MG NEB SCH ×4 (04:48→23:06)
[2017-10-15] MEDS: LASIX TAB PO SCH ×2 (05:34→05:41)
[2017-10-15] MEDS: CARAFATE PO SCH ×3 (05:34→14:05)
[2017-10-15] MEDS: DECADRON 4 MG/ML SDV IM SCH (08:54)
[2017-10-15] MEDS: MINS PO SCH (08:55)
[2017-10-15] MEDS: CALCIUM 500 + VIT D 200 MG TABLET PO SCH (08:55)
[2017-10-15] MEDS: ATARAX PO SCH (08:55)
[2017-10-15] MEDS: BETA CAROTENE VITS C E PO SCH (08:55)
[2017-10-15] MEDS: PROAIR HFA IH SCH ×2 (08:56→21:39)
[2017-10-15] MEDS: FERROUS SULFATE PO SCH (08:56)
[2017-10-15] MEDS: NEURONTIN PO SCH (08:56)
[2017-10-15] MEDS: ZANAFLEX PO SCH (08:57)
[2017-10-15] MEDS: SYMBICORT 160-4.5 MCG INHALER IH SCH ×2 (08:57→21:39)
[2017-10-15] MEDS: XANAX PO SCH (08:57)
[2017-10-15] MEDS: PROTONIX IV IVP SCH (10:00)
[2017-10-15] MEDS: DEXTROSE 5%-1/2NS IV SOLUTION 1,000 ML IV SCH ×2 (14:07→14:25)
[2017-10-15] MEDS ORDERED: COREG ONE (15:33)
[2017-10-15] MEDS: COREG PO SCH (16:32)
[2017-10-16] MEDS: ZOFRAN 4 MG/2 ML IVP SCH ×6 (00:09→21:52)
[2017-10-16] MEDS: MORPHINE 2 MG/ML SYRINGE IVP PRN ×3 (00:09→17:38)
[2017-10-16] MEDS: FLAGYL 500 MG/100 ML 500 MG in PREMIX 100 ML NS 1 BAG IV SCH ×3 (04:25→20:18)
[2017-10-16] MEDS: TORADOL IVP SCH ×3 (04:26→21:56)
[2017-10-16] MEDS: XOPENEX 1.25 MG NEB SCH ×4 (04:40→23:10)
[2017-10-16] MEDS: DEXTROSE 5%-1/2NS IV SOLUTION 1,000 ML IV SCH ×2 (04:56→19:40)
[2017-10-16] MEDS: SYMBICORT 160-4.5 MCG INHALER IH SCH ×2 (09:22→20:18)
[2017-10-16] MEDS: PROTONIX IV IVP SCH (09:22)
[2017-10-16] MEDS: PROAIR HFA IH SCH ×2 (09:22→20:18)
[2017-10-16] MEDS: DECADRON 4 MG/ML SDV IM SCH (09:22)
[2017-10-16] MEDS: COREG PO SCH ×2 (09:23→16:39)
[2017-10-17] MEDS: MORPHINE 2 MG/ML SYRINGE IVP PRN ×3 (01:12→14:00)
[2017-10-17] MEDS: ZOFRAN 4 MG/2 ML IVP SCH ×4 (01:12→12:52)
[2017-10-17] MEDS: FLAGYL 500 MG/100 ML 500 MG in PREMIX 100 ML NS 1 BAG IV SCH ×2 (04:26→12:52)
[2017-10-17] MEDS: TORADOL IVP SCH ×2 (04:27→12:52)
[2017-10-17] MEDS: XOPENEX 1.25 MG NEB SCH ×2 (04:48→11:24)
[2017-10-17] MEDS: PROTONIX IV IVP SCH (08:07)
[2017-10-17] MEDS: DECADRON 4 MG/ML SDV IM SCH (08:45)
[2017-10-17] MEDS: COREG PO SCH (08:45)
[2017-10-17] MEDS: SYMBICORT 160-4.5 MCG INHALER IH SCH (08:45)
[2017-10-17] MEDS: PROAIR HFA IH SCH (08:46)
--- NOTE | 2017-10-17 11:03 | PCM.PROG ---
Attending Provider: ATTENDING PROVIDER: Dr. KELI GUPTA This patient is seen with Patito Rodriguez, Nurse Practitioner. DATE OF SERVICE: 10/17/17 SUBJECTIVE: This 87 year old WHITE/ F was hospitalized 10/07/17. The patient is lying in bed, alert. No nausea. The patient had stool yesterday, which was liquid. The patient is still complaining of pain today. Slowly advancing diet. REVIEW OF SYSTEMS: CONSTITUTIONAL: Weakness. No night sweats. No malaise, lethargy. No fever or chills. HEENT: Eyes: No visual changes. No eye pain. No eye discharge. ENT: No runny nose. No epistaxis. No sinus pain. No odynophagia. No congestion. RESPIRATORY: No cough, no congestion. No hemoptysis. No shortness of breath. CARDIOVASCULAR: No angina symptoms. No CHF symptoms. No atypical chest pain for CAD. No palpitations. No orthopnea.. GASTROINTESTINAL: No abdominal pain. No nausea or vomiting. No diarrhea or constipation. No hematemesis. No hematochezia. GENITOURINARY: No urgency. No frequency. No dysuria. No hematuria. No obstructive symptoms. No discharge. No pain. No significant abnormal bleeding. MUSCULOSKELETAL: Generalized pain. NEUROLOGICAL: Awake, alert, oriented to time, place and person. No headache. No neck pain. No syncope. No seizures. No dizziness. PSYCHIATRIC: Not anxious. No depression. No suicidal thoughts. No homicidal thoughts. SKIN: No rash. No lesions. No wounds. ENDOCRINE: No unexplained weight loss. No weight gain. HEMATOLOGIC/LYMPHATIC: No anemia. No purpura. No petechiae. No prolonged or excessive bleeding. No palpable lymph nodes. PHYSICAL EXAMINATION: GENERAL: The patient is awake, alert and oriented, lying in bed in no distress. VITAL SIGNS: Temperature 98.9 F, Pulse 51, Respiratory Rate 16, BP 126/68, Pulse Ox 99% HEENT: Head normocephalic, atraumatic. Eyes: Extraocular muscles are intact. Pupils are equal, round and reactive to light and accommodation. Ears: No lesions. Nose appeared normal. Throat: No exudate or erythema. NECK: Supple. No JVD, no carotid bruit. No lymphadenopathy or thyromegaly. LUNGS: Diminished breath sounds bilaterally. Clear to auscultation. Percussion note normal. Chest symmetrical. Chest wall tenderness. HEART: S1, S2, no S3. No murmurs. No cyanosis or clubbing. No ascites. Pulses: Dorsalis pedis and posterior tibial pulses +1 to +2 both sides. ABDOMEN: Soft. Non-tender. Bowel sounds active. No CVA tenderness. No mass felt. EXTREMITIES: No edema. Full range of motion of all extremities, equal. NEUROLOGIC: No focal deficit. Cranial nerves II through XII are grossly intact. No headache, no double vision or headache. SKIN: Not dry. Intact. Turgor-normal. LYMPHATIC: No palpable lymph nodes/no lymphedema. MUSCULOSKELETAL: Normal joints with no swelling. Muscle tone is normal. LAB REVIEW: 10/16/17 04:10 10/16/17 04:10 ASSESSMENT: 1. Abdominal pain, nausea resolved 2. Pneumonia resolved 3. Chest pain atypical, noncardiac 4. History of CAD 5. Chronic lung disease 6. Anemia PLAN: 1. Evaluate for swing bed 2. PT/OT consult Plan and coordination of the patient's care discussed in the presence of Dynamometer Tuner and nurse. CONDITION: Stable SCRIBED BY: ZHANNA RICHARD Undercover Operator scribed while in presence of service performed by Dr. Gupta/Patito Rodriguez APRN on 10/17/17 ([id number])
--- NOTE | 2017-10-17 11:51 | RS.PTINEVL ---
Subjective - Patient information Date of Evaluation: 10/17/17 Date of Arrival on Unit: 10/07/17 Admitted From:: Home Diagnosis: B pneumonia, COPD Usual Living Arrangement: Alone Living Arrangement Comments: Lives alone in own home. Assist from family as needed. Home Environment: House, Stairs (few), Rail Medical History: Hypertension, COPD, Arthritis, Cancer (colon) Medical History Comments:: peripheral neuropathy LATEX ALLERGY?: No Surgical History: Hysterectomy Surgical History Comments:: AAA repair Medications: see chart Subjective Information/ Patient Comments:: pt states she lives alone and is independent with all ADL's, amb with rollator rwx, as well as driving prior to admission - Level of function Prior to this admission, the patient could do the following:: Independent Selfcare, Independent Ambulation Current Level of Function: Partially Dependent Current Equipment Used at Home: rolling walker, oxygen Pain Assessement - Location lumbar Description: Aching Intensity: 8 (at rest) Pain Behavior: Moaning, Facial Grimacing Pain Aggravating Factors: Changing Position, Exercise/Activity, Standing, Walking Pain Alleviating Factors: Medication Interventions - Objective Patient Orientation: Person, Place, Time Current Interventions: IV's, Oxygen, Telemetry Range of Motion - ROM Right Upper Extremity AROM: WFL's Left Upper Extremity AROM: WFL's Right Lower Extremity AROM: WFL's Left Lower Extremity AROM: WFL's Muscle Strength - Muscle Strength Right Upper Extremity Strength: Mild Weakness (grossly 4-/5) Left Upper Extremity Strength: Mild Weakness (grossly 4-/5) Right Lower Extremity Strength: Mild Weakness (hip flex 4-/5, knee flex/ext 4/5 , ankle Df/PF 4/5) Left Lower Extremity Strength: Mild Weakness (hip flex 3+/5, knee flex/ext 4-/5 , ankle Df/PF 4/5) Sensation - Sensation Right Upper Extremity Sensation: Intact/Normal Left Upper Extremity Sensation: Intact/Normal Right Lower Extremity Sensation: Intact/Normal Left Lower Extremity Sensation: Intact/Normal Palpation Palpation Findings: Tenderness Comments:: lumbar spine Balance - Sitting Balance and Reactions Static Sitting Balance: Good Dynamic Sitting Balance: Fair Sitting Equilibrium Reactions: Delayed Left, Delayed Right Sitting Protective Reactions: Delayed Left, Delayed Right - Standing Balance and Reactions Static Standing Balance: Fair Dynamic Standing Balance: Poor Standing Equilibrium Reactions: Delayed Left, Delayed Right Standing Protective Reactions: Delayed Left, Delayed Right - Comments Balance Assessment Comments: pt with occasional increased lat sway and decreased step length. Functional Mobility - Bed Mobility Comments:: pt seen sitting up in chair - Transfers Sit to Stand: Min Assist, Verbal Cues Stand to Sit: Min Assist, 1 person assist - Safety Awareness Safety Awareness: Good Ambulation - Ambulation Assistive Device Used: Rolling Walker Orthotic/Prosthetic Device: No Distance: 140ft Assistance needed with Ambulation: CGA Quality of Ambulation: CGA x 1 +1 for O2 and IV pole Gait Deviations: Forward posture, Short stride Ambulation Comments: pt amb with occasional increased lat sway, decreased step length, flexed posture. Factors Affecting Ambulation: Decreased Balance, Pain, Weakness, Decreased Safety, Limited Endurance Treatment time - Time with patient Total treatment time: 28 Patient Education - Education Patient Education: Home Exercise Program, Activity Modification, Education of Plan of Care Teaching Recipient: Patient Teaching Methods: Discussion (Discussion with patient regarding POC) Assessment - Assessment Problem List:: Decreased level of function, Requires training/education, Decreased safety/Risk of falls, Weakness, Pain limits previous level of function Rehab Potential: Good Further Therapy Indicated?: Yes Evaluation Complexity: HISTORY: Medium (COPD, pneumonia, OA, anemia), EXAM OF BODY SYSTEMS: Medium (strength, balance , gait), CLINICAL PRESENTATION: Medium ( evolving), CLINICAL DECISION MAKING: Medium Short Term Goals GOAL #1: sup to/from sit to/from stand SBA Goal to be met by: 10/20/17 GOAL #2: amb with rwx with SBA 150ft with no LOB Goal to be met by: 10/20/17 GOAL #3: Improved BLE strength 4 to 4+/5 and independent with HEP GOAL #4: . 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
[2017-10-17] MEDS: DEXTROSE 5%-1/2NS IV SOLUTION 1,000 ML IV SCH (12:00)
[2017-10-17 14:58] VITALS: BP 133/53; TEMP 98.3
--- NOTE | 2017-10-18 10:33 | PN ---
DATE OF SERVICE: 10/13/17 SUBJECTIVE: The patient was seen and examined with the nurse practitioner. Chest pain - still sore. The patient has had this chest pain for 48 hours with no change in the EKG. It is rated as 1 to 2 on a scale of 1 to 10. The patient has musculoskeletal pain. Cardiovascular status is stable. Leukocytosis is from steroids. She is feeling a lot better. Oxygen saturation 98% with 2L. Vitals are stable. The patient will be discharged home on Keflex and Prednisone. TIME SPENT: More than 30 minutes. Plan and coordination of the patient's care discussed in the presence of nurse. NAEL
--- NOTE | 2017-10-18 10:35 | PN ---
CODING FOR BILLING 10/07/17 LEVEL 5 10/08/17 INTERMEDIATE 10/09/17 INTERMEDIATE 10/10/17 INTERMEDIATE 10/11/17 INTERMEDIATE 10/12/17 INTERMEDIATE 10/13/17 DISCHARGE MTDD
--- NOTE | 2017-10-18 10:47 | PN ---
DATE OF SERVICE: 10/14/17 SUBJECTIVE: 87-year-old white female was seen and examined with the nurse practitioner. The patient's existing problem is abdominal pain and cramping. She had diarrhea but diarrhea seems to have resolved. WBC count is 45,000. PHYSICAL EXAMINATION: HEENT: Head normocephalic, atraumatic. Eyes: Extraocular muscles are intact. Pupils are equal, round and reactive to light and accommodation. Ears: No lesions. Nose appeared normal. Throat: No exudate or erythema. NECK: Supple. No JVD, no carotid bruit. No lymphadenopathy or thyromegaly. LUNGS: Decreased breath sounds. Clear to auscultation. Percussion note normal. Chest symmetrical. HEART: S1, S2, no S3. No murmurs. No cyanosis or clubbing. No ascites. Pulses: Dorsalis pedis and posterior tibial pulses +1 to +2 both sides. ABDOMEN: Soft. Tenderness generalized. Bowel sounds active. No CVA tenderness. No mass felt. EXTREMITIES: No edema. Full range of motion of all extremities, equal. NEUROLOGIC: No focal deficit. Cranial nerves II through XII are grossly intact. No headache, no double vision or headache. SKIN: Not dry. Intact. Turgor - normal. LYMPHATIC: No palpable lymph nodes/no lymphedema. MUSCULOSKELETAL: Normal joints with no swelling. Muscle tone is normal. The patient had CT scan of the abdomen done which showed enteritis with early possibility of small bowel obstruction. There was no perforation. There was no evidence of aneurysm leakage. The patient's amylase was 600, normal. The patient likely has probably peptic ulcer sitting on the pancreas causing pancreatitis. All this discussed with Gladis, who is the daughter and another two daughters present. They do not want any resuscitation. She is a DNR. Considering her existing medical conditions, they want her to be comfortable. PLAN: 1. Keep the patient NPO 2. Start Flagyl in case the patient has C. diff; unable to get stool sample. Also start IV fluids at 75 cc/hr. 3. Also give Morphine Sulfate 2 mg every 2 hourly for pain p.r.n.. TIME SPENT: Total time spent with the patient and the family 1.5 hours. Plan and coordination of the patient's care discussed in the presence of nurse. NAEL
--- NOTE | 2017-10-18 10:49 | PN ---
CODING FOR BILLING 10/14/17 CODE EXTENSIVE (SPENT 1.5 HOURS WITH THE FAMILY) NAEL
--- NOTE | 2017-10-18 10:59 | PN ---
DATE OF SERVICE: 10/15/17 SUBJECTIVE: 87-year-old white female hospitalized with pneumonia, which seems to be practically resolved. Her new problem is abdominal pain and acute pancreatitis with likely peptic ulcer disease. The patient is feeling better, had a good night's sleep according to the daughter. REVIEW OF SYSTEMS: CONSTITUTIONAL: She is sleepy. No night sweats. No fatigue, malaise, lethargy. No fever or chills. HEENT: Eyes: No visual changes. No eye pain. No eye discharge. ENT: No runny nose. No epistaxis. No sinus pain. No sore throat. No odynophagia. No congestion. RESPIRATORY: No cough, no congestion. No hemoptysis. No shortness of breath. CARDIOVASCULAR: No angina symptoms. No CHF symptoms. No atypical chest pain for CAD. No palpitations. No orthopnea. GASTROINTESTINAL: She is NPO at the present time. No abdominal pain - on Morphine Sulfate. No nausea or vomiting. No diarrhea or constipation. No hematemesis. No hematochezia. GENITOURINARY: No urgency. No frequency. No dysuria. No hematuria. No obstructive symptoms. No discharge. No pain. No significant abnormal bleeding. MUSCULOSKELETAL: No musculoskeletal pain; no joint swelling. NEUROLOGICAL: No headache. No neck pain. No syncope. No seizures. No dizziness. PSYCHIATRIC: Not anxious. No depression. No suicidal thoughts. No homicidal thoughts. SKIN: No rash. No lesions. No wounds. ENDOCRINE: No unexplained weight loss. No weight gain. HEMATOLOGIC/LYMPHATIC: No anemia. No purpura. No petechiae. No prolonged or excessive bleeding. No palpable lymph nodes. PHYSICAL EXAMINATION: VITAL SIGNS: Temperature 97.3, pulse 80, respiratory rate 16, BP 140/66, pulse ox 94%. HEENT: Head normocephalic, atraumatic. Eyes: Extraocular muscles are intact. Pupils are equal, round and reactive to light and accommodation. Ears: No lesions. Nose appeared normal. Throat: No exudate or erythema. NECK: Supple. No JVD, no carotid bruit. No lymphadenopathy or thyromegaly. LUNGS: Clear to auscultation. Percussion note normal. Chest symmetrical. HEART: S1, S2, no S3. No murmurs. No cyanosis or clubbing. No ascites. Pulses: Dorsalis pedis and posterior tibial pulses +1 to +2 both sides. ABDOMEN: Abdomen is flat. Mildly tender generalized. Bowel sounds hypoactive. No CVA tenderness. No mass felt. EXTREMITIES: No edema. Full range of motion of all extremities, equal. NEUROLOGIC: No focal deficit. Cranial nerves II through XII are grossly intact. No headache, no double vision or headache. SKIN: Not dry. Intact. Turgor - normal. LYMPHATIC: No palpable lymph nodes/no lymphedema. MUSCULOSKELETAL: Normal joints with no swelling. Muscle tone is normal. LABS: Hemoglobin 10.7, hematocrit 32, WBC 46,000, normal differential. Creatinine 0.9 , BUN 45, potassium 5.3. ASSESSMENT: 1. ABDOMINAL PAIN SEEMS TO BE RESOLVING 2. ACUTE PANCREATITIS WITH LIKELY PEPTIC ULCER DISEASE SITTING ON THE TAIL OF THE PANCREAS - NOT ON THE PANCREAS 3. CARDIOVASCULAR STATUS STABLE 4. NO ABDOMINAL ANEURYSM LEAKING OR PERFORATION OF STOMACH As expected, the patient's hemoglobin, hematocrit is stable with no evidence of GI bleed. PLAN: 1. Clear liquids. No milk products. 2. IV fluids 75 cc/hr. Watch for fluid overload. 3. Start Coreg 12.5 p.o. daily. 4. Continue all of the oral medications. CONDITION: Stable TIME SPENT: More than 30 minutes. Plan and coordination of the patient's care discussed in the presence of nurse. NAEL
--- NOTE | 2017-10-18 11:06 | PN ---
DATE OF SERVICE: 10/16/17 SUBJECTIVE: 87-year-old white female hospitalized with pneumonia. The patient's condition has improved alot. She is awake, alert, mild discomfort in the abdomen. She wants to eat oatmeal. REVIEW OF SYSTEMS: CONSTITUTIONAL: No night sweats. No fatigue, malaise, lethargy. No fever or chills. HEENT: Eyes: No visual changes. No eye pain. No eye discharge. ENT: No runny nose. No epistaxis. No sinus pain. No sore throat. No odynophagia. No congestion. RESPIRATORY: No cough, no congestion. No hemoptysis. No shortness of breath. CARDIOVASCULAR: No angina symptoms. No CHF symptoms. No atypical chest pain for CAD. No palpitations. No orthopnea. GASTROINTESTINAL: Mild discomfort in the abdomen. No nausea or vomiting. No diarrhea or constipation. No hematemesis. No hematochezia. GENITOURINARY: No urgency. No frequency. No dysuria. No hematuria. No obstructive symptoms. No discharge. No pain. No significant abnormal bleeding. MUSCULOSKELETAL: No musculoskeletal pain; no joint swelling. NEUROLOGICAL: No headache. No neck pain. No syncope. No seizures. No dizziness. PSYCHIATRIC: Not anxious. No depression. No suicidal thoughts. No homicidal thoughts. SKIN: No rash. No lesions. No wounds. ENDOCRINE: No unexplained weight loss. No weight gain. HEMATOLOGIC/LYMPHATIC: No anemia. No purpura. No petechiae. No prolonged or excessive bleeding. No palpable lymph nodes. PHYSICAL EXAMINATION: GENERAL: The patient is oriented to time, place and person. Looks somewhat pale. VITAL SIGNS: Temperature 98, pulse 60, respiratory rate 16, BP 124/60. Pulse ox 99%. HEENT: Head normocephalic, atraumatic. Eyes: Extraocular muscles are intact. Pupils are equal, round and reactive to light and accommodation. Ears: No lesions. Nose appeared normal. Throat: No exudate or erythema. NECK: Supple. No JVD, no carotid bruit. No lymphadenopathy or thyromegaly. LUNGS: Decreased breath sounds as usual. Clear to auscultation. Percussion note normal. Chest symmetrical. HEART: S1, S2, no S3. No murmurs. No cyanosis or clubbing. No ascites. Pulses: Dorsalis pedis and posterior tibial pulses +1 to +2 both sides. ABDOMEN: Flat. Soft. Maybe mild tenderness. No rebound tenderness. Bowel sounds active. No CVA tenderness. No mass felt. EXTREMITIES: No edema. Full range of motion of all extremities, equal. NEUROLOGIC: No focal deficit. Cranial nerves II through XII are grossly intact. No headache, no double vision or headache. SKIN: Dry. Intact. Turgor - normal. LYMPHATIC: No palpable lymph nodes/no lymphedema. MUSCULOSKELETAL: Normal joints with no swelling. Muscle tone is normal. LABS: Hemoglobin 9.4, hematocrit 28, WBC 30,000. Creatinine 0.9, BUN 48, potassium 4.7. ASSESSMENT: 1. ACUTE PANCREATITIS SEEMS TO BE RESOLVING WITH AMYLASE LEVEL OF 350, WAS MORE THAN 600 A COUPLE OF DAYS AGO. 2. LIKELY PEPTIC ULCER DISEASE. 3. LEUKOCYTOSIS COULD BE FROM PANCREATITIS AND/OR C.DIFF, UNABLE TO GET ANY STOOL SAMPLE BUT PATIENT IS ON FLAGYL. 4. THE PATIENT WANTS TO EAT. ONE OF THE DAUGHTERS IS IN THE ROOM. 5. WILL CONTINUE IV FLUIDS. 6. WILL CONTINUE TO GIVE MORPHINE SULFATE q.2HR P.R.N. 7. TELEMETRY 8. WILL DO ECHO IN THE MORNING. CONDITION: Stabilizing. PROGNOSIS: Guarded. TIME SPENT: More than 30 minutes. Plan and coordination of the patient's care discussed in the presence of nurse. NAEL
--- NOTE | 2017-10-18 11:08 | PN ---
DATE OF SERVICE: 10/17/17 SUBJECTIVE: The patient was hospitalized with pneumonia which has resolved. The patient's condition worsened with abdominal pain. She had acute pancreatitis which seems to be resolving. Also seems to have peptic ulcer disease. The hgb and hct is stable with no evidence of active GI bleed. Her kidney functions are stable with some evidence of dehydration. She is put on clear liquids and she tolerating it well. Her vitals are stable with temperature 98.9, pulse 50, respiratory rate 16, blood pressure 126/68 and pulse ox 99%. The patient was seen and examined with the Nurse Practitioner. CONDITION: Stable TIME SPENT: More than 30 minutes. Plan and coordination of the patient's care discussed in the presence of nurse. NAEL
--- NOTE | 2017-10-18 14:42 | DS ---
DATE OF SERVICE: 10/17/17 (FROM ACUTE TO BE ADMITTED TO SWING BED) FINAL DIAGNOSIS: 1. BILATERAL PNEUMONIA 2. SEVERE COPD, OXYGEN DEPENDENT 3. GENERALIZED WEAKNESS 4. ABDOMINAL PAIN WITH ELEVATED AMYLSE SEEMS TO BE IMPROVING 5. NAUSEA 6. ATYPICAL CHEST PAIN DISCHARGE INSTRUCTIONS: 1. Will admit to swing bed. MEDICATIONS AT DISCHARGE: (TO SWING BED) Albuterol 2 puff IH b.i.d. ANKITA Symbicort 160-4.5 mg two puff IH b.i.d. ANKITA Coreg 12.5 mg p.o. b.i.d. with meal Decadron 4 mg/mL IM daily ANKITA IV D5 1/2 NS 1000 mls @ 75 mls/hr IV q.[id number] ANKITA Toradol 30 mg IVP q.8hr ANKITA Xopenex 1.25 mg q.6hr Metronidazole 100 mls @ 100 mls/hr IV q.8hr ANKITA Morphine 2 mg IVP q.2h p.r.n. Zofran 4 mg IVP q4hr ANKITA Protonix 40 mg IVP daily ANKITA NEW PRESCRIPTIONS: N/A DIET INSTRUCTIONS: As patient tolerates ACTIVITY: As patient tolerates SMOKING: Nonsmoker DISEASE SPECIFIC EDUCATION: Swing bed admission for PT/OT services, IV fluids and pain management explained and daughter is agreeable. HOSPITAL COURSE: This is an 87-year-old white female who was admitted through the emergency room with cough, shortness of breath. Chest x-ray revealed bilateral pneumonia. She was then admitted, placed on routine telemetry orders with continuous telemetry , started on Rocephin 1 gm IV daily along with Zithromax 500 mg p.o. daily for 3 days. She was started on Solu-Cortef 125 mg IV q.8hr and Xopenex neb treatments q.6hr. Over the course of several days, her pneumonia steadily improved. She is a fdc smoker with severe COPD who requires oxygen off and on most all the time. Her pneumonia seemed to have improved however on 10/10 she stated her cough and shortness of breath was better. She was getting ready to go home and then started experiencing chest pain. She has a history of noncardiac chest pain for which she replied that she takes two [place] at home and the pain seems to subside. Her cardiac markers were all negative. There was no change in her EKG. Repeat chest x-ray was done which showed improvement in the pneumonia. There was no cardiac cause for her chest pain. She was restarted on steroids, given Toradol IV 30 mg q.8hr and then started on Morphine 2 mg. Her chest pain started to improve, which is more pleuritic chest wall type pain and then over about three days later she started developing abdominal pain for which she has a history of recurrent abdominal pain. CT of the abdomen showed that she had enteritis, colitis, possible early bowel obstruction but she had had several bowel movements that were loose. We started her on Flagyl 500 mg IV q.8hr, made her NPO. Her amylse was elevated at 606 so it was thought that she could possibly have early pancreatitis. After being NPO for 24 to 48 hours and restarting IV fluids, D5 1/2 NS at 83 cc/hr, her abdominal pain has waxed and waned. Some days it has improved, some days she is hurting again. She has been complaining of nausea off and on but is refusing to eat. Stool was tested for C. diff which was negative because she had some loose stools. Today, we made her Zofran 4 mg IV q.6hr. She has been NPO again as she has had two emesis today. We are going to place an NG tube. Her vital signs have been stable. On day of discharge, temperature 97, BP 112/60, heart rate 70, respirations 18, pulse ox 100% on 2L. She has agreed for physical and occupational therapy. Again she is very frail. She is cachexic. She does not eat very well. She is a small framed lady, very weak due to her severe COPD and then her abdominal pain. We will place her in swing bed for physical and occupational therapy. TIME SPENT: More than 60 minutes. [facility]
== END 2017-10-17 15:00 | disposition swing bed (61) | DRG 193 ==
LOC: ED 13:20 → MEDSURG B 19:47
PROVIDERS: ADMIT Internal Medicine; ATTEND Internal Medicine
DX: J18.9 Pneumonia, unspecified organism (principal); K85.90 Acute pancreatitis without necrosis or infection, unspecified; R64 Cachexia; K27.3 Acute peptic ulcer, site unspecified, without hemorrhage or perforation; M54.9 Dorsalgia, unspecified; I25.10 Atherosclerotic heart disease of native coronary artery without angina pectoris; R01.1 Cardiac murmur, unspecified; J44.9 Chronic obstructive pulmonary disease, unspecified; R07.81 Pleurodynia; R63.0 Anorexia; R53.1 Weakness; D64.9 Anemia, unspecified; I25.2 Old myocardial infarction; R07.89 Other chest pain; K52.9 Noninfective gastroenteritis and colitis, unspecified; R74.8 Abnormal levels of other serum enzymes; D72.829 Elevated white blood cell count, unspecified; Z79.899 Other long term (current) drug therapy; Z95.5 Presence of coronary angioplasty implant and graft; Z87.891 Personal history of nicotine dependence; Z99.81 Dependence on supplemental oxygen
CPT/HCPCS: 36415; 80053; 82150; 82550; 82803; 83690; 84145; 84484; 85007; 85025; 87040; 87493; 87502; 87651; 93005; 93010; 94640; 96365; 96375; 97802; 99284

== ENCOUNTER 2017-10-17 15:00 | Inpatient (IN) ==
[2017-10-17] MEDS ORDERED: TORADOL IVP PRN (16:56)
[2017-10-17] MEDS ORDERED: MORPHINE 2 MG/ML SYRINGE IVP PRN (16:58)
[2017-10-17] MEDS ORDERED: DEXTROSE 5%-1/2NS IV SOLUTION 1,000 ML IV SCH (17:00)
[2017-10-17] MEDS ORDERED: MORPHINE 2 MG/ML SYRINGE ONE ×3 (17:29→21:37)
[2017-10-17] MEDS: COREG PO SCH (17:41)
[2017-10-17 17:58] VITALS: BMI 17.6
[2017-10-17] MEDS: XOPENEX 1.25 MG NEB PRN (19:30)
[2017-10-17] MEDS: FLAGYL 500 MG/100 ML 500 MG in PREMIX 100 ML NS 1 BAG IV SCH (20:17)
[2017-10-17] MEDS ORDERED: XANAX PO PRN (21:34)
[2017-10-17] MEDS: MORPHINE 2 MG/ML SYRINGE IVP PRN (21:40)
[2017-10-18] MEDS: MORPHINE 2 MG/ML SYRINGE IVP PRN ×4 (02:41→12:34)
[2017-10-18] MEDS: ZOFRAN 4 MG/2 ML IVP PRN ×2 (02:41→08:13)
[2017-10-18] MEDS: FLAGYL 500 MG/100 ML 500 MG in PREMIX 100 ML NS 1 BAG IV SCH ×2 (05:47→13:36)
[2017-10-18] MEDS: XOPENEX 1.25 MG NEB PRN (05:55)
[2017-10-18] MEDS: SYMBICORT 160-4.5 MCG INHALER IH SCH ×2 (07:07→10:28)
[2017-10-18] MEDS: PROAIR HFA IH SCH ×2 (07:07→10:28)
[2017-10-18] MEDS: COREG PO SCH ×2 (08:20→18:07)
[2017-10-18] MEDS ORDERED: PROTONIX IV IVP SCH (09:00)
[2017-10-18] MEDS ORDERED: DECADRON 4 MG/ML SDV IM SCH (09:00)
[2017-10-18] MEDS ORDERED: PROTONIX PO SCH (09:00)
[2017-10-18] MEDS ORDERED: XANAX PO SCH (09:00)
[2017-10-18] MEDS: ZOFRAN 4 MG/2 ML IVP SCH ×2 (09:00→14:16)
--- NOTE | 2017-10-18 09:06 | PCM.PROG ---
Attending Provider: ATTENDING PROVIDER: Dr. KELI GUPTA This patient is seen with Patito Rodriguez, Nurse Practitioner. DATE OF SERVICE: 10/18/17 SUBJECTIVE: This 87 year old WHITE/ F was hospitalized 10/17/17. The patient is alert, complaining of nausea. CBC and CMP still pending. Increase Xanax to b.i.d. Will make Zofran q.6hr scheduled. The patient is refusing to eat. She is requesting Morphine every 2 hours; has vomited two times. REVIEW OF SYSTEMS: CONSTITUTIONAL: Weakness. No night sweats. No malaise, lethargy. No fever or chills. HEENT: Eyes: No visual changes. No eye pain. No eye discharge. ENT: No runny nose. No epistaxis. No sinus pain. No odynophagia. No congestion. RESPIRATORY: No cough, no congestion. No hemoptysis. No shortness of breath. CARDIOVASCULAR: No angina symptoms. No CHF symptoms. No atypical chest pain for CAD. No palpitations. No orthopnea.. GASTROINTESTINAL: Nausea, vomiting. No abdominal pain. No diarrhea or constipation. No hematemesis. No hematochezia. GENITOURINARY: No urgency. No frequency. No dysuria. No hematuria. No obstructive symptoms. No discharge. No pain. No significant abnormal bleeding. MUSCULOSKELETAL: No musculoskeletal pain; no joint swelling. NEUROLOGICAL: Awake, alert, oriented to time, place and person. No headache. No neck pain. No syncope. No seizures. No dizziness. PSYCHIATRIC: Anxious. No depression. No suicidal thoughts. No homicidal thoughts. SKIN: No rash. No lesions. No wounds. ENDOCRINE: No unexplained weight loss. No weight gain. HEMATOLOGIC/LYMPHATIC: No anemia. No purpura. No petechiae. No prolonged or excessive bleeding. No palpable lymph nodes. PHYSICAL EXAMINATION: GENERAL: The patient is awake, alert and oriented, sitting in chair in no distress. VITAL SIGNS: Temperature 97.4 F, Pulse 67, Respiratory Rate 20, BP 112/61, Pulse Ox 100% HEENT: Head normocephalic, atraumatic. Eyes: Extraocular muscles are intact. Pupils are equal, round and reactive to light and accommodation. Ears: No lesions. Nose appeared normal. Throat: No exudate or erythema. NECK: Supple. No JVD, no carotid bruit. No lymphadenopathy or thyromegaly. LUNGS: Diminished breath sounds bilaterally. Clear to auscultation. Percussion note normal. Chest symmetrical. HEART: S1, S2, no S3. No murmurs. No cyanosis or clubbing. No ascites. Pulses: Dorsalis pedis and posterior tibial pulses +1 to +2 both sides. ABDOMEN: Soft. Non-tender. Bowel sounds active. No CVA tenderness. No mass felt. EXTREMITIES: No edema. Full range of motion of all extremities, equal. NEUROLOGIC: No focal deficit. Cranial nerves II through XII are grossly intact. No headache, no double vision or headache. SKIN: Not dry. Intact. Turgor-normal. LYMPHATIC: No palpable lymph nodes/no lymphedema. MUSCULOSKELETAL: Normal joints with no swelling. Muscle tone is normal. LAB REVIEW: 10/18/17 06:30 10/18/17 06:30 10/18/17 06:30: Sodium 134 L, Potassium 4.6, Chloride 101, Carbon Dioxide 23, Anion Gap 14.6, BUN 28 H, Creatinine 0.70, Estimated GFR (MDRD) 79.00, BUN/ Creatinine Ratio 40.00, Glucose 116 H, Calcium 7.3 L, Total Bilirubin 0.4, AST 20, ALT 18, Alkaline Phosphatase 88 D, Total Protein 5.5 L, Albumin 1.8 L, Globulin 3.7, Albumin/Globulin Ratio 0.49 10/18/17 06:30: WBC 20.33 H D, RBC 3.59 L, Hgb 10.8 L, Hct 32.6 L, MCV 90.8, MCH 30.1, MCHC 33.1, RDW Coeff of Sherri 13.8, Plt Count 305 ASSESSMENT: 1. Abdominal pain, nausea 2. Pneumonia resolved 3. Chest pain atypical, noncardiac 4. History of CAD 5. Chronic lung disease 6. Anemia PLAN: 1. Increase Xanax to twice a day 2. Zofran q.6hr elida 3. Repeat amylase and lipase Plan and coordination of the patient's care discussed in the presence of [employer] Professional and nurse. CONDITION: Stable SCRIBED BY: ZHANNA RICHARD [employer] scribed while in presence of service performed by Dr. Gupta/Patito Rodriguez APRN on 10/18/17 ([id number])
--- NOTE | 2017-10-18 14:04 | HP ---
DATE OF SERVICE: 10/17/17 (ADMITTED TO SWING BED) HISTORY OF PRESENT ILLNESS: 87-year-old white female who has been in acute care with bilateral pneumonia and had developed atypical type chest pain with no cardiac origin which resolved. She developed abdominal pain with an elevated amylase. She has began having nausea and vomiting, cannot eat. CT of the abdomen showed possible colitis, enteritis with some mesenteric edema. No perforation. PAST MEDICAL HISTORY: Left femur fracture AAA DJD CAD with stent Hypertension Cancer of colon Neuropathy Dementia Compound fracture spine Anemia with history of GI bleed Anxiety Emphysema Atrial fibrillation MENSTRUAL HISTORY: Hysterectomy. PAST SURGICAL HISTORY: Colon resection 2004 Hernia repair Hysterectomy Gallbladder Heart cath - Dr. Brunner 04/17 REVIEW OF SYSTEMS: CONSTITUTIONAL: Positive for fatigue, malaise, generalized weakness. No night sweats. No fever or chills. HEENT: Eyes: No visual changes. No eye pain. No eye discharge. ENT: No runny nose. No epistaxis. No sinus pain. No sore throat. No odynophagia. No ear pain. No congestion. RESPIRATORY: No cough, no congestion. No hemoptysis. Positive for shortness of breath. CARDIOVASCULAR: No angina symptoms. No CHF symptoms. No atypical chest pain for CAD. No palpitations. No orthopnea. GASTROINTESTINAL: Abdominal pain. Nausea. No diarrhea or constipation. No hematemesis. No hematochezia. GENITOURINARY: No urgency. No frequency. No dysuria. No hematuria. No obstructive symptoms. No discharge. No pain. No significant abnormal bleeding. MUSCULOSKELETAL: Generalized weakness. NEUROLOGICAL: No headache. No neck pain. No syncope. No seizures. No dizziness. PSYCHIATRIC: Not anxious. No depression. No suicidal thoughts. No homicidal thoughts. SKIN: No rash. No lesions. No wounds. ENDOCRINE: No unexplained weight loss. No weight gain. HEMATOLOGIC/LYMPHATIC: No anemia. No purpura. No petechiae. No prolonged or excessive bleeding. No palpable lymph nodes. PERSONAL/FAMILY/SOCIAL HISTORY: The patient is , lives by herself. Nonsmoker. No alcohol abuse. The patient is being helped by the daughter. She does not do most activity of daily living. The patient wants DNR. The patient is mostly oriented to person and place. MEDICATIONS: Toradol 30 mg IVP q.8hr p.r.n. Xopenex neb q.8h p.r.n. Zofran 4 mg IVP q.4h p.r.n. IV D5 1/2 NS 75 mls/hr Coreg 12.5 mg p.o.b.i.d. with meal Flagyl 500 mg IV Albuterol two puff IH b.i.d. Symbicort two puff IH b.i.d. Xanax 0.5 mg p.o. bedtime p.r.n. Morphine 2 mg IVP q.2h p.r.n. Decadron 4 mg IM daily Protonix 40 mg p.o. q.d. a.c. ALLERGIES: CLINDAMYCIN, PENICILLIN PHYSICAL EXAMINATION: HEENT: Head normocephalic, atraumatic. Eyes: Extraocular muscles are intact. Pupils are equal, round and reactive to light and accommodation. Ears: No lesions. Nose appeared normal. Throat: No exudate or erythema. NECK: Supple. No JVD, no carotid bruit. No lymphadenopathy or thyromegaly. LUNGS: Diminished breath sounds bilaterally. Clear to auscultation. Percussion note normal. Chest symmetrical. HEART: S1, S2, no S3. No murmurs. No cyanosis or clubbing. No ascites. Pulses: Dorsalis pedis and posterior tibial pulses +1 to +2 both sides. ABDOMEN: Soft. Mild abdominal pain. Nontender. No distention. No rigidity or guarding. Bowel sounds active. No CVA tenderness. No mass felt. EXTREMITIES: No edema. Full range of motion of all extremities, equal. NEUROLOGIC: No focal deficit. Cranial nerves II through XII are grossly intact. No headache, no double vision or headache. SKIN: Not dry. Intact. Turgor - normal. LYMPHATIC: No palpable lymph nodes/no lymphedema. MUSCULOSKELETAL: Normal joints with no swelling. Muscle tone is normal. ASSESSMENT: 1. GENERALIZED DECLINE IN FUNCTION 2. WEIGHT LOSS 3. BILATERAL PNEUMONIA SEEMS TO BE RESOLVING 4. GENERALIZED WEAKNESS REQUIRING PT AND OT 5. ABDOMINAL PAIN AND NAUSEA 6. SEVERE COPD, OXYGEN DEPENDENT PLAN: 1. Admit to swing bed. 2. CBC, CMP every other day. 3. Will do repeat amylase and lipase today due to vomiting. 4. Place her on NG tube with low suction. 5. NPO. 6. Continue IV fluids, D5 1/2 NS and 83 cc/hr. 7. Zofran 4 mg IV q.6hr scheduled. TIME SPENT: More than 70 minutes. MTDD
[2017-10-18] MEDS ORDERED: CARAFATE NG SCH (17:00)
[2017-10-18 18:08] VITALS: BP 76/44; TEMP 96.6
--- NOTE | 2017-10-18 20:12 | PCM.PROG ---
Time of : 18:25 (Patient apneic and pulseless; Pupils Fixed and dilated.)
--- NOTE | 2017-10-19 08:17 | ECHO2D ---
Date of Exam: 10/18/17 Ordering Physician: DR. KELI GUPTA Room #: 120 Reason for Echo: CHEST PAIN, SOB M-Mode Normal Adult Results LV Dimensions Normal Adult Results AoV Opening excursions >1.6 >1.6 LVEDD-base- 3.5-5.8 3.6 Ao root dimensions 2.0-3.7 3.1 LVESD-base- 3.1-4.6 L. Atrium dimensions 1.9-3.8 4.4 Post. Wall thickness 0.8-1.1 1.0 IV septum (thickness) 0.7-1.2 1.0 Post. Wall excursion 0.72-1.3 NORMAL Septal motion NORMAL Systolic motion R. Ventricular cavity 1.5-2.0 3.5 LVEF 60% 50% Paradoxical septal wall motion NORMAL 2-D : ENLARGED LEFT ATRIAL AND RIGHT VENTRICLE CAVITIES, NORMAL LEFT VENTRICLE CONTRACTILITY--NO EFFUSION, NO THROMBUS, NO STENOSIS M-MODE: MV: NORMAL AV: CALCIFIC AORTIC VALVE TV: NORMAL PV: CHAMBER SIZE: ENLARGED LEFT ATRIAL AND RIGHT VENTRICLE CAVITIES WALL MOTION: NORMAL PERICARDIUM: NORMAL INTERPRETATION: 1. ENLARGED LEFT ATRIAL AND RIGHT VENTRICLE CAVITIES 2. NORMAL LEFT VENTRICULAR CONTRACTILITY 3. CALCIFIC AORTIC VALVES MTDD
--- NOTE | 2017-10-20 13:18 | PN ---
DATE OF SERVICE: 10/18/17 SUBJECTIVE: The patient was seen in the swing bed. The patient is complaining of epigastric discomfort and pain. Morphine Sulfate has already been increased to 2 mg every 2 hours and she did not sleep last night in spite of 0.5 of Xanax. She will be given 2.5 mg of Xanax twice during the day time and Zofran for nausea. The patient's condition improved a couple of days ago but again has deteriorated. She very likely has acute pancreatitis likely from peptic ulcer disease. Abdominal angina, mesenteric artery stenosis cannot be ruled out with mesenteric arterial insufficiency. PHYSICAL EXAMINATION: HEENT: Head normocephalic, atraumatic. Eyes: Extraocular muscles are intact. Pupils are equal, round and reactive to light and accommodation. Ears: No lesions. Nose appeared normal. Throat: No exudate or erythema. NECK: Supple. No JVD, no carotid bruit. No lymphadenopathy or thyromegaly. LUNGS: Clear to auscultation with decreased breath sounds. Percussion note normal. Chest symmetrical. HEART: S1, S2, no S3. No murmurs. No cyanosis or clubbing. No ascites. Pulses: Dorsalis pedis and posterior tibial pulses +1 to +2 both sides. ABDOMEN: The patient's abdomen on physical exam is mildly tender. Bowel sounds are hypoactive but the abdomen is not distended. EXTREMITIES: No edema. Full range of motion of all extremities, equal. NEUROLOGIC: No focal deficit. Cranial nerves II through XII are grossly intact. No headache, no double vision or headache. SKIN: Not dry. Intact. Turgor - normal. LYMPHATIC: No palpable lymph nodes/no lymphedema. MUSCULOSKELETAL: Normal joints with no swelling. Muscle tone is normal. ASSESSMENT: 1. ABDOMINAL PAIN, PANCREATITIS WITH LIKELY PEPTIC ULCER DISEASE WITH MESENTERIC ISCHEMIA. 2. SEVERE CHRONIC LUNG DISEASE. 3. CORONARY ARTERY DISEASE WITH HISTORY OF STENT. 4. AORTIC ANEURSYM REPAIR. 5. SEVERE PERIPHERAL ARTERIAL DISEASE. PLAN: 1. Continue conservative management with pain management like with Morphine Sulfate, Zofran for nausea. 2. The patient will be kept NPO. The patient's daughter is in the room. Her expectations are high. She was explained about her condition which is critical. Prognosis poor considering all her medical problems with her aging. TIME SPENT: More than 30 minutes. Plan and coordination of the patient's care discussed in the presence of nurse. NAEL
--- NOTE | 2017-10-24 14:09 | DS ---
DATE OF SERVICE: 10/18/17 FINAL DIAGNOSIS: 1. ACUTE RESPIRATORY FAILURE 2. PNEUMONIA 3. ASPIRATION PNEUMONITIS 4. ACUTE PANCREATITIS 5. MESENTERIC EDEMA SECONDARY TO LIKELY PEPTIC ULCER DISEASE AND PANCREATITIS 6. STATUS POST ABDOMINAL AORTIC ANEURYSM REPAIR 7. STATUS POST FEMORAL ARTERY BYPASS 8. CORONARY ARTERY DISEASE WITH STENT 9. SEVERE CHRONIC LUNG DISEASE 10. MALNUTRITION DISCHARGE INSTRUCTIONS: The patient ; please refer to progress note. MEDICATIONS AT DISCHARGE: N/A NEW PRESCRIPTIONS: N/A DIET INSTRUCTIONS: N/A ACTIVITY: N/A SMOKING: N/A DISEASE SPECIFIC EDUCATION: N/A HOSPITAL COURSE: 87-year-old white female was hospitalized with decline in function with pneumonia. The patient was treated with IV antibiotics. Her condition seemed to have improved initially but then she had severe abdominal pain off and on likely from peptic ulcer disease with evidence of acute pancreatitis. The patient was not a candidate for further investigation. The family declined. The patient was DNR. She didn't want any further investigation. In the past year and one-half ago, the patient had GI bleed but the GI specialist had decided not to pursue any endoscopy or colonoscopy because of her overall health status. The patient's health status has deteriorated since then. The patient was treated conservatively 2 to 3 days prior to . She was given Morphine Sulfate every 2 hourly along with Zofran. For further details, please refer to the progress note for the same day - the patient . TIME SPENT: More than 60 minutes. MTDD
== END 2017-10-18 21:37 | disposition expired | DRG 189 ==
LOC: MEDSURG B 15:00
PROVIDERS: ADMIT Internal Medicine; ATTEND Internal Medicine
DX: J96.00 Acute respiratory failure, unspecified whether with hypoxia or hypercapnia (principal); J18.9 Pneumonia, unspecified organism; K85.90 Acute pancreatitis without necrosis or infection, unspecified; K55.059 Acute (reversible) ischemia of intestine, part and extent unspecified; E46 Unspecified protein-calorie malnutrition; K27.9 Peptic ulcer, site unspecified, unspecified as acute or chronic, without hemorrhage or perforation; I51.7 Cardiomegaly; I25.10 Atherosclerotic heart disease of native coronary artery without angina pectoris; I73.9 Peripheral vascular disease, unspecified; J44.9 Chronic obstructive pulmonary disease, unspecified; R07.89 Other chest pain; D64.9 Anemia, unspecified; Z95.5 Presence of coronary angioplasty implant and graft; Z95.820 Peripheral vascular angioplasty status with implants and grafts; Z79.899 Other long term (current) drug therapy
CPT/HCPCS: 36415; 80053; 82150; 83690; 85007; 85025; 94640; 97802; 99306; 99316